=== PATIENT | male | born 1930 | race Caucasian/White ===

== ENCOUNTER 2016-09-19 11:38 | Inpatient (IN) | payer MEDICARE ==
[~2016-09-19] VITALS: Ht 177.8 cm; Wt 72.0 kg
[2016-09-19] VITALS (13 sets, daily range): BP systolic 109–161; BP diastolic 55–76; PULSE 59–91; RESP 9–28; TEMP 97.5–97.8; O2SAT 79–95
[~2016-09-19 11:38] MED LIST: ALLO100 PO; APIX5 PO; CARV12.52 PO; FURO80 PO; HYDR12.56 PO; KCL10 PO; LISI5 PO; OCUV PO; PRAV10 PO; PRED10 PO; SYNT25TA PO; TAMS.4 PO; VITA-13 PO
--- NOTE | 2016-09-19 11:59 | PD ---
HPI Chief Complaint: SOB Time Seen by Provider: 11:58 Travel History International Travel<30 days: No Contact w/Intl Traveler<30days: No History of Present Illness HPI 86-year-old male with a history of atrial fibrillation, CHF, PVD, diabetes, CAD , CKD presents to the emergency department for evaluation of shortness of breath for the past several days. States that the shortness of breath has been worsening. States he has felt weak and tired over the past week as well. 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 He denies any cough or cold symptoms although states he feels he may have pneumonia again. Denies any fever, chills, nausea, vomiting, diarrhea, chest pain, abdominal pain, lightheadedness, dizziness. He denies a history of COPD but admits that he smoked up until 12 years ago. He does not have home oxygen, states that his saturations are usually around 92-96%. [facility] No other complaints. PFSH Past Medical History Atrial Fibrillation: Yes (CARDIOMYOPATHY/DILATED AORTA) Cancer: No Congestive Heart Failure: Yes Coronary Artery Disease: Yes Diabetes: Yes GERD: Yes Glaucoma: Yes (CATARACT) Genitourinary: Yes (BPH ) Herniated Disk: Yes (DJD) Hypertension: Yes Kidney Stones: Yes Musculoskeletal: Yes (DJD OF SPINE) Psychiatric: No Reproductive: No Respiratory: Yes Thyroid Disease: Yes (HYPO) Social History Alcohol Use: No Tobacco Use: No Substance Use: No Allergies-Medications (Allergen,Severity, Reaction): Coded Allergies: Simvastatin (Unverified Adverse Reaction, Unknown, 09/19/16) Reported Meds & Prescriptions Reported Meds & Active Scripts Active Reported Coumadin (Warfarin) 2 Mg Tab 2 Mg PO DAILY Vitamin D-3 (Cholecalciferol) 1,000 Unit Tab 1,000 Units PO DAILY Pravastatin 40 Mg Tab 40 Mg PO DAILY Prednisone 10 Mg Tab 10 Mg PO DAILY Tamsulosin (Tamsulosin HCl) 0.4 Mg Cap 0.4 Mg PO HS Potassium Chloride ER (Potassium Chloride) 10 Meq Cap 10 Meq PO DAILY Allopurinol 100 Mg Tab 100 Mg PO DAILY Synthroid (Levothyroxine Sodium) 25 Mcg Tab 25 Mcg PO DAILY Lasix (Furosemide) 80 Mg Tab 80 Mg PO DAILY Hydrochlorothiazide 12.5 Mg Cap 12.5 Mg PO DAILY Lisinopril 5 Mg Tab 5 Mg PO DAILY Carvedilol 12.5 Mg Tab 12.5 Mg PO BID Review of Systems Except as stated in HPI: all other systems reviewed are Neg Physical Exam Narrative GENERAL: Well-nourished and well-developed male patient with moderate work of breathing but speaking in full sentences. SKIN: Lips are blue, hands and feet with some cyanotic tinting and cool to touch. HEAD: Normocephalic and atraumatic. EYES: No injection, drainage, or hyphema noted. PERRLA. EOMI. ENT: No nasal drainage noted. Oropharynx is clear. NECK: Supple and the trachea is midline. CARDIOVASCULAR: Regular rate and rhythm. RESPIRATORY: Moderate work of breathing, no retractions, speaking in full sentences. Wheezing bilaterally at bases. GASTROINTESTINAL: Abdomen is soft, non-tender, and nondistended. RECTAL EXAM: No masses or tenderness, stool is brown. Performed in the presence of Arleth MELÉNDEZ. MUSCULOSKELETAL: No obvious deformities, swelling, or ecchymosis is present throughout the upper and lower extremities. Patient has full range of motion without any signs of neurovascular compromise. NEUROLOGICAL: Awake, alert, and oriented. Normal speech and gait. Cranial nerves are grossly intact. Data Data Last Documented VS Vital Signs Date Time Temp Pulse Resp B/P Pulse Ox O2 Delivery O2 Flow Rate FiO2 09/19/16 13:12 61 18 161/76 87 BiPAP 09/19/16 12:11 15 09/19/16 11:56 97.6 Orders Complete Blood Count With Diff (09/19/16 11:57) Comprehensive Metabolic Panel (09/19/16 11:57) B-Type Natriuretic Peptide (09/19/16 11:57) Act Partial Throm Time (Ptt) (09/19/16 11:57) Prothrombin Time / Inr (Pt) (09/19/16 11:57) Magnesium (Mg) (09/19/16 11:57) Ckmb (Isoenzyme) Profile (09/19/16 11:57) Troponin I (09/19/16 11:57) Arterial Blood Gas (Abg) (09/19/16 11:57) Influenzae A/B Antigen (09/19/16 11:57) Iv Access Insert/Monitor (09/19/16 11:57) Electrocardiogram (09/19/16 11:57) Ecg Monitoring (09/19/16 11:57) Oximetry (09/19/16 11:57) Oxygen Administration (09/19/16 11:57) Chest, Single Ap (09/19/16 11:57) Sodium Chloride 0.9% Flush (Ns Flush) (09/19/16 12:00) Albuterol Neb (Albuterol Neb) (09/19/16 12:00) CKMB (09/19/16 11:55) CKMB% (09/19/16 11:55) Lactic Acid Sepsis Protocol (09/19/16 13:02) Blood Culture (09/19/16 13:02) Blood Glucose (09/19/16 13:02) Ceftriaxone Inj (Rocephin Inj) (09/19/16 13:15) Azithromycin Inj (Zithromax Inj) (09/19/16 13:15) Furosemide Inj (Lasix Inj) (09/19/16 13:15) Phytonadione Inj (Vitamin K Inj) (09/19/16 13:30) Admit Order (Ed Use Only) (09/19/16 13:27) Labs Laboratory Tests Test 09/19/16 09/19/16 11:55 12:00 White Blood Count 14.5 TH/MM3 Red Blood Count 5.53 MIL/MM3 Hemoglobin 17.5 GM/DL Hematocrit 54.4 % Mean Corpuscular Volume 98.5 FL Mean Corpuscular Hemoglobin 31.7 PG Mean Corpuscular Hemoglobin 32.2 % Concent Red Cell Distribution Width 17.3 % Platelet Count 261 TH/MM3 Mean Platelet Volume 8.4 FL Neutrophils (%) (Auto) % Lymphocytes (%) (Auto) % Monocytes (%) (Auto) % Eosinophils (%) (Auto) % Basophils (%) (Auto) % Neutrophils # (Auto) TH/MM3 Lymphocytes # (Auto) TH/MM3 Monocytes # (Auto) TH/MM3 Eosinophils # (Auto) TH/MM3 Basophils # (Auto) TH/MM3 CBC Comment AUTO DIFF Differential Total Cells 100 Counted Neutrophils % (Manual) 32 % Lymphocytes % 64 % Monocytes % 4 % Neutrophils # (Manual) 4.6 TH/MM3 Differential Comment FINAL DIFF MANUAL Smudge Cells PRESENT Platelet Estimate NORMAL Platelet Morphology Comment NORMAL Red Cell Morphology Comment NORMAL Prothrombin Time GREATER THAN 180.0 SEC Prothromb Time International GREATER THAN Ratio 14.5 RATIO Activated Partial 68.6 SEC Thromboplast Time Sodium Level 143 MEQ/L Potassium Level 5.1 MEQ/L Chloride Level 103 MEQ/L Carbon Dioxide Level 28.1 MEQ/L Anion Gap 12 MEQ/L Blood Urea Nitrogen 65 MG/DL Creatinine 2.42 MG/DL Estimat Glomerular Filtration 26 ML/MIN Rate Random Glucose 117 MG/DL Calcium Level 8.8 MG/DL Magnesium Level 2.4 MG/DL Total Bilirubin 1.3 MG/DL Aspartate Amino Transf 21 U/L (AST/SGOT) Alanine Aminotransferase 17 U/L (ALT/SGPT) Alkaline Phosphatase 129 U/L Total Creatine Kinase 101 U/L Creatine Kinase MB 3.3 NG/ML Troponin I 0.03 NG/ML B-Type Natriuretic Peptide 3058 PG/ML Total Protein 7.4 GM/DL Albumin 3.4 GM/DL Blood Gas Puncture Site RT RADIAL Blood Gas Patient Temperature 98.6 Blood Gas HCO3 23 mmol/L Blood Gas Base Excess -3.3 mmol/L Blood Gas Oxygen Saturation 96 % Arterial Blood pH 7.27 Arterial Blood Partial 51 mmHg Pressure CO2 Arterial Blood Partial 239 mmHG Pressure O2 Arterial Blood Oxygen Content 23.5 Vol % Arterial Blood 2.0 % Carboxyhemoglobin Arterial Blood Methemoglobin 1.6 % Blood Gas Hemoglobin 17.2 G/DL Oxygen Delivery Device NRB Blood Gas Liter Flow 15 L/M Blood Gas Inspired Oxygen 100 % MDM Medical Decision Making Medical Screen Exam Complete: Yes Emergency Medical Condition: Yes Differential Diagnosis Hypoxemic respiratory failure versus acute on chronic respiratory failure versus pneumonia versus ACS versus CHF Narrative Course 86-year-old male presents to the emergency Department from home for evaluation of worsening shortness of breath. Patient is afebrile. His initial oxygen saturation is 81% on room air and his lips are cyanotic. Despite these findings he is able to speak full sentences. He has wheezing of his lungs on exam. Patient is immediately placed on nonrebreather oxygen and cardiac telemetry. IV access is obtained, labs were drawn and sent. Arterial blood gas shows respiratory acidosis with CO2 retention. Patient is placed on bipap and administered albuterol nebs. Chest x-ray shows right-sided pneumonia. CBC shows an elevated white blood cell count of 14.5. CMP shows elevated creatinine of 2.42, BUN 65, GFR 26. This is elevated from previous lab values 2 years ago. Troponin is 0.03. BNP is significantly elevated at 3058. INR is greater than 14.5, PT greater than 180, aPTT 68.6. Patient is administered Rocephin 1 g IV, Zithromax 500 mg IV, Lasix 40 mg IV, and Vitamin K 10 mg IV. His saturation remains around low 80's but this is difficult to determine reliability as he has poor perfusion. He reports his symptoms have improved after nebs and on bipap. He is still mentating well and speaking in full sentences. He will be admitted to the intensivists service for acute respiratory failure, community-acquired pneumonia, CHF exacerbation, supratherapeutic INR. I discussed the case with my attending physician Dr. Rooney who is aware of the patients history, physical examination findings, and treatment plan. [facility] Point of Care Internal Pos. & Neg. Controls: Passed Fecal Specimen Occult Blood: Negative Physician Communication Physician Communication My attending physician Dr. Rooney spoke with Dr. Nix burlapper who agrees to admit the patient to their service. Diagnosis Primary Impression: Acute hypoxemic respiratory failure Additional Impressions: Community acquired pneumonia [id number] kidney injury CHF exacerbation Qualified Code: I50.9 - Acute on chronic congestive heart failure, unspecified congestive heart failure type Supratherapeutic INR Admitting Information Admitting Physician Requests: Admit Tonya Graf Sep 19, 2016 11:58
[2016-09-19] MEDS ORDERED: SODIUM CHLORIDE 0.9% FLUSH 5 ML FLUSH IVF PRN (12:00)
[2016-09-19] MEDS ORDERED: APIX5TAB PO (12:10)
[2016-09-19] MEDS ORDERED: PRAV40TA2 PO (12:10)
[2016-09-19] MEDS ORDERED: HYDR12.57 PO (12:10)
[2016-09-19] MEDS ORDERED: PRED10 PO (12:10)
[2016-09-19] MEDS ORDERED: FURO1TAB61 PO (12:10)
[2016-09-19] MEDS ORDERED: POTA10CA PO (12:10)
[2016-09-19] MEDS ORDERED: TAMS0.4C4 PO (12:10)
[2016-09-19] MEDS ORDERED: SYNT25TA PO (12:10)
[2016-09-19] MEDS ORDERED: ALLO100T PO (12:10)
[2016-09-19] MEDS ORDERED: LISI-519 PO (12:10)
[2016-09-19] MEDS ORDERED: CARV12.52 PO (12:10)
[2016-09-19] MEDS ORDERED: VITA10003 PO (12:10)
[2016-09-19] MEDS: RESP: ALBUTEROL 2.5 MG/3 ML NEB (SCH) INH (12:24)
[2016-09-19 12:27] LABS: HEMATOCRIT 54.4 % (39.0-51.0); MEAN CELL VOLUME 98.5 FL (80.0-100.0); MEAN CORPUSCULAR HEMOGLOBIN 31.7 PG (27.0-34.0); MEAN CORPUSCULAR HGB CONC 32.2 % (32.0-36.0); PLATELET COUNT 261 TH/MM3 (150-450); RED BLOOD COUNT 5.53 MIL/MM3 (4.50-5.90); RED CELL DISTRIBUTION WIDTH 17.3 % (11.6-17.2); WHITE BLOOD COUNT 14.5 TH/MM3 (4.0-11.0)
[2016-09-19 12:30] LABS: HEMO FLAGS AUTO DIFF
[2016-09-19 12:43] LABS: ALT (GPT) 17 U/L (12-78); ANION GAP 12 MEQ/L (5-15); AST (GOT) 21 U/L (15-37); BICARBONATE 28.1 MEQ/L (21.0-32.0); BLOOD UREA NITROGEN 65 MG/DL (7-18); CHLORIDE 103 MEQ/L (98-107); GLOMERULAR FILTRATION RATE 26 ML/MIN (>89); MAGNESIUM 2.4 MG/DL (1.5-2.5); POTASSIUM 5.1 MEQ/L (3.5-5.1); SODIUM (NA) 143 MEQ/L (136-145)
--- NOTE | 2016-09-19 12:46 | RADRPT ---
EXAM DATE/TIME: 09/19/2016 12:04 [facility] COMPARISON: CHEST SINGLE AP, October 05, 2014, 9:50. INDICATIONS : Shortness of breath. MEDICAL HISTORY : Hypertension. Congestive heart failure. Hypertension. SURGICAL HISTORY : Pacemaker. ENCOUNTER: Initial ACUITY: 1 day PAIN SCORE: 0/10 LOCATION: Bilateral chest FINDINGS: A single view of the chest demonstrates right perihilar airspace disease. Heart borderline enlarged. Left-sided defibrillator. The cardiomediastinal contours are unremarkable. Osseous structures are i ntact. CONCLUSION: Right perihilar airspace disease likely pneumonia. Clayton Contreras MD on September 19, 2016 at 12:40 Board Certified Radiologist. This report was verified electronically.
[2016-09-19 12:47] LABS: ALKALINE PHOSPHATASE 129 U/L (45-117); CREATINE KINASE 101 U/L (39-308); TOTAL BILIRUBIN ADULT 1.3 MG/DL (0.2-1.0)
[2016-09-19 12:56] LABS: APTT (PATIENT) 68.6 SEC (24.3-30.1)
[2016-09-19 12:57] LABS: PROTHROMBIN TIME - PATIENT GREATER THAN 180.0 SEC (9.8-11.6)
[2016-09-19 12:59] LABS: CKMB 3.3 NG/ML (0.5-3.6)
[2016-09-19 13:02] LABS: INTERNATIONAL NORMALIZED RATIO GREATER THAN 14.5 RATIO
[2016-09-19] MEDS ORDERED: COUM2TAB PO (13:05)
[2016-09-19 13:06] LABS: NEUTROPHIL # MANUAL DIFF 4.6 TH/MM3 (1.8-7.7); POLYS (SEG NEUTROPHILS) 32 % (16-70); WBC DIFF SAMPLE 100
[2016-09-19 13:08] LABS: SMUDGE CELLS PRESENT PRESENT
[2016-09-19 13:10] LABS: PLATELET ESTIMATE SMEAR NORMAL (NORMAL); PLATELET MORPHOLOGY NORMAL (NORMAL); SCAN/DIFF FINAL DIFF MANUAL
[2016-09-19] MEDS ORDERED: AZITHROMYCIN INJ 500 MG in SODIUM CHLOR 0.9% 250 ML INJ 250 ML IV ONE (13:15)
[2016-09-19] MEDS ORDERED: FUROSEMIDE 40 MG/4 ML VIAL IV PUSH ONE (13:15)
[2016-09-19] MEDS ORDERED: cefTRIAXone INJ 1,000 MG in SODIUM CHLORIDE 0.9% INJ 100 ML IV ONE (13:15)
[2016-09-19 13:24] LABS: BLOOD GAS BASE EXCESS -3.3 mmol/L (-2-2); BLOOD GAS HCO3 23 mmol/L (22-26); BLOOD GAS METHEMOGLOBIN 1.6 % (0-2); BLOOD GAS O2 HGB SATURATION 96 % (90-100); BLOOD GAS OXYGEN CONTENT 23.5 Vol % (12.0-20.0); BLOOD GAS PCO2 51 mmHg (38-42); BLOOD GAS PO2 239 mmHG (61-120); BLOOD GAS TOTAL HGB 17.2 G/DL (12.0-16.0); TEMP CORR TO 98.6
[2016-09-19 13:25] LABS: CRITICAL VALUE YES; DRAW SITE RT RADIAL; FIO2 100 %; LITER FLOW 15 L/M; NUMBER OF ARTERIAL PUNCTURES 1; OXYGEN DEVICE NRB
[2016-09-19 13:26] LABS: STAT YES; ULNAR PULSE Y
[2016-09-19] MEDS ORDERED: PHYTONADIONE INJ 10 MG in SODIUM CHLORIDE 0.9% INJ 50 ML IV ONE (13:30)
--- NOTE | 2016-09-19 13:32 | PD ---
Physical Exam Narrative I, Dr. Rooney, have reviewed the advance practice practitioner's documentation and am in agreement, met with the patient face to face, made the diagnosis, and the medical decision making was done by me. *My assessment and Findings: Acute hypoxic respiratory failure 86yo M with multiple PMH here with sob for a few days. Pt has cold peripheral extremities and cyanotic lips. Pt is AAOx3 and speaking in complete sentences but unable to obtain a good waveform on pulse oximetry. ABG was obtained stat while on 100% nonrebreather. ABG showed respiratory acidosis with pH of 7.26 and pCO2 51.1. pO2 is 239. Met hemoglobin is 1.6. Hemoconcentrated with H/H at 17.5/54.4. WBC elevated at 14.5. Lactic acid normal at 1.9. Pt with acute on chronic kidney injury with creatinine elevated at 2.42. BNP is markedly elevated at 3058. Pt was immediately placed on BIPAP since mental status is good and doing better on BIPAP. Lasix 40mg IV given. Troponin 0.03. INR is elevated at 14.5. Pt admits to taking his coumadin and havent checked his INR. Occult blood negative. Pt was given vitamin K 10mg IV for supratherapuetic INR. CXR showed right perihilar airspace disease likely pneumonia. Pt given ceftriaxone and azithromycin. Discussed with Dr. Nix and accepted to ICU. Data Data Last Documented VS Vital Signs Date Time Temp Pulse Resp B/P Pulse Ox O2 Delivery O2 Flow Rate FiO2 09/19/16 13:12 61 18 161/76 87 BiPAP 09/19/16 12:25 100 09/19/16 12:11 15 09/19/16 11:56 97.6 Orders Complete Blood Count With Diff (09/19/16 11:57) Comprehensive Metabolic Panel (09/19/16 11:57) B-Type Natriuretic Peptide (09/19/16 11:57) Act Partial Throm Time (Ptt) (09/19/16 11:57) Prothrombin Time / Inr (Pt) (09/19/16 11:57) Magnesium (Mg) (09/19/16 11:57) Ckmb (Isoenzyme) Profile (09/19/16 11:57) Troponin I (09/19/16 11:57) Arterial Blood Gas (Abg) (09/19/16 11:57) Influenzae A/B Antigen (09/19/16 11:57) Iv Access Insert/Monitor (09/19/16 11:57) Electrocardiogram (09/19/16 11:57) Ecg Monitoring (09/19/16 11:57) Oximetry (09/19/16 11:57) Oxygen Administration (09/19/16 11:57) Chest, Single Ap (09/19/16 11:57) Sodium Chloride 0.9% Flush (Ns Flush) (09/19/16 12:00) Albuterol Neb (Albuterol Neb) (09/19/16 12:00) CKMB (09/19/16 11:55) CKMB% (09/19/16 11:55) Lactic Acid Sepsis Protocol (09/19/16 13:02) Blood Culture (09/19/16 13:02) Blood Glucose (09/19/16 13:02) Ceftriaxone Inj (Rocephin Inj) (09/19/16 13:15) Azithromycin Inj (Zithromax Inj) (09/19/16 13:15) Furosemide Inj (Lasix Inj) (09/19/16 13:15) Phytonadione Inj (Vitamin K Inj) (09/19/16 13:30) Admit Order (Ed Use Only) (09/19/16 13:27) Labs Laboratory Tests Test 09/19/16 09/19/16 09/19/16 11:55 12:00 13:20 White Blood Count 14.5 TH/MM3 Red Blood Count 5.53 MIL/MM3 Hemoglobin 17.5 GM/DL Hematocrit 54.4 % Mean Corpuscular Volume 98.5 FL Mean Corpuscular Hemoglobin 31.7 PG Mean Corpuscular Hemoglobin 32.2 % Concent Red Cell Distribution Width 17.3 % Platelet Count 261 TH/MM3 Mean Platelet Volume 8.4 FL Neutrophils (%) (Auto) % Lymphocytes (%) (Auto) % Monocytes (%) (Auto) % Eosinophils (%) (Auto) % Basophils (%) (Auto) % Neutrophils # (Auto) TH/MM3 Lymphocytes # (Auto) TH/MM3 Monocytes # (Auto) TH/MM3 Eosinophils # (Auto) TH/MM3 Basophils # (Auto) TH/MM3 CBC Comment AUTO DIFF Differential Total Cells 100 Counted Neutrophils % (Manual) 32 % Lymphocytes % 64 % Monocytes % 4 % Neutrophils # (Manual) 4.6 TH/MM3 Differential Comment FINAL DIFF MANUAL Smudge Cells PRESENT Platelet Estimate NORMAL Platelet Morphology Comment NORMAL Red Cell Morphology Comment NORMAL Prothrombin Time GREATER THAN 180.0 SEC Prothromb Time International GREATER THAN Ratio 14.5 RATIO Activated Partial 68.6 SEC Thromboplast Time Sodium Level 143 MEQ/L Potassium Level 5.1 MEQ/L Chloride Level 103 MEQ/L Carbon Dioxide Level 28.1 MEQ/L Anion Gap 12 MEQ/L Blood Urea Nitrogen 65 MG/DL Creatinine 2.42 MG/DL Estimat Glomerular Filtration 26 ML/MIN Rate Random Glucose 117 MG/DL Calcium Level 8.8 MG/DL Magnesium Level 2.4 MG/DL Total Bilirubin 1.3 MG/DL Aspartate Amino Transf 21 U/L (AST/SGOT) Alanine Aminotransferase 17 U/L (ALT/SGPT) Alkaline Phosphatase 129 U/L Total Creatine Kinase 101 U/L Creatine Kinase MB 3.3 NG/ML Troponin I 0.03 NG/ML B-Type Natriuretic Peptide 3058 PG/ML Total Protein 7.4 GM/DL Albumin 3.4 GM/DL Thyroid Stimulating Hormone 5.160 uIU/ML 3rd Gen Blood Gas Puncture Site RT RADIAL Blood Gas Patient Temperature 98.6 Blood Gas HCO3 23 mmol/L Blood Gas Base Excess -3.3 mmol/L Blood Gas Oxygen Saturation 96 % Arterial Blood pH 7.27 Arterial Blood Partial 51 mmHg Pressure CO2 Arterial Blood Partial 239 mmHG Pressure O2 Arterial Blood Oxygen Content 23.5 Vol % Arterial Blood 2.0 % Carboxyhemoglobin Arterial Blood Methemoglobin 1.6 % Blood Gas Hemoglobin 17.2 G/DL Oxygen Delivery Device NRB Blood Gas Liter Flow 15 L/M Blood Gas Inspired Oxygen 100 % Lactic Acid Level 1.9 mmol/L [facility] Supervised Visit with DOMINIQUE: Yes Interpretation(s) EKG: Afib at 70bpm. Low voltage. Q wave V2, V3, V4, V5. Last Impressions Chest X-Ray 09/19/16 1157 Signed Impressions: Service Date/Time: Monday, September 19, 2016 12:04 - CONCLUSION: Right perihilar airspace disease likely pneumonia. Clayton Contreras MD Renal Ultrasound 09/19/16 0000 Signed Impressions: Service Date/Time: Monday, September 19, 2016 14:57 - CONCLUSION: 1. Right sided renal cysts. 2. Nonobstructing calculus lower pole left kidney as described above. 3. Ascites and right pleural effusion. Clayton Contreras MD Head CT 09/19/16 0000 Signed Impressions: Service Date/Time: Monday, September 19, 2016 15:48 - CONCLUSION: 1. Remote lacunar infarcts. 2. No acute intracranial abnormality. Clayton Contreras MD Laboratory Tests Test 09/19/16 09/19/16 09/19/16 11:55 12:00 13:20 White Blood Count 14.5 TH/MM3 (4.0-11.0) Red Blood Count 5.53 MIL/MM3 (4.50-5.90) Hemoglobin 17.5 GM/DL (13.0-17.0) Hematocrit 54.4 % (39.0-51.0) Mean Corpuscular Volume 98.5 FL (80.0-100.0) Mean Corpuscular Hemoglobin 31.7 PG (27.0-34.0) Mean Corpuscular Hemoglobin 32.2 % Concent (32.0-36.0) Red Cell Distribution Width 17.3 % (11.6-17.2) Platelet Count 261 TH/MM3 (150-450) Mean Platelet Volume 8.4 FL (7.0-11.0) Neutrophils (%) (Auto) % (16.0-70.0) Lymphocytes (%) (Auto) % (9.0-44.0) Monocytes (%) (Auto) % (0.0-8.0) Eosinophils (%) (Auto) % (0.0-4.0) Basophils (%) (Auto) % (0.0-2.0) Neutrophils # (Auto) TH/MM3 (1.8-7.7) Lymphocytes # (Auto) TH/MM3 (1.0-4.8) Monocytes # (Auto) TH/MM3 (0-0.9) Eosinophils # (Auto) TH/MM3 (0-0.4) Basophils # (Auto) TH/MM3 (0-0.2) CBC Comment AUTO DIFF Differential Total Cells 100 Counted Neutrophils % (Manual) 32 % (16-70) Lymphocytes % 64 % (9-44) Monocytes % 4 % (0-8) Neutrophils # (Manual) 4.6 TH/MM3 (1.8-7.7) Differential Comment FINAL DIFF MANUAL Smudge Cells PRESENT Platelet Estimate NORMAL (NORMAL) Platelet Morphology Comment NORMAL (NORMAL) Red Cell Morphology Comment NORMAL (NORMAL) Prothrombin Time GREATER THAN 180.0 SEC (9.8-11.6) Prothromb Time International GREATER THAN Ratio 14.5 RATIO Activated Partial 68.6 SEC Thromboplast Time (24.3-30.1) Sodium Level 143 MEQ/L (136-145) Potassium Level 5.1 MEQ/L (3.5-5.1) Chloride Level 103 MEQ/L (98-107) Carbon Dioxide Level 28.1 MEQ/L (21.0-32.0) Anion Gap 12 MEQ/L (5-15) Blood Urea Nitrogen 65 MG/DL (7-18) Creatinine 2.42 MG/DL (0.60-1.30) Estimat Glomerular Filtration 26 ML/MIN (>89) Rate Random Glucose 117 MG/DL (74-106) Calcium Level 8.8 MG/DL (8.5-10.1) Magnesium Level 2.4 MG/DL (1.5-2.5) Total Bilirubin 1.3 MG/DL (0.2-1.0) Aspartate Amino Transf 21 U/L (15-37) (AST/SGOT) Alanine Aminotransferase 17 U/L (12-78) (ALT/SGPT) Alkaline Phosphatase 129 U/L (45-117) Total Creatine Kinase 101 U/L (39-308) Creatine Kinase MB 3.3 NG/ML (0.5-3.6) Troponin I 0.03 NG/ML (0.02-0.05) B-Type Natriuretic Peptide 3058 PG/ML (0-100) Total Protein 7.4 GM/DL (6.4-8.2) Albumin 3.4 GM/DL (3.4-5.0) Thyroid Stimulating Hormone 5.160 uIU/ML 3rd Gen (0.358-3.740) Blood Gas Puncture Site RT RADIAL Blood Gas Patient Temperature 98.6 Blood Gas HCO3 23 mmol/L (22-26) Blood Gas Base Excess -3.3 mmol/L (-2-2) Blood Gas Oxygen Saturation 96 % (90-100) Arterial Blood pH 7.27 (7.380-7.420) Arterial Blood Partial 51 mmHg (38-42) Pressure CO2 Arterial Blood Partial 239 mmHG Pressure O2 (61-120) Arterial Blood Oxygen Content 23.5 Vol % (12.0-20.0) Arterial Blood 2.0 % (0-4) Carboxyhemoglobin Arterial Blood Methemoglobin 1.6 % (0-2) Blood Gas Hemoglobin 17.2 G/DL (12.0-16.0) Oxygen Delivery Device NRB Blood Gas Liter Flow 15 L/M Blood Gas Inspired Oxygen 100 % Lactic Acid Level 1.9 mmol/L (0.4-2.0) Critical Care Narrative Aggregate critical care time was 50 minutes. Time to perform other separately billable procedures was not included in the critical care time. My time did not include minutes spent treating any other patients simultaneously or on activities that did not directly contribute to the patient's treatment. The services I provided to this patient were to treat and/or prevent clinically significant deterioration that could result in: cardiovascular collapse or . I provided critical care services requiring my management, as noted below: Chart data review, documentation time, medication orders and management, vital sign assessments/reviewing monitor data, ordering and reviewing lab tests, ordering and interpreting/reviewing x-rays and diagnostic studies, care of the patient and discussion of the patient with the admitting physicians. Diagnosis Primary Impression: Acute hypoxemic respiratory failure Additional Impressions: Supratherapeutic INR Community acquired pneumonia [id number] kidney injury CHF exacerbation Qualified Code: I50.9 - Acute on chronic congestive heart failure, unspecified congestive heart failure type Admitting Information Admitting Physician Requests: Admit Dawna Rooney DO Sep 19, 2016 13:32
[2016-09-19] MEDS ORDERED: MISCELLANEOUS NURSING INFORMATION XX SCH (13:45)
[2016-09-19] MEDS ORDERED: CHLORHEXIDINE GLUCONATE 2 % 1 PACK (2 CLOTHS) TOP PRN (13:45)
[2016-09-19] MEDS ORDERED: DEXTROSE 50% IN WATER 50 ML VIAL(D50) IV PUSH PRN (13:45)
[2016-09-19] MEDS ORDERED: GLUCAGON 1 MG/ML VIAL OTHER PRN (13:45)
[2016-09-19] MEDS ORDERED: RESP: ALBUTEROL 2.5 MG/IPRATROPIUM 0.5 MG NEB (PRN) INH (13:45)
[2016-09-19] MEDS ORDERED: cefTRIAXone INJ 1,000 MG in SODIUM CHLORIDE 0.9% INJ 100 ML IV SCH (14:00)
[2016-09-19] MEDS: INSULIN NovoLIN REGULAR SUPPLEMENTAL SCALE SQ SCH ×2 (14:00→20:00)
[2016-09-19 15:06] LABS: BACTERIA, URINE MANY /hpf; BLOOD, URINE LARGE (NEG); COMMENT (UR) CATH-CULTURE IND; CULTURE IF INDICATED CATH CULTURE IND; GLUCOSE,URINE NEG (NEG); HYALINE CAST, URINE 39 /lpf (RARE); KETONE, URINE NEG (NEG); MUCUS URINE MANY /lpf (OCC); NITRITE,URINE NEG (NEG); URINE COLOR DARK-YELLOW (YELLW/STRAW)
[2016-09-19] MEDS: methylPREDNISolone SOD SUCC 40 MG/1 ML VIAL IV PUSH SCH ×2 (15:07→22:03)
[2016-09-19] MEDS: PANTOPRAZOLE SODIUM 40 MG VIAL IV SCH (15:07)
--- NOTE | 2016-09-19 15:20 | MH ---
cc: ANAM NORRIS M.D. DATE OF ADMISSION: 09/19/2016 DATE OF : 1930 HISTORY OF PRESENT ILLNESS The patient is an 86-year-old male with past medical history of chronic atrial fibrillation on Coumadin, CHF, COPD, peripheral vascular disease, diabetes mellitus, chronic kidney disease, cardiomyopathy with EF of 20%, who presented to the ED for worsening shortness of breath for the past several days. He denies any associated symptoms of chest pain, cough or any constitutional symptoms. In addition, the patient denies any nausea, vomiting or abdominal pain. On arrival to the ED the patient was hypoxic with O2 saturation in the 80s. He was subsequently placed on a non-rebreather mask. An ABG was obtained which showed a pH of 7.27, CO2 51, PAO2 239, bicarb of 23 and saturation 96%. His laboratory data was significant for acute kidney injury with creatinine level of 2.42 and BNP of 3058. Also, he was found to have leukocytosis with a WBC of 14.5 and was coagulopathic with an INR greater than 14.5. His chest x-ray in the ER showed right perihilar airspace disease, likely pneumonia. He is in the process of receiving vitamin-K 10 mg IV. In addition, the patient received Rocephin, azithromycin and Lasix 40 mg IV push. The patient is on p.o. prednisone at home. PAST MEDICAL HISTORY 1. CHF. 2. Cardiomyopathy. 3. Atrial fibrillation. 4. Peripheral vascular disease. 5. Diabetes mellitus. 6. Coronary artery disease. 7. Chronic kidney disease. 8. Questionable COPD. 9. Hypothyroidism. 10.History of CLL. FAMILY HISTORY Coronary artery disease runs in the family. SOCIAL HISTORY The patient is retired. Quit smoking 12 years ago. Ex-drinker. ALLERGIES SIMVASTATIN. MEDICATIONS Reported medications include: 1. Prednisone 10 mg daily. 2. Lisinopril. 3. Warfarin. 4. Allopurinol. 5. Coreg. 6. Pravastatin. 7. Lasix. 8. Potassium supplement. 9. Hydrochlorothiazide. 10.Synthroid. 11.Vitamin-D. REVIEW OF SYSTEMS As per HPI. The rest of the review of systems is unremarkable. PHYSICAL EXAMINATION GENERAL: An 86-year-old male lying in bed in mild respiratory distress. VITAL SIGNS: Temperature 97.6, pulse 66, respiratory rate 22, blood pressure 123/62. Saturation on the monitor reading 87%, however, O2 saturation on the blood gas 96%. HEENT: Atraumatic, normocephalic. Pupils equal, round, and reactive to light and accommodation. Extraocular muscles intact. Conjunctiva pink. Non-icteric sclera. Oral mucosa within normal. NECK: Supple. No JVD, adenopathy or thyromegaly. Trachea in the midline. CARDIOVASCULAR: Irregularly irregular. Normal S1, S2. No murmurs, rubs or gallops noted. PULMONARY: Bilateral equal entry. A few coarse breath sounds. ABDOMEN: Soft, nontender, no distension. Positive bowel sounds. EXTREMITIES: No cyanosis, clubbing or edema. SKIN: Cold and clammy. NEUROLOGIC: No focal sensory deficit. LABORATORY DATA Sodium 143, potassium 5.1, chloride 103, CO2 28, BUN 65, creatinine 2.42, glucose 170, lactic acid 1.9. BNP 3058. Troponin 0.03. Albumin 3.4. WBC 14.5, hemoglobin 17, hematocrit 54, platelet count 61. INR greater than 14.5. PT greater than 180. PTT 68.6. RADIOGRAPHIC STUDIES Chest x-ray showed right perihilar airspace disease, likely representing pneumonia. IMPRESSION 1. Acute hypercapnic respiratory failure. 2. Right-sided pneumonia. 3. CHF decompensation. 4. Cardiomyopathy with EF of 25% from echo of August 2014. 5. Acute on chronic kidney disease. 6. Coagulopathy secondary to Coumadin toxicity. 7. Hypothyroidism. 8. Atrial fibrillation. 9. Peripheral vascular disease. 10.History of diabetes mellitus. 11.Coronary artery disease. PLAN/RECOMMENDATIONS 1. Monitor neuro status closely and avoid any sedatives. 2. Will obtain a CT scan of the brain to rule out acute intracranial process in the setting of coagulopathy. 3. Wean down oxygen as tolerated and maintain sats above 92%. 4. Bronchodilators in the form of DuoNeb q.4h., plus q.2h. p.r.n. for shortness of breath. 5. Noninvasive positive pressure ventilation p.r.n. for respiratory distress. 6. Hold p.o. prednisone and place on Solu-Medrol 40 mg IV q.8h. 7. Monitor heart rate and blood pressure closely and maintain MAP greater than 65 mmHg. Lactic acid level measured at 1.9. I will obtain a 2-D echo to evaluate LV function. His last echo from 2 years ago showed EF of 25%. 8. Consult cardiology service. 9. Monitor renal function, I's and O's, and avoid nephrotoxins. Insert Godfrey. Will obtain a renal ultrasound to rule out hydronephrosis. Hold further diuretics. He was given Lasix 40 mg IV push in the ER. 10.Keep n.p.o. for now until respiratory status improves. 11.Continue with antibiotics in the form of Rocephin and azithromycin, and monitor for signs of infection which include fever and WBC. Will obtain a sputum culture with Gram stain and urinalysis with culture if indicated. 12.Sliding scale insulin with Accu-Chek q.6h. for glycemic control if needed. 13.Obtain a baseline TSH level and resume Synthroid 25mcg daily. 14.Monitor CBC and coags closely. He was given vitamin-K 10 mg IV push x1 in the ED. Will repeat PT and INR and monitor for signs of bleeding. 15.GI prophylaxis with Protonix 40 mg daily. 16.DVT prophylaxis with SCDs. 17.Patient with super therapeutic INR. No need for any further anticoagulation. 18.Further recommendations will be based on the hospital course. Critical care time 50 minutes excluding procedures. MD GRIS Rizvi/LOREN /2:22 PM /2:55 PM NELL
[2016-09-19] MEDS: RESP: ALBUTEROL 2.5 MG/IPRATROPIUM 0.5 MG NEB (SCH) INH ×3 (15:49→23:24)
--- NOTE | 2016-09-19 16:15 | RADRPT ---
EXAM DATE/TIME: 09/19/2016 15:48 [facility] COMPARISON: No previous studies available for comparison. INDICATIONS : Feeling sick for one week lips are cyanotic. RADIATION DOSE: 56.78 CTDIvol (mGy) MEDICAL HISTORY : Cardiovascular disease. Hypertension. Diabetic SURGICAL HISTORY : None. ENCOUNTER: Initial ACUITY: 1 week PAIN SCALE: 4/10 LOCATION: cranial TECHNIQUE: Multiple contiguous axial images were obtained of the head. Using automated exposure control and adj ustment of the mA and/or kV according to patient size, radiation dose was kept as low as reasonably a chievable to obtain optimal diagnostic quality images. FINDINGS: CEREBRUM: The ventricles are normal for age. No evidence of midline shift, mass lesion, hemorrhage or acute in farction. Old lacunar infarcts right basal ganglia and right cerebellum No extra-axial fluid collect ions are seen. POSTERIOR FOSSA: The brainstem is intact. The 4th ventricle is midline. The cerebellopontine angle is unremarkable. EXTRACRANIAL: The visualized portion of the orbits is intact. SKULL: The calvaria is intact. No evidence of skull fracture. CONCLUSION: 1. Remote lacunar infarcts. 2. No acute intracranial abnormality. Clayton Contreras MD on September 19, 2016 at 16:12 Board Certified Radiologist. This report was verified electronically.
--- NOTE | 2016-09-19 16:31 | RADRPT ---
EXAM DATE/TIME: 09/19/2016 14:57 [facility] COMPARISON: No previous studies available for comparison. INDICATIONS : Acute kindey injury. MEDICAL HISTORY : Hypothyroidism. Congestive heart failure. Benign prostatic hyperplasia, (BPH) A-Fib. Cardiomyopathy. Dilated aorta. Coronary artery disease. Renal calculi. Degenerative disk disease. GERD. Hypertension. Peripheral vascular disease. Diabetes. SURGICAL HISTORY : Cardiac catheterization. Thoracentesis. ENCOUNTER: Initial ACUITY: 1 day PAIN SCORE: Nonresponsive. LOCATION: Bilateral flank MEASUREMENTS: RIGHT KIDNEY: 10.2 x 6.1 x 6.4 cm LEFT KIDNEY: 10.2 x 4.5 x 5.9 cm FINDINGS: RIGHT KIDNEY: Renal cortex is normal in thickness and echotexture. No hydronephrosis, stone, or mass. Simple cyst upper pole measures 24 x 16 x 17 mm. LEFT KIDNEY: Renal cortex is normal in thickness and echotexture. No hydronephrosis or mass. Simple cysts are se en. Echogenic foci lower pole measure 10 x 15 mm and 9 x 10 mm. BLADDER: Bladder empty and not seen. There is ascites. Right pleural effusion. CONCLUSION: 1. Right sided renal cysts. 2. Nonobstructing calculus lower pole left kidney as described above. 3. Ascites and right pleural effusion. Clayton Contreras MD on September 19, 2016 at 16:27 Board Certified Radiologist. This report was verified electronically.
--- NOTE | 2016-09-19 16:59 | EC ---
Study Study Date:09/19/2016 STUDY CONCLUSIONS SUMMARY - Left ventricle: The cavity size was mildly dilated. Wall thickness was normal. Systolic function was severely reduced by visual assessment. The estimated ejection fraction was in the range of 20% to 25%. Diffuse hypokinesis. - Aortic valve: Transvalvular velocity was increased less than expected, due to low cardiac output. There was mild stenosis. Valve area: 1.13cm^2(VTI). Valve area: 1.03cm^2 (Vmax). - Mitral valve: Mild to moderate regurgitation. - Left atrium: The atrium was mildly dilated. - Right ventricle: The cavity size was moderately dilated. Wall thickness was normal. - Right atrium: The atrium was moderately dilated. - Tricuspid valve: Moderate regurgitation. - Pulmonary arteries: Systolic pressure was moderately to severely increased. PA peak pressure: 63mm Hg (S). If LV function is below 40, please consider prescribing an ACEI or ARB or document rationale for non-use. PROCEDURE DATA STUDY STATUS: Elective. Procedure: Transthoracic echocardiography. Image quality was good. Scanning was performed from the parasternal, apical, and subcostal acoustic windows. Study completion: The patient tolerated the procedure well. Transthoracic echocardiography. M-mode, complete 2D, complete spectral Doppler, and color Doppler. Height: Height: 70in. Weight: Weight: 175.6lb. Body mass index: BMI: 25.3kg/m^2. Body surface area: BSA: 1.98m^2. Patient status: Inpatient. CARDIAC ANATOMY LEFT VENTRICLE: The cavity size was mildly dilated. Wall thickness was normal. Systolic function was severely reduced by visual assessment. The estimated ejection fraction was in the range of 20% to 25%. Diffuse hypokinesis. AORTIC VALVE: Trileaflet; mildly thickened, mildly calcified leaflets. Doppler: Transvalvular velocity was increased less than expected, due to low cardiac output. There was mild stenosis. No regurgitation. Valve area: 1.13cm^2(VTI). Indexed valve area: 0.57cm^2/m^2 (VTI). Valve area: 1.03cm^2 (Vmax). Indexed valve area: 0.52cm^2/m^2 (Vmax). Mean gradient: 6mm Hg (S). AORTA: Aortic root: The aortic root was normal in size. MITRAL VALVE: Structurally normal valve. Doppler: Transvalvular velocity was within the normal range. There was no evidence for stenosis. Mild to moderate regurgitation. Peak gradient: 3mm Hg (D). LEFT ATRIUM: The atrium was mildly dilated. RIGHT VENTRICLE: The cavity size was moderately dilated. Wall thickness was normal. PULMONIC VALVE: Doppler: Transvalvular velocity was within the normal range. There was no evidence for stenosis. No regurgitation. TRICUSPID VALVE: Structurally normal valve. Doppler: Transvalvular velocity was within the normal range. Moderate regurgitation. PULMONARY ARTERY: Systolic pressure was moderately to severely increased. RIGHT ATRIUM: The atrium was moderately dilated. PERICARDIUM: There was no pericardial effusion. SYSTEMIC VEINS: Inferior vena cava: The vessel was dilated. Patient weight: 175.6lb _Ejection fraction:_ 65-75% _Fractional shortening:_ 32% up to 5Kg 5-11.5Kg 11.6-22.9Kg 23-45Kg 45-57Kg Aortic Root 7-13 <17 13-22 17-27 17-27 LA diam 6-13 <23 24-38 33-47 37-40 RVID 10-17 7-15 7-15 7-18 8-17 LVIDd 12-22 <32 24-38 33-47 37-40 LVPW 2-4 3-6 5-7 6-8 7-8 IVS 2-4 3-6 5-7 6-8 7-8 BASIC MEASUREMENTS ADULT NORMAL Left ventricle LV internal dimension, ED, chordal *58.5 mm 43-52 level, PLAX LV internal dimension, ES, chordal *55.7 mm 23-38 level, PLAX Fractional shortening, chordal level, *5 % >29 PLAX LV posterior wall thickness, ED 6.14 mm IVS/LVPW ratio, ED 0.99 <1.3 Ventricular septum Septal thickness, ED 6.07 mm Aorta Root diameter, ED 30 mm Left atrium Anterior-posterior dimension 45 mm Anterior-posterior dimension index *2.27 cm/m^2 <2.2 DOPPLER MEASUREMENTS ADULT NORMAL Main pulmonary artery Pressure, S *63 mm Hg =30 Aortic valve Peak velocity, S 156 cm/s Mean velocity, S 112 cm/s VTI, S 31.2 cm Mean gradient, S 6 mm Hg Valve area, VTI 1.13 cm^2 Valve area index, VTI 0.57 cm^2/m^2 Valve area, Vmax 1.03 cm^2 Valve area index, Vmax 0.52 cm^2/m^2 Mitral valve Peak E-wave velocity 85.6 cm/s Peak gradient, D 3 mm Hg Tricuspid valve Regurgitant peak velocity 369 cm/s Peak RV-RA gradient, S 54 mm Hg Maximal regurgitant velocity 369 cm/s Systemic veins Estimated CVP 10 mm Hg Right ventricle RV pressure, S *64 mm Hg <30 Pulmonic valve Peak velocity, S 41.4 cm/s LEGEND: Mean values are shown as u=mean value. Asterisk (*) cm values outside specified normal range. Prepared and signed by Mat Santos [id number]
[2016-09-19 18:05] LABS: BLOOD GAS BASE EXCESS -3.1 mmol/L (-2-2); BLOOD GAS CARBOXYHEMOGLOBIN 1.6 % (0-4); BLOOD GAS HCO3 22 mmol/L (22-26); BLOOD GAS METHEMOGLOBIN 0.8 % (0-2); BLOOD GAS O2 HGB SATURATION 91 % (90-100); BLOOD GAS OXYGEN CONTENT 21.3 Vol % (12.0-20.0); BLOOD GAS PCO2 41 mmHg (38-42); BLOOD GAS PO2 72 mmHg (61-120); BLOOD GAS TOTAL HGB 16.7 G/DL (12.0-16.0); TEMP CORR TO 98.6
[2016-09-19 18:06] LABS: CRITICAL VALUE NO; DRAW SITE LT RADIAL; FIO2 40 %; NUMBER OF ARTERIAL PUNCTURES 1; OXYGEN DEVICE IPAP15/EPAP8; STAT NO; ULNAR PULSE PRESENT
[2016-09-19 19:46] LABS: INTERNATIONAL NORMALIZED RATIO 4.1 RATIO; PROTHROMBIN TIME - PATIENT 48.7 SEC (9.8-11.6)
[2016-09-20] VITALS (17 sets, daily range): BP systolic 105–122; BP diastolic 55–71; PULSE 67–96; RESP 18–35; TEMP 97.7–98.1; O2SAT 85–96
[2016-09-20] MEDS: INSULIN NovoLIN REGULAR SUPPLEMENTAL SCALE SQ SCH ×4 (02:00→23:17)
[2016-09-20] MEDS: RESP: ALBUTEROL 2.5 MG/IPRATROPIUM 0.5 MG NEB (SCH) INH ×6 (04:00→23:41)
[2016-09-20] MEDS: CHLORHEXIDINE GLUCONATE 2 % 1 PACK (2 CLOTHS) TOP SCH (04:00)
[2016-09-20 04:17] LABS: AUTOMATED NEUTROPHIL # 11.5 TH/MM3 (1.8-7.7); BASOPHIL % 0.1 % (0.0-2.0); HEMATOCRIT 47.8 % (39.0-51.0); LYMPH % 38.6 % (9.0-44.0); LYMPHOCYTE # 7.4 TH/MM3 (1.0-4.8); MEAN CELL VOLUME 97.2 FL (80.0-100.0); MEAN CORPUSCULAR HEMOGLOBIN 31.9 PG (27.0-34.0); MEAN CORPUSCULAR HGB CONC 32.8 % (32.0-36.0); MONO % 1.2 % (0.0-8.0); NEUT % 60.1 % (16.0-70.0); PLATELET COUNT 225 TH/MM3 (150-450); RED BLOOD COUNT 4.92 MIL/MM3 (4.50-5.90); RED CELL DISTRIBUTION WIDTH 16.5 % (11.6-17.2); WHITE BLOOD COUNT 19.2 TH/MM3 (4.0-11.0)
[2016-09-20 04:22] LABS: INTERNATIONAL NORMALIZED RATIO 1.8 RATIO; PROTHROMBIN TIME - PATIENT 20.2 SEC (9.8-11.6)
[2016-09-20] MEDS: methylPREDNISolone SOD SUCC 40 MG/1 ML VIAL IV PUSH SCH ×3 (04:35→23:16)
[2016-09-20 04:36] LABS: ANION GAP 13 MEQ/L (5-15); AST (GOT) 17 U/L (15-37); BICARBONATE 23.6 MEQ/L (21.0-32.0); BLOOD UREA NITROGEN 75 MG/DL (7-18); CHLORIDE 110 MEQ/L (98-107); GLOMERULAR FILTRATION RATE 27 ML/MIN (>89); POTASSIUM 4.4 MEQ/L (3.5-5.1); SODIUM (NA) 147 MEQ/L (136-145)
[2016-09-20] MEDS: LEVOTHYROXINE SODIUM 25 MCG TAB PO SCH (04:36)
[2016-09-20 04:41] LABS: ALKALINE PHOSPHATASE 110 U/L (45-117); ALT (GPT) 14 U/L (12-78); TOTAL BILIRUBIN ADULT 1.2 MG/DL (0.2-1.0)
[2016-09-20 04:44] LABS: HEMO FLAGS AUTO DIFF
[2016-09-20 06:46] LABS: BANDS 4 % (0-6); NEUTROPHIL # MANUAL DIFF 12.1 TH/MM3 (1.8-7.7); POLYS (SEG NEUTROPHILS) 59 % (16-70); WBC DIFF SAMPLE 100
[2016-09-20 06:47] LABS: PLATELET ESTIMATE SMEAR NORMAL (NORMAL); PLATELET MORPHOLOGY NORMAL (NORMAL); SCAN/DIFF FINAL DIFF MANUAL; SMUDGE CELLS PRESENT PRESENT
--- NOTE | 2016-09-20 08:02 | HHI.CCPN ---
Subjective Remarks/Hospital Course The patient is an 86-year-old male with past medical history of chronic atrial fibrillation on Coumadin, CHF, COPD, peripheral vascular disease, diabetes mellitus, chronic kidney disease, cardiomyopathy with EF of 20%, who presented to the ED for worsening shortness of breath for the past several days. He denies any associated symptoms of chest pain, cough or any constitutional symptoms. In addition, the patient denies any nausea, vomiting or abdominal pain. On arrival to the ED the patient was hypoxic with O2 saturation in the 80s. He was subsequently placed on a non-rebreather mask. An ABG was obtained which showed a pH of 7.27, CO2 51, PAO2 239, bicarb of 23 and saturation 96%. His laboratory data was significant for acute kidney injury with creatinine level of 2.42 and BNP of 3058. Also, he was found to have leukocytosis with a WBC of 14.5 and was coagulopathic with an INR greater than 14.5. His chest x- ray in the ER showed right perihilar airspace disease, likely pneumonia. He is in the process of receiving vitamin-K 10 mg IV. In addition, the patient received Rocephin, azithromycin and Lasix 40 mg IV push. The patient is on prednisone at home. 09/20 Patient was on BIPAP 15/ with 50% FIO2 this morning. Awake and alert. Afebrile WBC increased 19 from 14.5 yesterday. Objective Vital Signs Date Time Temp Pulse Resp B/P Pulse Ox O2 Delivery O2 Flow Rate FiO2 09/20/16 06:00 67 09/20/16 04:20 96 40 09/20/16 04:00 97.8 18 118/55 09/19/16 14:42 BiPAP 09/19/16 12:11 15 Result Diagram: 09/20/16 0318 09/20/168 Other Results Laboratory Tests Test 09/19/16 09/19/16 09/19/16 09/19/16 11:55 12:00 13:20 14:45 White Blood Count 14.5 TH/MM3 Red Blood Count 5.53 MIL/MM3 Hemoglobin 17.5 GM/DL Hematocrit 54.4 % Mean Corpuscular Volume 98.5 FL Mean Corpuscular Hemoglobin 31.7 PG Mean Corpuscular Hemoglobin 32.2 % Concent Red Cell Distribution Width 17.3 % Platelet Count 261 TH/MM3 Mean Platelet Volume 8.4 FL Neutrophils (%) (Auto) % Lymphocytes (%) (Auto) % Monocytes (%) (Auto) % Eosinophils (%) (Auto) % Basophils (%) (Auto) % Neutrophils # (Auto) TH/MM3 Lymphocytes # (Auto) TH/MM3 Monocytes # (Auto) TH/MM3 Eosinophils # (Auto) TH/MM3 Basophils # (Auto) TH/MM3 CBC Comment AUTO DIFF Differential Total Cells 100 Counted Neutrophils % (Manual) 32 % Lymphocytes % 64 % Monocytes % 4 % Neutrophils # (Manual) 4.6 TH/MM3 Differential Comment FINAL DIFF MANUAL Smudge Cells PRESENT Platelet Estimate NORMAL Platelet Morphology Comment NORMAL Red Cell Morphology Comment NORMAL Prothrombin Time GREATER THAN 180.0 SEC Prothromb Time International GREATER THAN Ratio 14.5 RATIO Activated Partial 68.6 SEC Thromboplast Time Sodium Level 143 MEQ/L Potassium Level 5.1 MEQ/L Chloride Level 103 MEQ/L Carbon Dioxide Level 28.1 MEQ/L Anion Gap 12 MEQ/L Blood Urea Nitrogen 65 MG/DL Creatinine 2.42 MG/DL Estimat Glomerular Filtration 26 ML/MIN Rate Random Glucose 117 MG/DL Calcium Level 8.8 MG/DL Magnesium Level 2.4 MG/DL Total Bilirubin 1.3 MG/DL Aspartate Amino Transf 21 U/L (AST/SGOT) Alanine Aminotransferase 17 U/L (ALT/SGPT) Alkaline Phosphatase 129 U/L Total Creatine Kinase 101 U/L Creatine Kinase MB 3.3 NG/ML Troponin I 0.03 NG/ML B-Type Natriuretic Peptide 3058 PG/ML Total Protein 7.4 GM/DL Albumin 3.4 GM/DL Thyroid Stimulating Hormone 5.160 uIU/ML 3rd Gen Blood Gas Puncture Site RT RADIAL Blood Gas Patient Temperature 98.6 Blood Gas HCO3 23 mmol/L Blood Gas Base Excess -3.3 mmol/L Blood Gas Oxygen Saturation 96 % Arterial Blood pH 7.27 Arterial Blood Partial 51 mmHg Pressure CO2 Arterial Blood Partial 239 mmHG Pressure O2 Arterial Blood Oxygen Content 23.5 Vol % Arterial Blood 2.0 % Carboxyhemoglobin Arterial Blood Methemoglobin 1.6 % Blood Gas Hemoglobin 17.2 G/DL Oxygen Delivery Device NRB Blood Gas Liter Flow 15 L/M Blood Gas Inspired Oxygen 100 % Lactic Acid Level 1.9 mmol/L Urine Color DARK-YELLOW Urine Turbidity HAZY Urine pH 5.0 Urine Specific [place] 1.016 Urine Protein 30 mg/dL Urine Glucose (UA) NEG mg/dL Urine Ketones NEG mg/dL Urine Occult Blood LARGE Urine Nitrite NEG Urine Bilirubin NEG Urine Urobilinogen 2.0 MG/DL Urine Leukocyte Esterase LARGE Urine RBC 87 /hpf Urine WBC 107 /hpf Urine WBC Clumps FEW Urine Bacteria MANY /hpf Urine Hyaline Casts 39 /lpf Urine Mucus MANY /lpf Microscopic Urinalysis Comment CATH-CULTURE IND Test 09/19/16 09/19/16 09/20/16 17:55 19:05 03:18 Blood Gas Puncture Site LT RADIAL Blood Gas Patient Temperature 98.6 Blood Gas HCO3 22 mmol/L Blood Gas Base Excess -3.1 mmol/L Blood Gas Oxygen Saturation 91 % Arterial Blood pH 7.34 Arterial Blood Partial 41 mmHg Pressure CO2 Arterial Blood Partial 72 mmHg Pressure O2 Arterial Blood Oxygen Content 21.3 Vol % Arterial Blood 1.6 % Carboxyhemoglobin Arterial Blood Methemoglobin 0.8 % Blood Gas Hemoglobin 16.7 G/DL Oxygen Delivery Device [id number] Blood Gas Inspired Oxygen 40 % Prothrombin Time 48.7 SEC 20.2 SEC Prothromb Time International 4.1 RATIO 1.8 RATIO Ratio White Blood Count 19.2 TH/MM3 Red Blood Count 4.92 MIL/MM3 Hemoglobin 15.7 GM/DL Hematocrit 47.8 % Mean Corpuscular Volume 97.2 FL Mean Corpuscular Hemoglobin 31.9 PG Mean Corpuscular Hemoglobin 32.8 % Concent Red Cell Distribution Width 16.5 % Platelet Count 225 TH/MM3 Mean Platelet Volume 8.8 FL Neutrophils (%) (Auto) 60.1 % Lymphocytes (%) (Auto) 38.6 % Monocytes (%) (Auto) 1.2 % Eosinophils (%) (Auto) 0.0 % Basophils (%) (Auto) 0.1 % Neutrophils # (Auto) 11.5 TH/MM3 Lymphocytes # (Auto) 7.4 TH/MM3 Monocytes # (Auto) 0.2 TH/MM3 Eosinophils # (Auto) 0.0 TH/MM3 Basophils # (Auto) 0.0 TH/MM3 CBC Comment AUTO DIFF Differential Total Cells 100 Counted Neutrophils % (Manual) 59 % Band Neutrophils % 4 % Lymphocytes % 36 % Monocytes % 1 % Neutrophils # (Manual) 12.1 TH/MM3 Differential Comment FINAL DIFF MANUAL Smudge Cells PRESENT Platelet Estimate NORMAL Platelet Morphology Comment NORMAL Red Cell Morphology Comment NORMAL Sodium Level 147 MEQ/L Potassium Level 4.4 MEQ/L Chloride Level 110 MEQ/L Carbon Dioxide Level 23.6 MEQ/L Anion Gap 13 MEQ/L Blood Urea Nitrogen 75 MG/DL Creatinine 2.33 MG/DL Estimat Glomerular Filtration 27 ML/MIN Rate Random Glucose 85 MG/DL Calcium Level 8.3 MG/DL Total Bilirubin 1.2 MG/DL Aspartate Amino Transf 17 U/L (AST/SGOT) Alanine Aminotransferase 14 U/L (ALT/SGPT) Alkaline Phosphatase 110 U/L Total Protein 6.0 GM/DL Albumin 2.9 GM/DL Imaging Last Impressions Chest X-Ray 09/19/16 1157 Signed Impressions: Service Date/Time: Monday, September 19, 2016 12:04 - CONCLUSION: Right perihilar airspace disease likely pneumonia. Clayton Contreras MD Renal Ultrasound 09/19/16 0000 Signed Impressions: Service Date/Time: Monday, September 19, 2016 14:57 - CONCLUSION: 1. Right sided renal cysts. 2. Nonobstructing calculus lower pole left kidney as described above. 3. Ascites and right pleural effusion. Clayton Contreras MD Head CT 09/19/16 0000 Signed Impressions: Service Date/Time: Monday, September 19, 2016 15:48 - CONCLUSION: 1. Remote lacunar infarcts. 2. No acute intracranial abnormality. Clayton Contreras MD Objective Remarks GENERAL: Patient is 86 yo lying in be din mild resp distress. SKIN: Warm and dry. HEAD: Normocephalic. EYES: No scleral icterus. No injection or drainage. NECK: Supple, trachea midline. No JVD or lymphadenopathy. CARDIOVASCULAR: Regular rate and rhythm without murmurs, gallops, or rubs. RESPIRATORY: Breath sounds equal bilaterally. No accessory muscle use. GASTROINTESTINAL: Abdomen soft, non-tender, nondistended. MUSCULOSKELETAL: No cyanosis, or edema. Neuro: Awake and alert A/P Assessment and Plan 1. Acute hypercapnic respiratory failure. 2. Right-sided pneumonia. 3. CHF decompensation. 4. Cardiomyopathy with EF of 20-25% 5. Acute on chronic kidney disease. 6. Coagulopathy secondary to Coumadin toxicity. 7. Hypothyroidism. 8. Atrial fibrillation. 9. Peripheral vascular disease. 10.History of diabetes mellitus. 11.Coronary artery disease. 12 UTI PLAN Neuro: Monitor neuro status and avoid sedatives. CT brain: No acute process Pulm: Continue to wean down oxygen as tolerated and maintain sats > 92%. Bronchodilators, NIPPV p.r.n. for respiratory distress. Check CXR On p.o. prednisone at home, continue with Solu-Medrol 40 mg IV q.8h. CV: Monitor HR and BP and maintain MAP >65 mmHg. Lactic acid level: 1.9. Resume Coreg 3.125mg BID Echo showed EF 20-25%, diffuse hypokinesis, mod-severe pulm HTN with PAP 63mmHg Cards on case- discussed with Dr. Santos. : Monitor renal function, I's and O's, and avoid nephrotoxins. Renal- Dr. Cobos. Cr: 2.33 today from 2.42 Renal US: Right sided renal cysts. Nonobstructing calculus lower pole left kidney. On Allopurinol for Gout. GI: Start PO heart healthy diet ID: Continue with abx(Rocephin and azithromycin) and monitor for signs of infection(fever and WBC). Follow up on cultures ( blood, urine) check strep pneumonia and Legionella urinary Ag, sputum cx Endo: SSI with Accu-Chek q.6h. for glycemic control Continue Synthroid 25mcg daily..TSH 5.1 08/19 Heme Monitor CBC and coags .Given vitamin-K 10 mg IV push x1 in the ED for INR 14.5 Repeat INR 1.8 today GI prophylaxis with Protonix 40 mg daily. DVT prophylaxis with SCDs/resume coumadin Level 3 Carley Mora MD Sep 20, 2016 08:02
--- NOTE | 2016-09-20 08:26 | MB ---
cc: MAT SANTOS DATE OF CONSULTATION 09/20/2016 INDICATION Congestive heart failure. HISTORY OF PRESENT ILLNESS This is an 86-year-old gentleman who follows with a social work therapist over at the [facility]. He has been seen in the past by Dr. Dallas and Dr. Camacho back in 2015. 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 He presented to the emergency department with progressive symptoms of shortness of breath in addition to abdominal distension and constipation. His initial BNP was elevated in addition to his creatinine and white blood cell count. In the ER showed some likely pneumonia. He did receive 40 of Lasix in the emergency department. He has no significant edema. He does not state that he has had any weight gain. He does watch his fluid intake and salt intake. His INR was also greater than 14.5. We are consulted for further recommendations given his continued shortness of breath. PAST MEDICAL HISTORY 1. Congestive heart failure. 2. Cardiomyopathy, nonischemic. EF 20%. 3. Atrial fibrillation. 4. Peripheral vascular disease. 5. Diabetes. 6. Mild coronary disease. 7. Chronic kidney disease. 8. COPD. 9. Hypothyroidism FAMILY HISTORY Denies any family history of early cardiac disease or sudden cardiac . SOCIAL HISTORY Quit smoking about 12 years ago. Denies any alcohol or drug use. ALLERGIES SIMVASTATIN. MEDICATIONS 1. Prednisone. 2. Lisinopril. 3. Warfarin. 4. Allopurinol. 5. Coreg. 6. Pravastatin. 7. Lasix. 8. Hydrochlorothiazide. 9. Synthroid. 10. Vitamin D. REVIEW OF SYSTEMS A 12-point review of some was performed, negative unless otherwise noted in the History of Present Illness. PHYSICAL EXAMINATION VITAL SIGNS: Temperature is 97, pulse 67, blood pressure 118/55 mmHg. GENERAL: Alert and oriented x 3. Mild distress. HEENT: Exam shows pupils reactive to light and accommodation. NECK: Jugular veins are mildly distended. No carotid bruits. LUNGS: Clear to auscultation bilaterally with coarse rhonchi throughout. Decreased breath sounds throughout. Mild end-expiratory wheeze. CARDIOVASCULAR EXAM: Regular rate and rhythm, 1/6 systolic murmur. ABDOMINAL EXAM: Distended. EXTREMITIES: No clubbing, cyanosis or edema. Good peripheral pulses. NEUROLOGIC: Cranial nerves intact. Motor and sensory grossly intact. LABORATORY DATA WBC 19.2, hemoglobin 15.7, platelet count 255. INR is 1.8. Sodium 147, potassium 4.4, chloride 110, BUN 75, creatinine is 2.33. TSH 5.16. ASSESSMENT 1. Shortness of breath. 2. Cardiomyopathy, not ischemic. 3. Congestive heart failure. 4. COPD. PLAN The patient's symptoms appear to be multifactorial. He does have a history of known cardiomyopathy. His echocardiogram here shows ejection fraction of 20%. He has mild to moderate valvular heart disease in addition to moderate to severe pulmonary hypertension. I think his more recent decompensation is likely secondary to some infectious process. WBC count is elevated in addition to possible infiltrate. He does not know of any significant weight gain or edema. We are going to be limited in terms of any significant diuresis given his poor renal function. His last heart catheterization in 2014 shows only mild coronary disease. He already has a defibrillator in place. He is on antibiotics for now. We will see if that helps with some of his symptoms. I would not recommend FABIAN inhibitor or hydrochlorothiazide which was in his home regimen given his renal function. Nephrology has been consulted. If we can attempt gentle diuresis, that would be helpful. Also need treatment for his TSH. No beta mirtha given his relative hypotension for now. Mat Santos MD SM/SSB /7:49 AM /8:01 AM
[2016-09-20] MEDS: PANTOPRAZOLE SODIUM 40 MG VIAL IV SCH (09:09)
[2016-09-20] MEDS: CARVEDILOL 3.125 MG TAB PO SCH ×2 (09:12→23:16)
[2016-09-20] MEDS: CHOLECALCIFEROL (VIT D3) 1000 UNIT TAB PO SCH (09:12)
[2016-09-20] MEDS: ALLOPURINOL 100 MG TAB PO SCH (09:12)
--- NOTE | 2016-09-20 09:18 | MB ---
cc: DEMIAN NICKERSON MD DATE OF CONSULTATION 09/19/16 REASON FOR CONSULTATION Elevated BUN and creatinine for evaluation. HISTORY OF PRESENT ILLNESS This is an 86-year-old male with past medical history of atrial fibrillation, ischemic heart disease, congestive heart failure, chronic obstructive pulmonary disease, with low ejection fraction of 20%, chronic kidney disease who came to the hospital with complaint of worsening shortness of breath. I was called to see the patient because of elevated BUN and creatinine. The patient has BUN of 65 and creatinine of 2.4 on presentation. Previously he had creatinine of 1.2-1.4 most of the time in the past and the patient is quite lethargic and has been on BiPAP and not able to give any history. He was seen by Dr. 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 Most of the history was taken from the patient's chart according to which she came in here because of worsening shortness of breath. He has this history of congestive heart failure. There was no history of nausea or vomiting or abdominal pain. He did not have any chest pain. PAST MEDICAL HISTORY 1. Ischemic heart disease, 2. Atrial fibrillation, 3. Congestive heart failure, 4. Peripheral vascular disease, 5. Diabetes mellitus, 6. Chronic kidney disease, 7. Chronic obstructive pulmonary disease, 8. Hypothyroidism, 9. History of chronic lymphocytic anemia REVIEW OF SYSTEMS Cannot be taken since the patient is not able to give any history. SOCIAL HISTORY The patient has past history of smoking, stopped 12 years ago with a past history of alcoholism. FAMILY HISTORY Noncontributory. ALLERGIES SIMVASTATIN MEDICATIONS Currently - 1. Protonix 40 mg IV daily. 2. Synthroid 25 mcg once a day. 3. DuoNeb nebulizer 4. Azithromycin 500 mg q.24 h. 5. Ceftriaxone 1 gram 24-hour. 6. Insulin sliding scale 7. Solu-Medrol 40 mg q. 8-hour 8. DuoNeb nebulizer PHYSICAL EXAMINATION GENERAL: The patient is quite lethargic on BiPap not responding to verbal commands and in moderate respiratory distress VITAL SIGNS: Last blood pressure 109/62 temperature 97.5, oxygen saturation on BiPAP as 89-90%. HEENT: Pupils are constricted. Nonicteric sclerae, conjunctivae normal. NECK: Supple. JVD is slightly elevated. LUNGS: The patient has bilateral decreased air entry with few basilar rales and scattered wheezing. HEART: S1, S2 regular rhythm. ABDOMEN: Distended, soft lax. There is no tenderness. EXTREMITIES: He has 1+ edema LABORATORY DATA WBC count is 14.5, hemoglobin 17.5, platelet count of 61. Sodium 136. Potassium 4.5, chloride 95, bicarb 33.5, BUN 66, creatinine 1.46. This is initial one, the repeat one is showing sodium is 143. Potassium 5.1, chloride 103, bicarb 28.1, BUN 65, creatinine 2.4. Calcium 8.8, magnesium 2.4, total bilirubin is 1.3, AST, ALT normal, alkaline phosphatase 129, BNP is 3058, total protein 7.4. Albumin is 3.4. INR is greater than 14.5. Urinalysis showing large leukocyte esterase, RBC 87, WBC 107. IMAGING STUDIES The patient had chest x-ray done which shows right perihilar air space disease, most likely pneumonia. CT scan of the brain was done which was showing a remote lacunar infarct. ASSESSMENT/PLAN Ultrasound of the kidney was also done which shows that he has both normal size kidneys, right side a renal cyst, non-obstructing calculi in the left lower part of the kidney. ASSESSMENT/PLAN 1. Pneumonia and respiratory failure 2. Acute kidney injury 3. Congestive heart failure with decompensation 4. Coagulopathy with elevated INR. 5. Hypothyroidism 6. Atrial fibrillation RECOMMENDATION The patient will be started on antibiotic. BP is on the lower side right now. The patient has history of low ejection fraction. A repeat echo was done. I will follow the urine output and give Lasix as needed and follow the BUN and creatinine. If he does not respond very well then he possibly will need dialysis. Monitor the urine output and the BUN and creatinine closely. Avoid any nephrotoxins. Thank you for the consultation and I will follow the patient while he is in the hospital. MD SOPHIA De La Fuente/ /7:32 PM /9:07 AM NELL
--- NOTE | 2016-09-20 09:44 | RADRPT ---
EXAM DATE/TIME: 09/20/2016 09:10 [facility] COMPARISON: CHEST SINGLE AP, September 19, 2016, 12:04. INDICATIONS : Shortness of breath. MEDICAL HISTORY : Hypertension. Congestive heart failure SURGICAL HISTORY : Pacemaker. ENCOUNTER: Subsequent ACUITY: 2 days PAIN SCORE: 0/10 LOCATION: Bilateral chest FINDINGS: Pacemaker device is noted with control pack over the left chest. Bibasilar infiltrates and effusions are present. Accounting for rotation, cardiomediastinal contours are grossly stable. CONCLUSION: Worsening aeration Toby Leal MD on September 20, 2016 at 9:41 Board Certified Radiologist. This report was verified electronically.
[2016-09-20] MEDS ORDERED: PNEUMOCOCCAL POLYVALENT INJ 25 MCG/0.5 ML SYR IM ONE (10:00)
[2016-09-20] MEDS: AZITHROMYCIN INJ 500 MG in SODIUM CHLOR 0.9% 250 ML INJ 250 ML IV SCH (13:40)
[2016-09-20] MEDS ORDERED: cefTRIAXone INJ 1,000 MG in SODIUM CHLORIDE 0.9% INJ 100 ML IV SCH (14:00)
[2016-09-20] MEDS ORDERED: BUMETANIDE INJ 1 MG/4 ML VIAL IV PUSH ONE (15:15)
--- NOTE | 2016-09-20 19:05 | HHI.NPPN ---
Subjective History of Present Illness 86-year-old male with past medical history of atrial fibrillation, ischemic heart disease, congestive heart failure, chronic obstructive pulmonary disease, with low ejection fraction of 20%, chronic kidney disease who came to the hospital with complaint of worsening shortness of breath. I was called to see the patient because of elevated BUN and creatinine. The patient has BUN of 65 and creatinine of 2.4 on presentation. Previously he had creatinine of 1.2-1.4 most of the time in the past. Additional Remarks Patient is alert, on BIPAP, in moderate resp. distress. Review of Systems General Constitutional: Fatigue Respiratory Lungs: SOB, Sputum, Wheeze Cardiovascular Cardiac: Edema, GRACIA Objective Data Data 09/19/16 09/20/16 19:00 07:00 Intake Total 60 ml Output Total 320 ml Balance -260 ml Intake Oral 60 ml IV Total 0 ml Output Urine Total 320 ml # Bowel Movements 1 Vital Signs Date Time Temp Pulse Resp B/P Pulse Ox O2 Delivery O2 Flow Rate FiO2 09/20/16 18:00 87 09/20/16 16:00 80 09/20/16 16:00 97.7 74 30 106/62 94 09/20/16 14:31 94 50 09/20/16 14:00 82 09/20/16 12:00 97.9 69 34 105/55 85 09/20/16 12:00 76 09/20/16 12:00 88 Nasal Cannula 6.00 09/20/16 10:00 96 09/20/16 08:30 91 8.00 09/20/16 08:00 71 09/20/16 08:00 97.8 71 35 122/59 94 09/20/16 06:00 67 09/20/16 04:20 96 40 09/20/16 04:00 97.8 68 18 118/55 96 09/20/16 04:00 68 09/20/16 02:00 70 09/20/16 01:10 95 50 09/20/16 00:00 97.7 67 25 117/59 95 09/20/16 00:00 67 09/19/16 22:00 62 09/19/16 20:00 63 09/19/16 20:00 97.8 63 9 121/60 95 09/19/16 19:40 94 40 -: 09/20/16 0318 09/20/16 0318 Microbiology 09/20/16 Gram Stain - Final, Resulted 09/20/16 Sputum Culture, Resulted Pending 09/20/16 Legionella Antigen - Final, Complete PRESUMPTIVE NEGATIVE FOR LEGIONELLA P... 09/20/16 Streptococcus pneumoniae Antigen (M - Final, Complete PRESUMPTIVE NEGATIVE FOR STREPTOCOCCU... Physical Exam General Appearance: Comfortable, Anxious Eyes Eye Exam: Pupils Equal Throat Throat Exam: Oral Mucosa [place] & Moist Neck Neck Exam: Neck Supple Pulmonary Resp Exam: Crackles, Rhonchi, Decreased Bases, Diminished Breath Sounds Cardiology CV Exam: Regular, Normal Sinus Rhythm Gastrointestinal/Abdomen GI Exam: Soft, Non-Tender Extremeties Extremities Exam: Trace Edema Neurologic Neuro Exam: Alert, Awake, Oriented Psychiatric Psych Exam: Appropriate Responses Assessment/Plan Assessment Summary: MIREILLE/Acute Renal Failure, Fluid/Volume Overload, CHF, CKD Stage III Problem List: (1) CHF (congestive heart failure) (2) Elevated INR (3) Acute hypoxemic respiratory failure (4) A-fib (5) Ltdtk-[id number]-dobquvs kidney injury Plan Patient has stable Creatinine. Urine out put is adequate. Off diuretics, got one dose of Bumex. Follow urine out put and BMP. Wean off BIPAP as tolerated. Continue antibiotics. Echo results noted, cardiology following. Problem Qualifiers (1) A-fib: Qualified Code: I48.2 - Chronic atrial fibrillation Tenzin Cobos MD Sep 20, 2016 19:05
--- NOTE | 2016-09-20 22:38 | EKG ---
Date Performed: 09/19/2016 Time Performed: 12:00:19 PTAGE: 86 years EKG: ATRIAL FIBRILLATION VS SR W PACS LOW QRS VOLTAGE IN EXTREMITY LEADS ANTEROLATERAL MYOCARDIA L INFARCTION ABNORMAL ECG Compared to the PREVIOUS TRACING , reg SR no longer present DOCTOR: Reuben Zelaya Interpretating Date/Time 09/20/2016 22:36:56
[2016-09-21] VITALS (18 sets, daily range): BP systolic 85–135; BP diastolic 53–85; PULSE 74–91; RESP 12–25; TEMP 97.5–98.5; O2SAT 90–97
[2016-09-21] MEDS: INSULIN NovoLIN REGULAR SUPPLEMENTAL SCALE SQ SCH ×3 (03:00→20:00)
[2016-09-21] MEDS: CHLORHEXIDINE GLUCONATE 2 % 1 PACK (2 CLOTHS) TOP SCH (04:00)
[2016-09-21] MEDS: RESP: ALBUTEROL 2.5 MG/IPRATROPIUM 0.5 MG NEB (SCH) INH ×6 (04:37→23:58)
--- NOTE | 2016-09-21 05:39 | RADRPT ---
EXAM DATE/TIME: 09/21/2016 03:43 [facility] COMPARISON: CHEST SINGLE AP, September 20, 2016, 9:10. INDICATIONS : Shortness of breath, possible pulmonary disease. MEDICAL HISTORY : Hypertension. Congestive heart failure. SURGICAL HISTORY : Pacemaker. ENCOUNTER: Subsequent ACUITY: 3 days PAIN SCORE: 0/10 LOCATION: Bilateral chest FINDINGS: There is a pacing cysts a.c. device in place from the left subclavian approach. The heart size is upp er limits of normal. There is a lucency at the mid and lower right chest. There some increased densit y at the left base. Some degree of right effusion needs to be suspected. CONCLUSION: Bibasilar areas of consolidation or atelectasis being worse on the right. Some degree of effusion is likely present on the right. Toby Alonso MD on September 21, 2016 at 5:37 Board Certified Radiologist. This report was verified electronically.
[2016-09-21] MEDS: methylPREDNISolone SOD SUCC 40 MG/1 ML VIAL IV PUSH SCH ×3 (06:04→21:44)
[2016-09-21] MEDS: LEVOTHYROXINE SODIUM 25 MCG TAB PO SCH (06:04)
--- NOTE | 2016-09-21 08:19 | PD.CARD.PN ---
Subjective Subjective Remarks breathing improving (Josef Smith) Objective Vital Signs / I&O Vital Signs Date Time Temp Pulse Resp B/P Pulse Ox O2 Delivery O2 Flow Rate FiO2 09/21/16 08:06 90 Nasal Cannula 6.00 09/21/16 06:20 91 Nasal Cannula 5.00 09/21/16 06:00 86 09/21/16 04:37 92 50 09/21/16 04:00 76 09/21/16 04:00 98.0 76 12 112/66 92 09/21/16 02:00 84 09/21/16 01:55 96 40 09/21/16 00:42 96 40 09/21/16 00:42 Bi-Pap 09/21/16 00:00 97.9 83 16 103/62 92 09/21/16 00:00 83 09/20/16 22:00 85 09/20/16 20:00 88 09/20/16 20:00 98.1 88 22 106/71 93 09/20/16 20:00 Nasal Cannula 4.00 09/20/16 19:41 93 Nasal Cannula 6.00 09/20/16 18:00 87 09/20/16 16:00 80 09/20/16 16:00 97.7 74 30 106/62 94 09/20/16 14:31 94 50 09/20/16 14:00 82 09/20/16 12:00 97.9 69 34 105/55 85 09/20/16 12:00 76 09/20/16 12:00 88 Nasal Cannula 6.00 09/20/16 10:00 96 09/20/16 08:30 91 8.00 I/O 09/20/16 09/20/16 09/20/16 09/21/16 09/21/16 09/21/16 07:00 15:00 23:00 07:00 15:00 23:00 Intake Total 60 ml 600 ml Output Total 320 ml 150 ml 250 ml 250 ml Balance -260 ml 450 ml -250 ml -250 ml Intake Oral 60 ml 600 ml IV Total 0 ml Output Urine Total 320 ml 150 ml 250 ml 250 ml # Bowel Movements 1 Physical Exam GENERAL: Well-nourished, well-developed patient in no apparent distress. NECK: No JVD. No carotid bruit. CARDIOVASCULAR: Regular rate and rhythm. S1/S2 no murmur, rub, or gallop. RESPIRATORY: No accessory muscle use. diminished to auscultation. Breath sounds equal bilaterally. GASTROINTESTINAL: Abdomen soft, non-tender, nondistended. MUSCULOSKELETAL: Extremities without clubbing, cyanosis, or edema. Laboratory Laboratory Tests Test 09/20/16 17:50 Nasal Screen MRSA (PCR) NEGATIVE (Josef Smith) Assessment and Plan Problem List: (1) A-fib (2) Ischemic cardiomyopathy Assessment and Plan a-fib - rate controlled cardiomyopathy - rylee BB, maximized with SBP 109 mmHg, no FABIAN-I for now (Josef Smith) Assessment and Plan SOB - multifactorial. pulmonary > cardiac . cardiomyopathy with EF 20%. I/O even. diuretic per neprhrology. try to keep slightly negative. monitor Cr. afib rate controlled. (Mat Santos MD) Josef Smith Sep 21, 2016 08:19 Mat Santos MD Sep 21, 2016 09:49
[2016-09-21] MEDS: CHOLECALCIFEROL (VIT D3) 1000 UNIT TAB PO SCH (09:28)
[2016-09-21] MEDS: PANTOPRAZOLE SODIUM 40 MG VIAL IV SCH (09:28)
[2016-09-21] MEDS: CARVEDILOL 3.125 MG TAB PO SCH ×2 (09:29→21:44)
[2016-09-21] MEDS: ALLOPURINOL 100 MG TAB PO SCH (09:29)
--- NOTE | 2016-09-21 10:50 | HHI.NPPN ---
Subjective History of Present Illness 86-year-old male with past medical history of atrial fibrillation, ischemic heart disease, congestive heart failure, chronic obstructive pulmonary disease, with low ejection fraction of 20%, chronic kidney disease who came to the hospital with complaint of worsening shortness of breath. I was called to see the patient because of elevated BUN and creatinine. The patient has BUN of 65 and creatinine of 2.4 on presentation. Previously he had creatinine of 1.2-1.4 most of the time in the past. Additional Remarks Patient is alert, now with nasal cannula, feeling better. Review of Systems General Constitutional: Fatigue Respiratory Lungs: SOB, Sputum, Wheeze Cardiovascular Cardiac: Edema, GRACIA Objective Data Data 09/20/16 09/21/16 19:00 07:00 Intake Total 600 ml Output Total 150 ml 500 ml Balance 450 ml -500 ml Intake Oral 600 ml Output Urine Total 150 ml 500 ml Vital Signs Date Time Temp Pulse Resp B/P Pulse Ox O2 Delivery O2 Flow Rate FiO2 09/21/16 08:06 90 Nasal Cannula 6.00 09/21/16 06:20 91 Nasal Cannula 5.00 09/21/16 06:00 86 09/21/16 04:37 92 50 09/21/16 04:00 76 09/21/16 04:00 98.0 76 12 112/66 92 09/21/16 02:00 84 09/21/16 01:55 96 40 09/21/16 00:42 96 40 09/21/16 00:42 Bi-Pap 09/21/16 00:00 97.9 83 16 103/62 92 09/21/16 00:00 83 09/20/16 22:00 85 09/20/16 20:00 88 09/20/16 20:00 98.1 88 22 106/71 93 09/20/16 20:00 Nasal Cannula 4.00 09/20/16 19:41 93 Nasal Cannula 6.00 09/20/16 18:00 87 09/20/16 16:00 80 09/20/16 16:00 97.7 74 30 106/62 94 09/20/16 14:31 94 50 09/20/16 14:00 82 09/20/16 12:00 97.9 69 34 105/55 85 09/20/16 12:00 76 09/20/16 12:00 88 Nasal Cannula 6.00 -: 09/20/16 0318 09/20/16 0318 Microbiology 09/20/16 Gram Stain - Final, Resulted 09/20/16 Sputum Culture, Resulted Pending 09/20/16 Legionella Antigen - Final, Complete PRESUMPTIVE NEGATIVE FOR LEGIONELLA P... 09/20/16 Streptococcus pneumoniae Antigen (M - Final, Complete PRESUMPTIVE NEGATIVE FOR STREPTOCOCCU... Physical Exam General Appearance: No Acute Distress, Comfortable Eyes Eye Exam: Pupils Equal Throat Throat Exam: Oral Mucosa [place] & Moist Neck Neck Exam: Neck Supple Pulmonary Resp Exam: Crackles, Rhonchi, Decreased Bases, Diminished Breath Sounds Cardiology CV Exam: Regular, Normal Sinus Rhythm Gastrointestinal/Abdomen GI Exam: Soft, Non-Tender Extremeties Extremities Exam: Trace Edema Neurologic Neuro Exam: Alert, Awake, Oriented Psychiatric Psych Exam: Appropriate Responses Assessment/Plan Assessment Summary: [place]/Acute Renal Failure, Fluid/Volume Overload, CHF, CKD Stage III Problem List: (1) CHF (congestive heart failure) (2) Elevated INR (3) Acute hypoxemic respiratory failure (4) A-fib (5) [id number] kidney injury Plan No new BMP today. Urine out put is adequate. Off diuretics, got one dose of Bumex yesterday. Follow urine out put and BMP. Continue antibiotics. Echo results noted, cardiology following. Add Bumex, and follow BUN and Creatinine. Problem Qualifiers (1) CHF (congestive heart failure): (2) A-fib: Qualified Code: I48.2 - Chronic atrial fibrillation Tenzin Cobos MD Sep 21, 2016 10:50
[2016-09-21] MEDS ORDERED: BUMETANIDE INJ 1 MG/4 ML VIAL IV PUSH ONE (11:00)
[2016-09-21] MEDS: AZITHROMYCIN INJ 500 MG in SODIUM CHLOR 0.9% 250 ML INJ 250 ML IV SCH (13:56)
--- NOTE | 2016-09-21 14:35 | HHI.CCPN ---
Subjective Remarks/Hospital Course The patient is an 86-year-old male with past medical history of chronic atrial fibrillation on Coumadin, CHF, COPD, peripheral vascular disease, diabetes mellitus, chronic kidney disease, cardiomyopathy with EF of 20%, who presented to the ED for worsening shortness of breath for the past several days. He denies any associated symptoms of chest pain, cough or any constitutional symptoms. In addition, the patient denies any nausea, vomiting or abdominal pain. On arrival to the ED the patient was hypoxic with O2 saturation in the 80s. He was subsequently placed on a non-rebreather mask. An ABG was obtained which showed a pH of 7.27, CO2 51, PAO2 239, bicarb of 23 and saturation 96%. His laboratory data was significant for acute kidney injury with creatinine level of 2.42 and BNP of 3058. Also, he was found to have leukocytosis with a WBC of 14.5 and was coagulopathic with an INR greater than 14.5. His chest x- ray in the ER showed right perihilar airspace disease, likely pneumonia. He is in the process of receiving vitamin-K 10 mg IV. In addition, the patient received Rocephin, azithromycin and Lasix 40 mg IV push. The patient is on prednisone at home. 09/20 Patient was on BIPAP 15/5 with 50% FIO2 this morning. Awake and alert. Afebrile WBC increased 19 from 14.5 yesterday. 09/21: Off BiPAP on VM. CXR R> infiltrate and effusion. Bedside US large R effusion. Plan for thoracentesis Objective Vital Signs Date Time Temp Pulse Resp B/P Pulse Ox O2 Delivery O2 Flow Rate FiO2 09/21/16 08:06 90 Nasal Cannula 6.00 09/21/16 06:00 86 09/21/16 04:37 50 09/21/16 04:00 98.0 12 112/66 Intake and Output 09/20/16 09/20/16 09/21/16 08:00 16:00 00:00 Intake Total 60 ml 600 ml Output Total 320 ml 150 ml 250 ml Balance -260 ml 450 ml -250 ml Result Diagram: 09/20/168 09/20/168 Other Results Microbiology Date/Time Procedure Status Source Growth 09/19/16 14:45 Urine Culture - Final Complete Urine Clean Catch Klebsiella Pneumoniae 09/20/16 14:15 Legionella Antigen - Final Complete Urine Catheterized Urine PRESUMPTIVE NEGATIVE FOR LEGIONELLA P... 09/20/16 14:15 Streptococcus pneumoniae Antigen (M - Final Complete Urine Catheterized Urine PRESUMPTIVE NEGATIVE FOR STREPTOCOCCU... Imaging Last Impressions Chest X-Ray 09/19/16 1157 Signed Impressions: Service Date/Time: Monday, September 19, 2016 12:04 - CONCLUSION: Right perihilar airspace disease likely pneumonia. Clayton Contreras MD Renal Ultrasound 09/19/16 0000 Signed Impressions: Service Date/Time: Monday, September 19, 2016 14:57 - CONCLUSION: 1. Right sided renal cysts. 2. Nonobstructing calculus lower pole left kidney as described above. 3. Ascites and right pleural effusion. Clayton Contreras MD Head CT 09/19/16 0000 Signed Impressions: Service Date/Time: Monday, September 19, 2016 15:48 - CONCLUSION: 1. Remote lacunar infarcts. 2. No acute intracranial abnormality. Clayton Contreras MD Objective Remarks GENERAL: Patient is 86 yo lying in be in mild resp distress. SKIN: Warm and dry. HEAD: Normocephalic. EYES: No scleral icterus. No injection or drainage. NECK: Supple, trachea midline. No JVD or lymphadenopathy. CARDIOVASCULAR: Regular rate and rhythm without murmurs, gallops, or rubs. RESPIRATORY: Breath sounds equal bilaterally. No accessory muscle use. Moderate to large R effusion GASTROINTESTINAL: Abdomen soft, non-tender, nondistended. MUSCULOSKELETAL: No cyanosis, or edema. Neuro: Awake and alert. No FND A/P Assessment and Plan 1. Acute hypercapnic respiratory failure. 2. Right-sided pneumonia. Moderate to large R pleural effusion 3. CHF decompensation. 4. Cardiomyopathy with EF of 20-25% 5. Acute on chronic kidney disease. 6. Coagulopathy secondary to Coumadin toxicity. 7. Hypothyroidism. 8. Atrial fibrillation. 9. Peripheral vascular disease. 10.History of diabetes mellitus. 11.Coronary artery disease. 12 UTI PLAN Neuro: Monitor neuro status and avoid sedatives. CT brain: No acute process Pulm: Continue to wean down oxygen as tolerated and maintain sats > 90%. Bronchodilators, NIPPV p.r.n. for respiratory distress. On p.o. prednisone at home, continue with Solu-Medrol 40 mg IV q.8h. Plan for diagnostic and therapeutic thoracentesis CV: Monitor HR and BP and maintain MAP >65 mmHg. Lactic acid level: 1.9. Coreg 3.125mg BID Echo showed EF 20-25%, diffuse hypokinesis, mod-severe pulm HTN with PAP 63mmHg Cards on case- discussed with Dr. Santos. : Monitor renal function, I's and O's, and avoid nephrotoxins. Renal- Dr. Cobos. Cr: 2.33 today from 2.42 Renal US: Right sided renal cysts. Nonobstructing calculus lower pole left kidney. On Allopurinol for Gout. GI: Start PO heart healthy diet ID: Continue with abx(Rocephin and azithromycin) and monitor for signs of infection(fever and WBC). Follow up on cultures ( blood, urine) check strep pneumonia and Legionella urinary Ag, sputum cx Endo: SSI with Accu-Chek q.6h. for glycemic control Continue Synthroid 25mcg daily..TSH 5.1 08/19 Heme: Monitor CBC and coags .Given vitamin-K 10 mg IV push x1 in the ED for INR 14.5 Repeat INR 1.8 09/20 GI prophylaxis with Protonix 40 mg daily. DVT prophylaxis with SCDs/resume Coumadin in 24 hours after thoracentesis Level 3 Nikolas Luis MD Sep 21, 2016 14:35
--- NOTE | 2016-09-21 15:05 | PD.PROCEDR ---
Procedure Note Procedure Procedure Notes: Thoracentesis Indication: Large right pleural effusion A time-out was completed verifying correct patient, procedure, site, positioning , and equipment if applicable. The patient's right side was prepped and draped in a sterile manner after the appropriate infiltration level was confirmed by ultrasound. 1% lidocaine was used anesthetize the surrounding skin. A 10-blade scalpel used to make the incision. The thoracentesis Angio cath was then introduced without difficulty and needle was removed. Sample pleural fluid was collected for further lab study. Catheter was connected to Vacutainer bottle and approximately 1500 ML of straw colored clear pleural fluid was drained. A post-procedure chest x-ray was ordered and the fluid will be sent for several studies. Estimated Blood Loss: <1 ml The patient tolerated the procedure well and there were no immediate complications. Nikolas Luis MD Sep 21, 2016 15:05
--- NOTE | 2016-09-21 15:30 | RADRPT ---
EXAM DATE/TIME: 09/21/2016 15:04 [facility] COMPARISON: CHEST SINGLE AP, September 21, 2016, 3:43. INDICATIONS : Post thoracentesis MEDICAL HISTORY : Hypertension. Congestive heart failure SURGICAL HISTORY : Pacemaker. ENCOUNTER: Initial ACUITY: 3 days PAIN SCORE: 0/10 LOCATION: chest FINDINGS: Portable AP views of the chest demonstrate a normal-sized cardiac silhouette with calcification of th e aorta. Left chest wall cardiac pacing device/AICD is present. The right pleural effusion has resolv ed following thoracentesis. No pneumothorax is visualized. There is a stable small left basilar pleur al-parenchymal opacity. CONCLUSION: 1. No pneumothorax is visualized following recent right thoracentesis. The right pleural effusion has resolved. 2. Stable small left basilar opacity likely representing pleural fluid with associated volume loss an d/or consolidation. Toby Morris MD on September 21, 2016 at 15:27 Board Certified Radiologist. This report was verified electronically.
[2016-09-21 16:09] LABS: TOTAL PROTEIN,PLEURAL FLUID 2.7 GM/DL
[2016-09-21 16:59] LABS: PLEURAL FLUID LYMPHS 46 %
[2016-09-21] MEDS: BUMETANIDE INJ 1 MG/4 ML VIAL IV PUSH SCH (18:14)
[2016-09-21] MEDS: cefTRIAXone INJ 1,000 MG in SODIUM CHLORIDE 0.9% INJ 100 ML IV SCH (18:14)
[2016-09-22] VITALS (12 sets, daily range): BP systolic 108–130; BP diastolic 61–81; PULSE 68–94; RESP 20–22; TEMP 97.7–98.3; O2SAT 87–97
[2016-09-22] MEDS: INSULIN NovoLIN REGULAR SUPPLEMENTAL SCALE SQ SCH ×4 (02:00→20:42)
[2016-09-22] MEDS: CHLORHEXIDINE GLUCONATE 2 % 1 PACK (2 CLOTHS) TOP SCH (04:00)
[2016-09-22] MEDS: methylPREDNISolone SOD SUCC 40 MG/1 ML VIAL IV PUSH SCH ×3 (06:15→20:42)
[2016-09-22] MEDS: LEVOTHYROXINE SODIUM 25 MCG TAB PO SCH (06:15)
[2016-09-22] MEDS: RESP: ALBUTEROL 2.5 MG/IPRATROPIUM 0.5 MG NEB (SCH) INH ×4 (07:43→20:56)
--- NOTE | 2016-09-22 08:07 | PD.CARD.PN ---
Subjective Subjective Remarks breathing improved Objective Vital Signs / I&O Vital Signs Date Time Temp Pulse Resp B/P Pulse Ox O2 Delivery O2 Flow Rate FiO2 09/22/16 07:43 97 Nasal Cannula 6.00 09/22/16 06:00 80 09/22/16 04:00 97.7 73 21 120/66 94 09/22/16 04:00 73 09/22/16 03:58 94 50 09/22/16 02:00 74 09/22/16 00:00 81 09/22/16 00:00 97.8 81 22 124/73 93 09/21/16 22:38 94 50 09/21/16 22:00 86 09/21/16 20:32 92 Partial Rebreather 09/21/16 20:00 91 09/21/16 20:00 97.5 91 25 135/85 97 09/21/16 19:00 88 Nasal Cannula 5.00 09/21/16 18:00 86 09/21/16 16:00 98.5 88 16 120/74 96 09/21/16 16:00 86 09/21/16 16:00 98.2 88 16 85/59 96 09/21/16 14:00 86 09/21/16 12:00 98.2 84 16 86/53 96 09/21/16 12:00 86 09/21/16 10:00 86 09/21/16 08:06 90 Nasal Cannula 6.00 I/O 09/21/16 09/21/16 09/21/16 09/22/16 09/22/16 09/22/16 07:00 15:00 23:00 07:00 15:00 23:00 Intake Total 670 ml 355 ml 42 ml Output Total 250 ml 1900 ml 500 ml 850 ml Balance -250 ml -1230 ml -145 ml -808 ml Intake Oral 420 ml IV Total 250 ml 355 ml 42 ml Output Urine Total 250 ml 400 ml 500 ml 850 ml Drainage Total 1500 ml Physical Exam GENERAL: Well-nourished, well-developed patient in no apparent distress. NECK: No JVD. No carotid bruit. CARDIOVASCULAR: Regular rate and rhythm. S1/S2 no murmur, rub, or gallop. RESPIRATORY: No accessory muscle use. diminished to auscultation. Breath sounds equal bilaterally. GASTROINTESTINAL: Abdomen soft, non-tender, nondistended. MUSCULOSKELETAL: Extremities without clubbing, cyanosis, or edema. Laboratory Laboratory Tests Test 09/21/16 15:15 Pleural Fluid pH 8.0 Pleural Fluid WBC 153 /MM3 Pleural Fluid RBC 280 /MM3 Pleural Fluid Neutrophils 3 % Pleural Fluid Lymphocytes 46 % Pleural Fluid Monocytes 7 % Pleural Fluid Histiocytes 10 % Pleural Fluid Mesothelial 34 % Cells Pleural Fluid Total Protein 2.7 GM/DL Pleural Fluid LDH 127 U/L Pleural Fluid Glucose 212 MG/DL Pleural Fluid Amylase 21 U/L Assessment and Plan Problem List: (1) A-fib (2) Ischemic cardiomyopathy Assessment and Plan a-fib - rate controlled cardiomyopathy - increase carvedilol to 6.25 mg BID Diuresis f/p nephrology Problem Qualifiers (1) A-fib: Qualified Code: I48.2 - Chronic atrial fibrillation Josef Smith Sep 22, 2016 08:07
--- NOTE | 2016-09-22 08:39 | HHI.CCPN ---
Subjective Remarks/Hospital Course PROGRESS NOTE/TRANSFER SUMMARY: The patient is an 86-year-old male with past medical history of chronic atrial fibrillation on Coumadin, CHF, COPD, peripheral vascular disease, diabetes mellitus, chronic kidney disease, cardiomyopathy with EF of 20%, who presented to the ED for worsening shortness of breath for the past several days. He denies any associated symptoms of chest pain, cough or any constitutional symptoms. On arrival to the ED the patient was hypoxic with O2 saturation in the 80s. He was subsequently placed on a non-rebreather mask. An ABG was obtained which showed a pH of 7.27, CO2 51, PAO2 239, bicarb of 23 and saturation 96%. His laboratory data was significant for acute kidney injury with creatinine level of 2.42 and BNP of 3058. Also, he was found to have leukocytosis with a WBC of 14.5 and was coagulopathic with an INR greater than 14.5. His chest x-ray in the ER showed right perihilar airspace disease, likely pneumonia. He received vitamin-K 10 mg IV. In addition, the patient received Rocephin, azithromycin and Lasix 40 mg IV push. The patient is on prednisone at home. 09/20 Patient was on BIPAP 15/5 with 50% FIO2 this morning. Awake and alert. Afebrile WBC increased 19 from 14.5 yesterday. 09/21: Off BiPAP on VM. CXR R> infiltrate and effusion. Bedside US large R effusion. Plan for thoracentesis 09/22: Patient underwent bedside thoracentesis yesterday, 1.5 L of transudative pleural fluid removed. Breathing more comfortably currently on nasal cannula 6 liters. Lab work and chest x-ray pending today Objective Vital Signs Date Time Temp Pulse Resp B/P Pulse Ox O2 Delivery O2 Flow Rate FiO2 09/22/16 07:43 97 Nasal Cannula 6.00 09/22/16 06:00 80 09/22/16 04:00 97.7 21 120/66 09/22/16 03:58 50 Intake and Output 09/21/16 09/21/16 09/22/16 08:00 16:00 00:00 Intake Total 670 ml 355 ml Output Total 250 ml 1900 ml 500 ml Balance -250 ml -1230 ml -145 ml Result Diagram: 09/20/1631709/20/16317 Other Results Microbiology Date/Time Procedure Status Source Growth 09/19/16 14:45 Urine Culture - Final Complete Urine Clean Catch Klebsiella Pneumoniae 09/20/16 13:10 Gram Stain - Final Complete Sputum Expectorated Sputum 09/20/16 13:10 Sputum Culture - Final Complete Sputum Expectorated Sputum LIGHT GROWTH NORMAL RESPIRATORY CINTHIA... 09/20/16 14:15 Legionella Antigen - Final Complete Urine Catheterized Urine PRESUMPTIVE NEGATIVE FOR LEGIONELLA P... 09/20/16 14:15 Streptococcus pneumoniae Antigen (M - Final Complete Urine Catheterized Urine PRESUMPTIVE NEGATIVE FOR STREPTOCOCCU... Imaging Last Impressions Chest X-Ray 09/19/16 1157 Signed Impressions: Service Date/Time: Monday, September 19, 2016 12:04 - CONCLUSION: Right perihilar airspace disease likely pneumonia. Clayton Contreras MD Renal Ultrasound 09/19/16 0000 Signed Impressions: Service Date/Time: Monday, September 19, 2016 14:57 - CONCLUSION: 1. Right sided renal cysts. 2. Nonobstructing calculus lower pole left kidney as described above. 3. Ascites and right pleural effusion. Clayton Contreras MD Head CT 09/19/16 0000 Signed Impressions: Service Date/Time: Monday, September 19, 2016 15:48 - CONCLUSION: 1. Remote lacunar infarcts. 2. No acute intracranial abnormality. Clayton Contreras MD Objective Remarks GENERAL: Patient is 86 yo lying in be in mild resp distress, slightly tachypneic SKIN: Warm and dry. HEAD: Normocephalic. EYES: No scleral icterus. No injection or drainage. NECK: Supple, trachea midline. No JVD or lymphadenopathy. CARDIOVASCULAR: Regular rate and rhythm without murmurs, gallops, or rubs. RESPIRATORY: Breath sounds equal bilaterally. No accessory muscle use. Status post right thoracentesis 09/21/16 with removal of 1.5 L GASTROINTESTINAL: Abdomen soft, non-tender, nondistended. MUSCULOSKELETAL: No cyanosis, or edema. Neuro: Awake and alert. No FND Urinary Catheter: Yes Assessment to: Continue A/P Assessment and Plan 1. Acute hypoxemic and hypercapnic respiratory failure. 2. Right-sided pneumonia. Moderate to large R pleural effusion 3. Decompensated acute on chronic systolic heart failure 4. Cardiomyopathy with EF of 20-25% 5. Acute on chronic kidney disease. 6. Coagulopathy secondary to Coumadin toxicity. 7. Hypothyroidism. 8. Atrial fibrillation. 9. Peripheral vascular disease. 10.History of diabetes mellitus. 11.Coronary artery disease. 12 UTI PLAN Neuro: Monitor neuro status and avoid sedatives. CT brain: No acute process Pulm: Continue to wean down oxygen as tolerated and maintain sats > 90%. Currently on nasal cannula 6 L Bronchodilators, NIPPV p.r.n. for respiratory distress. On p.o. prednisone at home, continue with Solu-Medrol 40 mg IV q.8h. Status post right thoracentesis yesterday 09/21/16 with 1.5 L transudate fluid removed CV: Monitor HR and BP and maintain MAP >65 mmHg. Coreg 3.125mg BID Echo showed EF 20-25%, diffuse hypokinesis, mod-severe pulm HTN with PAP 63mmHg Cards on case- discussed with Dr. Santos. Continue Bumex 1 mg IV every 12 hours : Monitor renal function, I's and O's, and avoid nephrotoxins. Renal- Dr. Cobos. CMP pending Renal US: Right sided renal cysts. Nonobstructing calculus lower pole left kidney. On Allopurinol for Gout. Bumex 1 mg IV every 12 hours GI: Heart healthy, renal diet ID: Continue with abx(Rocephin and azithromycin) and monitor for signs of infection(fever and WBC). Follow up on cultures ( blood, urine) IS negative today Endo: SSI with Accu-Chek q.6h. for glycemic control Continue Synthroid 25mcg daily..TSH 5.1 08/19 Heme: Monitor CBC and coags. s/p vitamin-K 10 mg IV push x1 in the ED for INR 14.5 Repeat INR 1.8 09/20 Resume Coumadin at 1 mg daily. Pharmacy to dose GI prophylaxis with Protonix 40 mg daily. DVT prophylaxis with SCDs/resume Coumadin today Level 2 Consult hospitalist to assume care. Transfer out of ICU. Pulmonary consult Nikolas Luis MD Sep 22, 2016 08:39
[2016-09-22] MEDS: BUMETANIDE INJ 1 MG/4 ML VIAL IV PUSH SCH ×2 (08:40→18:22)
[2016-09-22] MEDS: ALLOPURINOL 100 MG TAB PO SCH (08:41)
[2016-09-22] MEDS: CARVEDILOL 6.25 MG TAB PO SCH ×2 (08:41→20:42)
[2016-09-22] MEDS: PANTOPRAZOLE SODIUM 40 MG VIAL IV SCH (08:41)
[2016-09-22] MEDS: CHOLECALCIFEROL (VIT D3) 1000 UNIT TAB PO SCH (08:41)
[2016-09-22] MEDS: BUDESONIDE-FORMOTEROL 160/4.5 MCG INHALER INH SCH ×2 (09:00→20:42)
[2016-09-22] MEDS: TIOTROPIUM BROMIDE 18 MCG INH INH SCH (09:00)
[2016-09-22 09:11] LABS: AUTOMATED NEUTROPHIL # 11.5 TH/MM3 (1.8-7.7); HEMATOCRIT 46.3 % (39.0-51.0); LYMPH % 46.7 % (9.0-44.0); LYMPHOCYTE # 10.4 TH/MM3 (1.0-4.8); MEAN CORPUSCULAR HEMOGLOBIN 31.4 PG (27.0-34.0); MONO % 1.8 % (0.0-8.0); NEUT % 51.5 % (16.0-70.0); PLATELET COUNT 168 TH/MM3 (150-450); RED BLOOD COUNT 4.73 MIL/MM3 (4.50-5.90); RED CELL DISTRIBUTION WIDTH 16.9 % (11.6-17.2); WHITE BLOOD COUNT 22.3 TH/MM3 (4.0-11.0)
[2016-09-22 09:18] LABS: HEMO FLAGS AUTO DIFF
[2016-09-22 09:37] LABS: ALKALINE PHOSPHATASE 117 U/L (45-117); ALT (GPT) 23 U/L (12-78); ANION GAP 12 MEQ/L (5-15); AST (GOT) 34 U/L (15-37); BICARBONATE 27.4 MEQ/L (21.0-32.0); BLOOD UREA NITROGEN 95 MG/DL (7-18); CHLORIDE 101 MEQ/L (98-107); GLOMERULAR FILTRATION RATE 26 ML/MIN (>89); POTASSIUM 4.1 MEQ/L (3.5-5.1); SODIUM (NA) 140 MEQ/L (136-145); TOTAL BILIRUBIN ADULT 0.7 MG/DL (0.2-1.0)
--- NOTE | 2016-09-22 10:02 | RADRPT ---
EXAM DATE/TIME: 09/22/2016 08:49 [facility] COMPARISON: CHEST SINGLE AP, September 21, 2016, 15:04. INDICATIONS : Respiratory disease. MEDICAL HISTORY : Hypertension. Chronic obstructive pulmonary disease. Diabetes mellitus type II. SURGICAL HISTORY : Pacemaker. ENCOUNTER: Subsequent ACUITY: 1 week PAIN SCORE: 0/10 LOCATION: chest FINDINGS: There is a patchy infiltrate in the right lower lung suggestive of pneumonia. The left lung is clear. The heart is enlarged but stable. There is a pacemaker on the left chest. Otherwise no other signifi cant change compared to the prior study. The bony structures are grossly intact. CONCLUSION: Patchy infiltrate right lower lung suggestive of pneumonia. Ran Valentin MD on September 22, 2016 at 9:59 Board Certified Radiologist. This report was verified electronically.
[2016-09-22 10:27] LABS: INTERNATIONAL NORMALIZED RATIO 1.3 RATIO
[2016-09-22 11:56] LABS: NEUTROPHIL # MANUAL DIFF 11.8 TH/MM3 (1.8-7.7); POLYS (SEG NEUTROPHILS) 53 % (16-70); WBC DIFF SAMPLE 100
[2016-09-22 11:57] LABS: PLATELET ESTIMATE SMEAR NORMAL (NORMAL); PLATELET MORPHOLOGY NORMAL (NORMAL); SCAN/DIFF FINAL DIFF MANUAL
[2016-09-22 11:58] LABS: SMUDGE CELLS PRESENT PRESENT
--- NOTE | 2016-09-22 12:59 | HHI.NPPN ---
Subjective History of Present Illness 86-year-old male with past medical history of atrial fibrillation, ischemic heart disease, congestive heart failure, chronic obstructive pulmonary disease, with low ejection fraction of 20%, chronic kidney disease who came to the hospital with complaint of worsening shortness of breath. I was called to see the patient because of elevated BUN and creatinine. The patient has BUN of 65 and creatinine of 2.4 on presentation. Previously he had creatinine of 1.2-1.4 most of the time in the past. Additional Remarks Patient is alert, breathing is much better, with nasal cannula. Review of Systems General Constitutional: Fatigue Respiratory Lungs: SOB, Sputum, Wheeze Cardiovascular Cardiac: Edema, GRACIA Objective Data Data 09/21/16 09/22/16 19:00 07:00 Intake Total 670 ml 397 ml Output Total 1900 ml 1350 ml Balance -1230 ml -953 ml Intake Oral 420 ml IV Total 250 ml 397 ml Output Urine Total 400 ml 1350 ml Drainage Total 1500 ml Vital Signs Date Time Temp Pulse Resp B/P Pulse Ox O2 Delivery O2 Flow Rate FiO2 09/22/16 08:00 97.9 83 20 118/61 93 09/22/16 08:00 90 Nasal Cannula 5.00 09/22/16 08:00 82 09/22/16 07:43 97 Nasal Cannula 6.00 09/22/16 06:00 80 09/22/16 04:00 97.7 73 21 120/66 94 09/22/16 04:00 73 09/22/16 03:58 94 50 09/22/16 02:00 74 09/22/16 00:00 81 09/22/16 00:00 97.8 81 22 124/73 93 09/21/16 22:38 94 50 09/21/16 22:00 86 09/21/16 20:32 92 Partial Rebreather 09/21/16 20:00 91 09/21/16 20:00 97.5 91 25 135/85 97 09/21/16 19:00 88 Nasal Cannula 5.00 09/21/16 18:00 86 09/21/16 16:00 98.5 88 16 120/74 96 09/21/16 16:00 86 09/21/16 16:00 98.2 88 16 85/59 96 09/21/16 14:00 86 -: 09/22/16 0814 09/22/16 0814 Microbiology 09/21/16 Gram Stain - Final, Resulted 09/21/16 Body Fluid Culture, Resulted Pending 09/21/16 Acid Fast Stain, Received Pending 09/21/16 Mycobacterial Culture, Received Pending 09/21/16 Fungal Smear - Final, Resulted NO FUNGAL ELEMENTS SEEN. 09/21/16 Fungal Culture, Resulted Pending Physical Exam General Appearance: No Acute Distress, Comfortable Eyes Eye Exam: Pupils Equal Throat Throat Exam: Oral Mucosa [place] & Moist Neck Neck Exam: Neck Supple Pulmonary Resp Exam: Crackles, Rhonchi, Decreased Bases, Diminished Breath Sounds Cardiology CV Exam: Regular, Normal Sinus Rhythm Gastrointestinal/Abdomen GI Exam: Soft, Non-Tender Extremeties Extremities Exam: Trace Edema Neurologic Neuro Exam: Alert, Awake, Oriented Psychiatric Psych Exam: Appropriate Responses Assessment/Plan Assessment Summary: [place]/Acute Renal Failure, Fluid/Volume Overload, CHF, CKD Stage III Problem List: (1) CHF (congestive heart failure) (2) Elevated INR (3) Acute hypoxemic respiratory failure (4) A-fib (5) Echea-xv-wjqtjsm kidney injury Plan BUN increased, Creatinine almost same. Urine out put is adequate. Started on Bumex yesterday. Follow urine out put and BMP. Continue antibiotics. Echo results noted, cardiology following. Avoid Nephrotoxins. Problem Qualifiers (1) CHF (congestive heart failure): (2) A-fib: Qualified Code: I48.2 - Chronic atrial fibrillation Tenzin Cobos MD Sep 22, 2016 12:59
[2016-09-22] MEDS: AZITHROMYCIN INJ 500 MG in SODIUM CHLOR 0.9% 250 ML INJ 250 ML IV SCH (14:59)
[2016-09-22] MEDS: WARFARIN SOD 1 MG TAB PO SCH (15:31)
[2016-09-22] MEDS: cefTRIAXone INJ 1,000 MG in SODIUM CHLORIDE 0.9% INJ 100 ML IV SCH (18:21)
--- NOTE | 2016-09-22 19:37 | MB ---
cc: JOSHUA REEVES DATE OF CONSULTATION 09/22/[address] Nix REASON FOR CONSULTATION Evaluation for shortness of breath and pulmonary management PRESENT ILLNESS Mr. Reid lechuga is an 86-year-old male with history of chronic obstructive pulmonary disease, congestive heart failure, cardiomyopathy and AICD placement, chronic kidney disease. He has been having worsening of his shortness of breath over the last three weeks or so to the extent that he can barely walk 20 feet or so. He did not have any cough or sputum production, no fevers or chills. No night sweats. With worsening of his symptoms, he came to the hospital. He had a workup done. He was found to be hypoxic and hypercarbic. The patient was admitted to the intensive care unit. He was on non-rebreather mask and he was treated with BiPAP. Now he is weaned down to 4-6 liters nasal cannula. He feels significantly better. He was also found to have a pleural effusion. He had a thoracentesis done; 1.5 liters of fluid was removed. Fluid is transudative with a protein of 2.7, LDH 127. Cultures are negative. Cytology is pending. PAST MEDICAL HISTORY 1. History of COPD, 2. Cardiomyopathy, 3. Congestive heart failure, 4. Coronary artery disease, 5. Chronic kidney disease 6. 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 Defibrillator placement. MEDICATIONS Currently taking 1. Albuterol Atrovent nebulizer treatment 2. Solu-Medrol 40 mg q. 12-hour. 3. Coumadin 1 mg a day. 4. Coreg 6.25 mg q. 12-hour. 5. Symbicort 160/4.5 one puff twice a day. 6. Spiriva once a day. 7. Rocephin 1 gram a day. 8. Zithromax 500 mg a day. 9. Levothyroxine 25 mcg a day. 9. He is on insulin sliding scale. ALLERGIES SIMVASTATIN SOCIAL HISTORY He has history of smoking which he quit about 14 years ago. He used to drink before. 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 FAMILY HISTORY He is a . His because of Alzheimer's. He lives alone. He has two children who live out of state. He has a stepdaughter who lives in this area. REVIEW OF SYSTEMS He walks only short distance. Does not use any oxygen. No headache or dizziness. No malignancy. No seizure, stroke or epilepsy. PHYSICAL EXAMINATION GENERAL: Pleasant elderly male mildly short of breath. VITAL SIGNS: Blood pressure 118/61, heart rate 83, respirations 20, temperature 98 HEENT: Pupils are equal and react to light. He has bilateral cataracts. Oral mucosa and nasal mucosa normal. NECK: Supple. JVP not raised. CHEST: He has bibasilar rales. CHEST: S1, S2 normal. ABDOMEN: Benign. EXTREMITIES: 1+ pedal edema. FREIGHT SERVICE INSPECTOR: Alert and oriented times three. No focal deficit. IMPRESSION 1. Respiratory insufficiency is improving 2. Congestive heart failure 3. Lung infiltrate. 4. Pleural effusion status post thoracentesis fluid. fluids is transudate 5. COPD. 6. CLL 7. Cardiomyopathy 8. Pulmonary hypertension. He RVSP 64. PLAN We will keep him on supplemental oxygen. The patient is being diuresed. Continue antibiotic. Check the pleural fluid cytology. He is being evaluated by cardiology. He will also need a pulmonary function study and we will evaluate him for possible need for home oxygen therapy. Further treatment will depend on the course in the hospital. Thank you, Dr. Nix, for this consultation. MD KIRILL Solorio/ /5:53 PM /7:00 PM MTDD
[2016-09-23] VITALS (8 sets, daily range): BP systolic 100–131; BP diastolic 58–73; PULSE 76–98; RESP 18–22; TEMP 96.3–98.4; O2SAT 90–97
[2016-09-23] MEDS: INSULIN NovoLIN REGULAR SUPPLEMENTAL SCALE SQ SCH ×4 (02:00→19:41)
[2016-09-23] MEDS: CHLORHEXIDINE GLUCONATE 2 % 1 PACK (2 CLOTHS) TOP SCH (04:00)
[2016-09-23] MEDS: RESP: ALBUTEROL 2.5 MG/IPRATROPIUM 0.5 MG NEB (SCH) INH ×3 (04:02→16:36)
[2016-09-23] MEDS: LEVOTHYROXINE SODIUM 25 MCG TAB PO SCH (04:54)
[2016-09-23 08:05] LABS: INTERNATIONAL NORMALIZED RATIO 1.3 RATIO; PROTHROMBIN TIME - PATIENT 14.7 SEC (9.8-11.6)
[2016-09-23] MEDS: methylPREDNISolone SOD SUCC 40 MG/1 ML VIAL IV PUSH SCH ×2 (08:34→19:47)
[2016-09-23] MEDS: ALLOPURINOL 100 MG TAB PO SCH (08:35)
[2016-09-23] MEDS: PANTOPRAZOLE SODIUM 40 MG VIAL IV SCH (08:35)
[2016-09-23] MEDS: CARVEDILOL 6.25 MG TAB PO SCH ×2 (08:35→19:47)
[2016-09-23] MEDS: BUMETANIDE INJ 1 MG/4 ML VIAL IV PUSH SCH ×2 (08:36→17:22)
[2016-09-23] MEDS: CHOLECALCIFEROL (VIT D3) 1000 UNIT TAB PO SCH (08:36)
[2016-09-23] MEDS: BUDESONIDE-FORMOTEROL 160/4.5 MCG INHALER INH SCH ×2 (08:38→19:44)
[2016-09-23] MEDS: TIOTROPIUM BROMIDE 18 MCG INH INH SCH (09:00)
--- NOTE | 2016-09-23 11:40 | HHI.NPPN ---
Subjective History of Present Illness 86-year-old male with past medical history of atrial fibrillation, ischemic heart disease, congestive heart failure, chronic obstructive pulmonary disease, with low ejection fraction of 20%, chronic kidney disease who came to the hospital with complaint of worsening shortness of breath. I was called to see the patient because of elevated BUN and creatinine. The patient has BUN of 65 and creatinine of 2.4 on presentation. Previously he had creatinine of 1.2-1.4 most of the time in the past. Additional Remarks Patient is alert, breathing is much better, with nasal cannula, has cough and sputum. Review of Systems General Constitutional: Fatigue Respiratory Lungs: SOB, Sputum, Wheeze Cardiovascular Cardiac: Edema, GRACIA Objective Data Data 09/22/16 09/23/16 19:00 07:00 Intake Total 360 ml 519 ml Output Total 1100 ml 1600 ml Balance -740 ml -1081 ml Intake Oral 360 ml 240 ml IV Total 279 ml Output Urine Total 1100 ml 1600 ml # Bowel Movements 0 Vital Signs Date Time Temp Pulse Resp B/P Pulse Ox O2 Delivery O2 Flow Rate FiO2 09/23/16 09:24 90 Nasal Cannula 6.00 09/23/16 08:30 Nasal Cannula 6.00 50 Humidified 09/23/16 08:00 98.4 98 18 131/58 94 09/23/16 00:00 97.8 94 22 123/73 97 09/22/16 22:58 Nasal Cannula 6.00 Humidified 09/22/16 20:58 93 Nasal Cannula 6.00 09/22/16 20:51 98.0 90 22 127/81 94 09/22/16 20:00 90 09/22/16 20:00 94 Nasal Cannula 6.00 09/22/16 20:00 97.8 94 22 123/73 97 09/22/16 16:00 98.3 80 20 108/72 96 09/22/16 16:00 82 09/22/16 12:00 98.0 68 20 130/72 96 09/22/16 12:00 82 -: 09/22/16 0814 09/22/16 0814 Physical Exam General Appearance: No Acute Distress, Comfortable Eyes Eye Exam: Pupils Equal Throat Throat Exam: Oral Mucosa [place] & Moist Neck Neck Exam: Neck Supple Pulmonary Resp Exam: Crackles, Rhonchi, Decreased Bases, Diminished Breath Sounds Cardiology CV Exam: Regular, Normal Sinus Rhythm Gastrointestinal/Abdomen GI Exam: Soft, Non-Tender Extremeties Extremities Exam: Trace Edema Neurologic Neuro Exam: Alert, Awake, Oriented Psychiatric Psych Exam: Appropriate Responses Assessment/Plan Assessment Summary: [place]/Acute Renal Failure, Fluid/Volume Overload, CHF, CKD Stage III Problem List: (1) CHF (congestive heart failure) (2) Elevated INR (3) Acute hypoxemic respiratory failure (4) A-fib (5) Dzhvj-kd-hyupkun kidney injury Plan Urine out put is adequate. On Bumex 1 mg BID. Follow urine out put and BMP. Continue antibiotics. Echo results noted, cardiology following. Avoid Nephrotoxins. No new BMP. Need to restrict salt and fluid intake, explained to the patient. Problem Qualifiers (1) CHF (congestive heart failure): (2) A-fib: Qualified Code: I48.2 - Chronic atrial fibrillation Tenzin Cobos MD Sep 23, 2016 11:40
--- NOTE | 2016-09-23 13:08 | PD.CARD.PN ---
Subjective Subjective Remarks Dyspnea much better. No CP, dizziness, palpitations, PND, orthopnea. Objective Medications Item Value Date Time Warfarin Sodium 1 mg 09/23/16 1600 (Coumadin) ONCE ONCE/PO Warfarin Sodium 1 mg 09/22/16 1600 (Coumadin) DAILY@16/PO 09/22/16 1531 Carvedilol 6.25 mg 09/22/16 0900 (Coreg) Q12HR/PO 09/23/16 0835 Bumetanide 1 mg 09/21/16 1800 (Bumex Inj) BID@,18/IV PUSH 09/23/16 0836 Vital Signs / I&O Vital Signs Date Time Temp Pulse Resp B/P Pulse Ox O2 Delivery O2 Flow Rate FiO2 09/23/16 09:24 90 Nasal Cannula 6.00 09/23/16 08:30 Nasal Cannula 6.00 50 Humidified 09/23/16 08:00 98.4 98 18 131/58 94 09/23/16 00:00 97.8 94 22 123/73 97 09/22/16 22:58 Nasal Cannula 6.00 Humidified 09/22/16 20:58 93 Nasal Cannula 6.00 09/22/16 20:51 98.0 90 22 127/81 94 09/22/16 20:00 90 09/22/16 20:00 94 Nasal Cannula 6.00 09/22/16 20:00 97.8 94 22 123/73 97 09/22/16 16:00 98.3 80 20 108/72 96 09/22/16 16:00 82 I/O 09/22/16 09/22/16 09/22/16 09/23/16 09/23/16 09/23/16 07:00 15:00 23:00 07:00 15:00 23:00 Intake Total 42 ml 360 ml 279 ml 240 ml Output Total 850 ml 1100 ml 1000 ml 600 ml Balance -808 ml -740 ml -721 ml -360 ml Intake Oral 360 ml 240 ml IV Total 42 ml 279 ml 0 ml Output Urine Total 850 ml 1100 ml 1000 ml 600 ml # Bowel Movements 0 Physical Exam GENERAL: Well developed, well nourished. No acute distress. HEENT: Jugular venous pressure 8-9 cm water. CHEST: Diminished breath sounds bases. CARDIAC: Irregular rate and rhythm without S3, S4, or murmur. ABDOMEN: Soft, nontender, no hepatosplenomegaly. Bowel sounds present. EXTREMITIES: No clubbing, cyanosis, or edema. Laboratory Laboratory Tests Test 09/23/16 06:41 Prothrombin Time 14.7 SEC Prothromb Time International 1.3 RATIO Ratio Assessment and Plan Problem List: (1) Non-ischemic cardiomyopathy Assessment and Plan: EF 20-25% by echo. Improving gradually. Good diuresis since admission. No new recommendations at present. Cont beta mirtha. No FABIAN -I with his CRI. (2) A-fib Assessment and Plan: Stable. No HR control issues. Continues on warfarin. INR subtherapeutic. Code Status full code Discussed Condition With patient Problem Qualifiers (1) A-fib: Qualified Code: I48.2 - Chronic atrial fibrillation Elijah Lind MD Sep 23, 2016 13:08
[2016-09-23] MEDS: AZITHROMYCIN INJ 500 MG in SODIUM CHLOR 0.9% 250 ML INJ 250 ML IV SCH (15:24)
[2016-09-23] MEDS ORDERED: WARFARIN SOD 1 MG TAB PO ONE (16:00)
[2016-09-23] MEDS: WARFARIN SOD 1 MG TAB PO SCH (17:23)
[2016-09-23] MEDS: cefTRIAXone INJ 1,000 MG in SODIUM CHLORIDE 0.9% INJ 100 ML IV SCH (17:23)
--- NOTE | 2016-09-23 17:42 | HHI.PR ---
Subjective Remarks {Patient in the bed, doesn't appear in acute distress, however he was noted dessating by the nurse with O2 sat in 80s. He is not compliant with O2. Patient is telling me his O2 sat is fine. Denies chest pain, n/v/d/c.Says he doesn;t feel sob, however he feesl tired. No fever or chills Says he is still coughing whitish sputum. Says he cough up a plastic object and thinks he was mistakenly aspirated but he fels good now. Will order ABG and repeat CXR Objective Vitals Vital Signs Date Time Temp Pulse Resp B/P Pulse Ox O2 Delivery O2 Flow Rate FiO2 09/23/16 16:00 98.2 92 18 106/67 91 09/23/16 09:24 90 Nasal Cannula 6.00 09/23/16 08:30 Nasal Cannula 6.00 50 Humidified 09/23/16 08:00 98.4 98 18 131/58 94 09/23/16 00:00 97.8 94 22 123/73 97 09/22/16 22:58 Nasal Cannula 6.00 Humidified 09/22/16 20:58 93 Nasal Cannula 6.00 09/22/16 20:51 98.0 90 22 127/81 94 09/22/16 20:00 90 09/22/16 20:00 94 Nasal Cannula 6.00 09/22/16 20:00 97.8 94 22 123/73 97 I/O 09/22/16 09/22/16 09/22/16 09/23/16 09/23/16 09/23/16 07:00 15:00 23:00 07:00 15:00 23:00 Intake Total 42 ml 360 ml 279 ml 240 ml 800 ml Output Total 850 ml 1100 ml 1000 ml 600 ml 1650 ml Balance -808 ml -740 ml -721 ml -360 ml -850 ml Intake Oral 360 ml 240 ml 800 ml IV Total 42 ml 279 ml 0 ml 0 ml Output Urine Total 850 ml 1100 ml 1000 ml 600 ml 1650 ml # Bowel Movements 0 1 Result Diagram: 09/22/16 0814 09/22/16 0814 Imaging Last Impressions Chest X-Ray 09/22/16 0000 Signed Impressions: Service Date/Time: Thursday, September 22, 2016 08:49 - CONCLUSION: Patchy infiltrate right lower lung suggestive of pneumonia. Ran Valentin MD Renal Ultrasound 09/19/16 0000 Signed Impressions: Service Date/Time: Monday, September 19, 2016 14:57 - CONCLUSION: 1. Right sided renal cysts. 2. Nonobstructing calculus lower pole left kidney as described above. 3. Ascites and right pleural effusion. Clayton Contreras MD Head CT 09/19/16 0000 Signed Impressions: Service Date/Time: Monday, September 19, 2016 15:48 - CONCLUSION: 1. Remote lacunar infarcts. 2. No acute intracranial abnormality. Clayton Contreras MD Objective Remarks GENERAL: Patient is 86 yo lying in be in mild resp distress, slightly tachypneic on vetimask SKIN: Warm and dry. HEAD: Normocephalic. EYES: No scleral icterus. No injection or drainage. NECK: Supple, trachea midline. No JVD or lymphadenopathy. CARDIOVASCULAR: Regular rate and rhythm without murmurs, gallops, or rubs. RESPIRATORY: Breath sounds decreased bilaterally. Scattered wheezing. No accessory muscle use. Status post right thoracentesis 09/21/16 with removal of 1.5 L GASTROINTESTINAL: Abdomen soft, non-tender, nondistended. MUSCULOSKELETAL: No cyanosis, or edema. Neuro: Awake and alert. No FND A/P Assessment and Plan Acute hypoxemic and hypercapnic respiratory failure. Right-sided pneumonia. Moderate to large R pleural effusion Decompensated acute on chronic systolic heart failure Cardiomyopathy with EF of 20-25% Acute on chronic kidney disease. Coagulopathy secondary to Coumadin toxicity. Hypothyroidism. Atrial fibrillation. Peripheral vascular disease. History of diabetes mellitus. Coronary artery disease. UTI PLAN Neuro: Monitor neuro status and avoid sedatives. CT brain: No acute process Pulm: Continue to wean down oxygen as tolerated and maintain sats > 90%. Currently on nasal cannula 6 L Bronchodilators, NIPPV p.r.n. for respiratory distress. On p.o. prednisone at home, continue with Solu-Medrol 40 mg IV q.8h. Status post right thoracentesis yesterday 09/21/16 with 1.5 L transudate fluid removed CV: Monitor HR and BP and maintain MAP >65 mmHg. Coreg 3.125mg BID Echo showed EF 20-25%, diffuse hypokinesis, mod-severe pulm HTN with PAP 63mmHg Cards on case- discussed with Dr. Santos. Continue Bumex 1 mg IV every 12 hours : Monitor renal function, I's and O's, and avoid nephrotoxins. Renal- Dr. Cobos. CMP pending Renal US: Right sided renal cysts. Nonobstructing calculus lower pole left kidney. On Allopurinol for Gout. Bumex 1 mg IV every 12 hours GI: Heart healthy, renal diet ID: Continue with abx(Rocephin and azithromycin) and monitor for signs of infection(fever and WBC). Follow up on cultures ( blood, urine) IS negative today Endo: SSI with Accu-Chek q.6h. for glycemic control Continue Synthroid 25mcg daily..TSH 5.1 08/19 Heme: Monitor CBC and coags. s/p vitamin-K 10 mg IV push x1 in the ED for INR 14.5 Repeat INR 1.8 09/20 Resume Coumadin at 1 mg daily. Pharmacy to dose GI prophylaxis with Protonix 40 mg daily. DVT prophylaxis with SCDs/resume Coumadin today Discussed with the patient , nurse. Trisha Emanuel MD Sep 23, 2016 17:42
[2016-09-23 18:50] LABS: BLOOD GAS BASE EXCESS 0.1 mmol/L (-2-2); BLOOD GAS CARBOXYHEMOGLOBIN 1.4 % (0-4); BLOOD GAS HCO3 24 mmol/L (22-26); BLOOD GAS METHEMOGLOBIN 0.5 % (0-2); BLOOD GAS O2 HGB SATURATION 94 % (90-100); BLOOD GAS OXYGEN CONTENT 21.2 Vol % (12.0-20.0); BLOOD GAS PCO2 40 mmHg (38-42); BLOOD GAS PO2 85 mmHg (61-120); CRITICAL VALUE NO; DRAW SITE LT RADIAL; LITER FLOW 6 L/M; NUMBER OF ARTERIAL PUNCTURES 1; OXYGEN DEVICE SIMPLE MASK; STAT YES; TEMP CORR TO 98.6; ULNAR PULSE PRESENT
--- NOTE | 2016-09-23 19:09 | RADRPT ---
EXAM DATE/TIME: 09/23/2016 18:40 [facility] COMPARISON: CHEST SINGLE AP, September 22, 2016, 8:49. INDICATIONS : Short of Breath MEDICAL HISTORY : : Hypertension. Chronic obstructive pulmonary disease. Diabetes mellitus type 2 SURGICAL HISTORY : Pacemaker. ENCOUNTER: Subsequent ACUITY: 1 week PAIN SCORE: 0/10 LOCATION: Bilateral chest FINDINGS: A single view of the chest demonstrates cardiomegaly with bilateral perihilar airspace disease. Left basilar airspace disease. Left-sided defibrillator unchanged.. Osseous structures are intact. CONCLUSION: Cardiomegaly with bilateral airspace disease. Clayton Contreras MD on September 23, 2016 at 19:07 Board Certified Radiologist. This report was verified electronically.
[2016-09-24] MEDS: INSULIN NovoLIN REGULAR SUPPLEMENTAL SCALE SQ SCH ×4 (02:00→19:25)
[2016-09-24] MEDS: CHLORHEXIDINE GLUCONATE 2 % 1 PACK (2 CLOTHS) TOP SCH (04:00)
[2016-09-24 04:03] VITALS: O2SAT 99
[2016-09-24] MEDS: RESP: ALBUTEROL 2.5 MG/IPRATROPIUM 0.5 MG NEB (SCH) INH ×4 (04:10→21:32)
[2016-09-24] MEDS: LEVOTHYROXINE SODIUM 25 MCG TAB PO SCH (05:40)
[2016-09-24 06:54] LABS: AUTOMATED NEUTROPHIL # 12.3 TH/MM3 (1.8-7.7); BASOPHIL # 0.2 TH/MM3 (0-0.2); BASOPHIL % 0.7 % (0.0-2.0); HEMATOCRIT 46.2 % (39.0-51.0); LYMPH % 49.7 % (9.0-44.0); LYMPHOCYTE # 13.7 TH/MM3 (1.0-4.8); MEAN CELL VOLUME 96.5 FL (80.0-100.0); MEAN CORPUSCULAR HEMOGLOBIN 30.8 PG (27.0-34.0); MEAN CORPUSCULAR HGB CONC 31.9 % (32.0-36.0); MONO % 5.2 % (0.0-8.0); NEUT % 44.4 % (16.0-70.0); PLATELET COUNT 139 TH/MM3 (150-450); RED BLOOD COUNT 4.79 MIL/MM3 (4.50-5.90); RED CELL DISTRIBUTION WIDTH 16.4 % (11.6-17.2); WHITE BLOOD COUNT 27.6 TH/MM3 (4.0-11.0)
[2016-09-24 06:59] LABS: MAGNESIUM 2.2 MG/DL (1.5-2.5); POTASSIUM 4.4 MEQ/L (3.5-5.1)
[2016-09-24 07:19] LABS: HEMO FLAGS AUTO DIFF; INTERNATIONAL NORMALIZED RATIO 1.3 RATIO; PROTHROMBIN TIME - PATIENT 14.4 SEC (9.8-11.6)
[2016-09-24 08:00] VITALS: BP 116/65; PULSE 70; RESP 18; TEMP 98.4; O2SAT 91
--- NOTE | 2016-09-24 09:09 | HHI.PR ---
Subjective Remarks f/u for SOB. patient has no complaints. He stated that breathing has improved. Denied any SOB. + productive cough that has improved. Denied any fever or chills. Objective Vitals Vital Signs Date Time Temp Pulse Resp B/P Pulse Ox O2 Delivery O2 Flow Rate FiO2 09/24/16 08:00 98.4 70 18 116/65 91 09/24/16 04:03 99 50 09/23/16 23:59 96.3 76 21 124/66 95 09/23/16 22:12 94 40 09/23/16 21:55 92 4.00 09/23/16 21:37 Nasal Cannula 4.00 Humidified 09/23/16 20:00 96.8 80 21 100/60 93 09/23/16 16:00 98.2 92 18 106/67 91 09/23/16 09:24 90 Nasal Cannula 6.00 I/O 09/23/16 09/23/16 09/23/16 09/24/16 09/24/16 09/24/16 07:00 15:00 23:00 07:00 15:00 23:00 Intake Total 240 ml 800 ml 120 ml 90 ml Output Total 600 ml 1650 ml 300 ml 400 ml Balance -360 ml -850 ml -180 ml -310 ml Intake Oral 240 ml 800 ml 120 ml 90 ml IV Total 0 ml 0 ml 0 ml 0 ml Output Urine Total 600 ml 1650 ml 300 ml 400 ml # Bowel Movements 0 1 0 0 Result Diagram: 09/24/16 0556 09/24/16 0556 Other Results Laboratory Tests Test 09/23/16 09/24/16 18:35 05:56 Blood Gas Puncture Site LT RADIAL Blood Gas Patient Temperature 98.6 Blood Gas HCO3 24 Blood Gas Base Excess 0.1 Blood Gas Oxygen Saturation 94 Arterial Blood pH 7.41 Arterial Blood Partial 40 Pressure CO2 Arterial Blood Partial 85 Pressure O2 Arterial Blood Oxygen Content 21.2 Arterial Blood 1.4 Carboxyhemoglobin Arterial Blood Methemoglobin 0.5 Blood Gas Hemoglobin 16.0 Oxygen Delivery Device SIMPLE MASK Blood Gas Liter Flow 6 White Blood Count 27.6 Red Blood Count 4.79 Hemoglobin 14.7 Hematocrit 46.2 Mean Corpuscular Volume 96.5 Mean Corpuscular Hemoglobin 30.8 Mean Corpuscular Hemoglobin 31.9 Concent Red Cell Distribution Width 16.4 Platelet Count 139 Mean Platelet Volume 9.3 Neutrophils (%) (Auto) 44.4 Lymphocytes (%) (Auto) 49.7 Monocytes (%) (Auto) 5.2 Eosinophils (%) (Auto) 0.0 Basophils (%) (Auto) 0.7 Neutrophils # (Auto) 12.3 Lymphocytes # (Auto) 13.7 Monocytes # (Auto) 1.4 Eosinophils # (Auto) 0.0 Basophils # (Auto) 0.2 CBC Comment AUTO DIFF Prothrombin Time 14.4 Prothromb Time International 1.3 Ratio Sodium Level 145 Potassium Level 4.4 Chloride Level 103 Carbon Dioxide Level 34.0 Anion Gap 8 Blood Urea Nitrogen 92 Creatinine 1.89 Estimat Glomerular Filtration 34 Rate Random Glucose 133 Calcium Level 8.4 Magnesium Level 2.2 Date/Time Procedure Status Source Growth 09/21/16 15:15 Gram Stain - Final Resulted Fluid Pleural Fluid 09/21/16 15:15 Body Fluid Culture - Preliminary Resulted Fluid Pleural Fluid NO GROWTH IN 48 HOURS. 09/21/16 15:15 Fungal Smear - Final Resulted Fluid Pleural Fluid NO FUNGAL ELEMENTS SEEN. 09/21/16 15:15 Fungal Culture Resulted Fluid Pleural Fluid Pending 09/21/16 15:15 Acid Fast Stain - Final Resulted Fluid Pleural Fluid NO ACID FAST BACILLI SEEN 09/21/16 15:15 Mycobacterial Culture Resulted Fluid Pleural Fluid Pending 09/20/16 14:15 Legionella Antigen - Final Complete Urine Catheterized Urine PRESUMPTIVE NEGATIVE FOR LEGIONELLA P... 09/20/16 14:15 Streptococcus pneumoniae Antigen (M - Final Complete Urine Catheterized Urine PRESUMPTIVE NEGATIVE FOR STREPTOCOCCU... 09/19/16 14:45 Urine Culture - Final Complete Urine Clean Catch Klebsiella Pneumoniae 09/19/16 13:20 Aerobic Blood Culture - Preliminary Resulted Blood Peripheral NO GROWTH IN 4 DAYS 09/19/16 13:20 Anaerobic Blood Culture - Preliminary Resulted Blood Peripheral NO GROWTH IN 4 DAYS Imaging Last Impressions Chest X-Ray 09/23/16 0000 Signed Impressions: Service Date/Time: Friday, September 23, 2016 18:40 - CONCLUSION: Cardiomegaly with bilateral airspace disease. Clayton Contreras MD Renal Ultrasound 09/19/16 0000 Signed Impressions: Service Date/Time: Monday, September 19, 2016 14:57 - CONCLUSION: 1. Right sided renal cysts. 2. Nonobstructing calculus lower pole left kidney as described above. 3. Ascites and right pleural effusion. Clayton Contreras MD Head CT 09/19/16 0000 Signed Impressions: Service Date/Time: Monday, September 19, 2016 15:48 - CONCLUSION: 1. Remote lacunar infarcts. 2. No acute intracranial abnormality. Clayton Contreras MD Objective Remarks gen NAD Resp distant lung sounds Abd soft NDNT CV RRR. no r/m/g Medications and IVs Reported Meds & Active Scripts Active Reported Coumadin (Warfarin) 2 Mg Tab 2 Mg PO DAILY Vitamin D-3 (Cholecalciferol) 1,000 Unit Tab 1,000 Units PO DAILY Pravastatin 40 Mg Tab 40 Mg PO DAILY Prednisone 10 Mg Tab 10 Mg PO DAILY Tamsulosin (Tamsulosin HCl) 0.4 Mg Cap 0.4 Mg PO HS Potassium Chloride ER (Potassium Chloride) 10 Meq Cap 10 Meq PO DAILY Allopurinol 100 Mg Tab 100 Mg PO DAILY Synthroid (Levothyroxine Sodium) 25 Mcg Tab 25 Mcg PO DAILY Lasix (Furosemide) 80 Mg Tab 80 Mg PO DAILY Hydrochlorothiazide 12.5 Mg Cap 12.5 Mg PO DAILY Lisinopril 5 Mg Tab 5 Mg PO DAILY Carvedilol 12.5 Mg Tab 25 Mg PO BID A/P Assessment and Plan Acute hypoxemic and hypercapnic respiratory failure -due to combination of PNA and CHF. -improving. see treatment as below. Right-sided pneumonia. Moderate to large R pleural effusion -s/p thoracentesis on 09/21 -Continue with abx(Rocephin and azithromycin) and monitor for signs of infection (fever and WBC). -on solumedrol will decrease dosage tomorrow. Decompensated acute on chronic systolic heart failure -in IV bumex 1 mg IV BID. 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 Acute chronic kidney disease -due to CHF -improving. - Monitor renal function, I's and O's, and avoid nephrotoxins. -Renal ff Dr. Cobos. = -Renal US: Right sided renal cysts. Nonobstructing calculus lower pole left kidney. -On Allopurinol for Gout. Bumex 1 mg IV every 12 hour Coagulopathy secondary to Coumadin toxicity -Monitor CBC and coags. s/p vitamin-K 10 mg IV push x1 in the ED for INR 14.5 -resumed at Coumadin at 1 mg daily. Pharmacy to dose UTI Klebsiella -on antibiotics. Atrial fibrillation/Peripheral vascular disease/History of diabetes mellitus/ Coronary artery disease/hypothyroidism -home medication resumed. GI prophylaxis with Protonix 40 mg daily. DVT prophylaxis with SCDs/resume Coumadin today Janet Molina MD Sep 24, 2016 09:09
[2016-09-24] MEDS: ALLOPURINOL 100 MG TAB PO SCH (09:11)
[2016-09-24] MEDS: PANTOPRAZOLE SODIUM 40 MG VIAL IV SCH (09:11)
[2016-09-24] MEDS: methylPREDNISolone SOD SUCC 40 MG/1 ML VIAL IV PUSH SCH ×2 (09:11→19:25)
[2016-09-24] MEDS: BUMETANIDE INJ 1 MG/4 ML VIAL IV PUSH SCH (09:11)
[2016-09-24] MEDS: CHOLECALCIFEROL (VIT D3) 1000 UNIT TAB PO SCH (09:11)
[2016-09-24] MEDS: CARVEDILOL 6.25 MG TAB PO SCH ×2 (09:11→19:25)
[2016-09-24] MEDS: TIOTROPIUM BROMIDE 18 MCG INH INH SCH (09:13)
[2016-09-24] MEDS: BUDESONIDE-FORMOTEROL 160/4.5 MCG INHALER INH SCH ×2 (09:13→19:25)
[2016-09-24 10:00] VITALS: O2SAT 93
[2016-09-24 10:05] LABS: NEUTROPHIL # MANUAL DIFF 10.2 TH/MM3 (1.8-7.7); POLYS (SEG NEUTROPHILS) 37 % (16-70); WBC DIFF SAMPLE 100
[2016-09-24 10:06] LABS: OVALOCYTES 1+ (NORMAL); PLATELET ESTIMATE SMEAR LOW (NORMAL); PLATELET MORPHOLOGY NORMAL (NORMAL); SCAN/DIFF FINAL DIFF MANUAL; SMUDGE CELLS PRESENT PRESENT
--- NOTE | 2016-09-24 10:32 | HHI.NPPN ---
Subjective History of Present Illness 86-year-old male with past medical history of atrial fibrillation, ischemic heart disease, congestive heart failure, chronic obstructive pulmonary disease, with low ejection fraction of 20%, chronic kidney disease who came to the hospital with complaint of worsening shortness of breath. I was called to see the patient because of elevated BUN and creatinine. The patient has BUN of 65 and creatinine of 2.4 on presentation. Previously he had creatinine of 1.2-1.4 most of the time in the past. Additional Remarks Patient is alert, breathing is better, eating well. Review of Systems General Constitutional: Fatigue Respiratory Lungs: SOB, Sputum, Wheeze Cardiovascular Cardiac: Edema, GRACIA Objective Data Data 09/23/16 09/24/16 19:00 07:00 Intake Total 800 ml 210 ml Output Total 1650 ml 700 ml Balance -850 ml -490 ml Intake Oral 800 ml 210 ml IV Total 0 ml 0 ml Output Urine Total 1650 ml 700 ml # Bowel Movements 1 0 Vital Signs Date Time Temp Pulse Resp B/P Pulse Ox O2 Delivery O2 Flow Rate FiO2 09/24/16 08:00 98.4 70 18 116/65 91 09/24/16 04:03 99 50 09/23/16 23:59 96.3 76 21 124/66 95 09/23/16 22:12 94 40 09/23/16 21:55 92 4.00 09/23/16 21:37 Nasal Cannula 4.00 Humidified 09/23/16 20:00 96.8 80 21 100/60 93 09/23/16 16:00 98.2 92 18 106/67 91 -: 09/24/16 0556 09/24/16 0556 Physical Exam General Appearance: No Acute Distress, Comfortable Eyes Eye Exam: Pupils Equal Throat Throat Exam: Oral Mucosa Ragan & Moist Neck Neck Exam: Neck Supple Pulmonary Resp Exam: Crackles, Rhonchi, Decreased Bases, Diminished Breath Sounds Cardiology CV Exam: Regular, Normal Sinus Rhythm Gastrointestinal/Abdomen GI Exam: Soft, Non-Tender Extremeties Extremities Exam: Trace Edema Neurologic Neuro Exam: Alert, Awake, Oriented Psychiatric Psych Exam: Appropriate Responses Assessment/Plan Assessment Summary: MIREILLE/Acute Renal Failure, Fluid/Volume Overload, CHF, CKD Stage III Problem List: (1) CHF (congestive heart failure) (2) Elevated INR (3) Acute hypoxemic respiratory failure (4) A-fib (5) [id number]-[id number] kidney injury Plan Urine out put is adequate. On Bumex 1 mg BID. Follow urine out put and BMP. Continue antibiotics. Echo results noted, cardiology following. Avoid Nephrotoxins. Need to restrict salt and fluid intake, explained to the patient. Creatinine is better, D/C Godfrey's catheter. Problem Qualifiers (1) CHF (congestive heart failure): (2) A-fib: Qualified Code: I48.2 - Chronic atrial fibrillation Tenzin Cobos MD Sep 24, 2016 10:31
[2016-09-24 12:00] VITALS: BP 118/74; PULSE 82; RESP 20; TEMP 98.2; O2SAT 91
--- NOTE | 2016-09-24 12:08 | PD.CARD.PN ---
Subjective Subjective Remarks Denies dyspnea, CP, dizziness, palpitations, PND. Slept well. Objective Medications Item Value Date Time Warfarin Sodium 2.5 mg 09/24/16 1600 (Coumadin) ONCE ONCE/PO Carvedilol 6.25 mg 09/22/16 0900 (Coreg) Q12HR/PO 09/24/16 0911 Bumetanide 1 mg 09/21/16 1800 (Bumex Inj) BID@09,18/IV PUSH 09/24/16 0911 Vital Signs / I&O Vital Signs Date Time Temp Pulse Resp B/P Pulse Ox O2 Delivery O2 Flow Rate FiO2 09/24/16 10:00 93 09/24/16 10:00 93 Nasal Cannula 4.00 09/24/16 09:10 Nasal Cannula 4.00 50 Humidified 09/24/16 08:00 98.4 70 18 116/65 91 09/24/16 04:03 99 50 09/23/16 23:59 96.3 76 21 124/66 95 09/23/16 22:12 94 40 09/23/16 21:55 92 4.00 09/23/16 21:37 Nasal Cannula 4.00 Humidified 09/23/16 20:00 96.8 80 21 100/60 93 09/23/16 16:00 98.2 92 18 106/67 91 I/O 09/23/16 09/23/16 09/23/16 09/24/16 09/24/16 09/24/16 07:00 15:00 23:00 07:00 15:00 23:00 Intake Total 240 ml 800 ml 120 ml 90 ml Output Total 600 ml 1650 ml 300 ml 400 ml Balance -360 ml -850 ml -180 ml -310 ml Intake Oral 240 ml 800 ml 120 ml 90 ml IV Total 0 ml 0 ml 0 ml 0 ml Output Urine Total 600 ml 1650 ml 300 ml 400 ml # Bowel Movements 0 1 0 0 Physical Exam GENERAL: Well developed, well nourished. No acute distress. HEENT: Jugular venous pressure normal. CHEST: Diminished breath sounds bases. CARDIAC: Irregular rate and rhythm without S3, S4, or murmur. ABDOMEN: Soft, nontender, no hepatosplenomegaly. Bowel sounds present. EXTREMITIES: No clubbing, cyanosis, or edema. Laboratory Laboratory Tests Test 09/23/16 09/24/16 18:35 05:56 Blood Gas Puncture Site LT RADIAL Blood Gas Patient Temperature 98.6 Blood Gas HCO3 24 mmol/L Blood Gas Base Excess 0.1 mmol/L Blood Gas Oxygen Saturation 94 % Arterial Blood pH 7.41 Arterial Blood Partial 40 mmHg Pressure CO2 Arterial Blood Partial 85 mmHg Pressure O2 Arterial Blood Oxygen Content 21.2 Vol % Arterial Blood 1.4 % Carboxyhemoglobin Arterial Blood Methemoglobin 0.5 % Blood Gas Hemoglobin 16.0 G/DL Oxygen Delivery Device SIMPLE MASK Blood Gas Liter Flow 6 L/M White Blood Count 27.6 TH/MM3 Red Blood Count 4.79 MIL/MM3 Hemoglobin 14.7 GM/DL Hematocrit 46.2 % Mean Corpuscular Volume 96.5 FL Mean Corpuscular Hemoglobin 30.8 PG Mean Corpuscular Hemoglobin 31.9 % Concent Red Cell Distribution Width 16.4 % Platelet Count 139 TH/MM3 Mean Platelet Volume 9.3 FL Neutrophils (%) (Auto) 44.4 % Lymphocytes (%) (Auto) 49.7 % Monocytes (%) (Auto) 5.2 % Eosinophils (%) (Auto) 0.0 % Basophils (%) (Auto) 0.7 % Neutrophils # (Auto) 12.3 TH/MM3 Lymphocytes # (Auto) 13.7 TH/MM3 Monocytes # (Auto) 1.4 TH/MM3 Eosinophils # (Auto) 0.0 TH/MM3 Basophils # (Auto) 0.2 TH/MM3 CBC Comment AUTO DIFF Differential Total Cells 100 Counted Neutrophils % (Manual) 37 % Lymphocytes % 60 % Monocytes % 3 % Neutrophils # (Manual) 10.2 TH/MM3 Differential Comment FINAL DIFF MANUAL Smudge Cells PRESENT Platelet Estimate LOW Platelet Morphology Comment NORMAL Ovalocytes 1+ Prothrombin Time 14.4 SEC Prothromb Time International 1.3 RATIO Ratio Sodium Level 145 MEQ/L Potassium Level 4.4 MEQ/L Chloride Level 103 MEQ/L Carbon Dioxide Level 34.0 MEQ/L Anion Gap 8 MEQ/L Blood Urea Nitrogen 92 MG/DL Creatinine 1.89 MG/DL Estimat Glomerular Filtration 34 ML/MIN Rate Random Glucose 133 MG/DL Calcium Level 8.4 MG/DL Magnesium Level 2.2 MG/DL Assessment and Plan Problem List: (1) Non-ischemic cardiomyopathy Assessment and Plan: EF 20-25% by echo. Improving gradually. Good diuresis since admission. No new recommendations at present. Cont beta mirtha. No FABIAN -I with his CRI. Can probably change diuretic to po. (2) A-fib Assessment and Plan: Stable. No HR control issues. Continues on warfarin. INR subtherapeutic. Rec increase warfarin dosing. Code Status full code Discussed Condition With patient Problem Qualifiers (1) A-fib: Qualified Code: I48.2 - Chronic atrial fibrillation Elijah Lind MD Sep 24, 2016 12:07
[2016-09-24] MEDS: AZITHROMYCIN INJ 500 MG in SODIUM CHLOR 0.9% 250 ML INJ 250 ML IV SCH (14:06)
[2016-09-24] MEDS ORDERED: WARFARIN SOD 2.5 MG TAB PO ONE (16:00)
[2016-09-24] MEDS: cefTRIAXone INJ 1,000 MG in SODIUM CHLORIDE 0.9% INJ 100 ML IV SCH (17:06)
[2016-09-24 20:00] VITALS: BP 132/72; PULSE 80; RESP 19; TEMP 96.8; O2SAT 93
[2016-09-25] VITALS (8 sets, daily range): BP systolic 106–136; BP diastolic 58–87; PULSE 70–99; RESP 18–21; TEMP 96–96.4; O2SAT 92–99
[2016-09-25] MEDS: CHLORHEXIDINE GLUCONATE 2 % 1 PACK (2 CLOTHS) TOP SCH (03:40)
[2016-09-25] MEDS: INSULIN NovoLIN REGULAR SUPPLEMENTAL SCALE SQ SCH ×4 (03:40→20:20)
[2016-09-25] MEDS: RESP: ALBUTEROL 2.5 MG/IPRATROPIUM 0.5 MG NEB (SCH) INH ×4 (04:07→21:09)
[2016-09-25] MEDS: LEVOTHYROXINE SODIUM 25 MCG TAB PO SCH (05:27)
[2016-09-25 05:29] LABS: HEMATOCRIT 48.1 % (39.0-51.0); MEAN CELL VOLUME 96.8 FL (80.0-100.0); MEAN CORPUSCULAR HEMOGLOBIN 30.5 PG (27.0-34.0); MEAN CORPUSCULAR HGB CONC 31.5 % (32.0-36.0); PLATELET COUNT 130 TH/MM3 (150-450); RED BLOOD COUNT 4.97 MIL/MM3 (4.50-5.90); RED CELL DISTRIBUTION WIDTH 16.3 % (11.6-17.2); WHITE BLOOD COUNT 31.4 TH/MM3 (4.0-11.0)
[2016-09-25 05:36] LABS: INTERNATIONAL NORMALIZED RATIO 1.4 RATIO; PROTHROMBIN TIME - PATIENT 15.4 SEC (9.8-11.6)
[2016-09-25 05:37] LABS: REVIEW FLAG FINAL
[2016-09-25 05:46] LABS: BICARBONATE 29.9 MEQ/L (21.0-32.0); POTASSIUM 4.6 MEQ/L (3.5-5.1)
--- NOTE | 2016-09-25 08:03 | PD.CARD.PN ---
Subjective Subjective Remarks denies chest pain (Josef Smith) Objective Vital Signs / I&O Vital Signs Date Time Temp Pulse Resp B/P Pulse Ox O2 Delivery O2 Flow Rate FiO2 09/25/16 00:02 99 50 09/25/16 00:00 96.0 72 19 118/72 92 09/24/16 21:44 Nasal Cannula 4.00 Humidified 09/24/16 21:35 Nasal Cannula 4.00 09/24/16 20:00 96.8 80 19 132/72 93 09/24/16 12:00 98.2 82 20 118/74 91 09/24/16 10:00 93 09/24/16 10:00 93 Nasal Cannula 4.00 09/24/16 09:10 Nasal Cannula 4.00 50 Humidified 09/24/16 08:00 98.4 70 18 116/65 91 I/O 09/24/16 09/24/16 09/24/16 09/25/16 09/25/16 09/25/16 07:00 15:00 23:00 07:00 15:00 23:00 Intake Total 90 ml 600 ml 340 ml 240 ml Output Total 400 ml 850 ml 150 ml 450 ml Balance -310 ml -250 ml 190 ml -210 ml Intake Oral 90 ml 600 ml 240 ml 240 ml IV Total 0 ml 0 ml 100 ml 0 ml Output Urine Total 400 ml 850 ml 150 ml 450 ml # Bowel Movements 0 1 2 1 Physical Exam GENERAL: Well-nourished, well-developed patient in no apparent distress. NECK: No JVD. No carotid bruit. CARDIOVASCULAR: Regular rate and rhythm. S1/S2 no murmur, rub, or gallop. RESPIRATORY: No accessory muscle use. diminished to auscultation. Breath sounds equal bilaterally. GASTROINTESTINAL: Abdomen soft, non-tender, nondistended. MUSCULOSKELETAL: Extremities without clubbing, cyanosis, or edema. Laboratory Laboratory Tests Test 09/25/16 04:58 White Blood Count 31.4 TH/MM3 Red Blood Count 4.97 MIL/MM3 Hemoglobin 15.2 GM/DL Hematocrit 48.1 % Mean Corpuscular Volume 96.8 FL Mean Corpuscular Hemoglobin 30.5 PG Mean Corpuscular Hemoglobin 31.5 % Concent Red Cell Distribution Width 16.3 % Platelet Count 130 TH/MM3 Mean Platelet Volume 9.5 FL Prothrombin Time 15.4 SEC Prothromb Time International 1.4 RATIO Ratio Sodium Level 141 MEQ/L Potassium Level 4.6 MEQ/L Chloride Level 102 MEQ/L Carbon Dioxide Level 29.9 MEQ/L Anion Gap 9 MEQ/L Blood Urea Nitrogen 91 MG/DL Creatinine 1.88 MG/DL Estimat Glomerular Filtration 34 ML/MIN Rate Random Glucose 185 MG/DL Calcium Level 8.2 MG/DL (Josef Smith) Assessment and Plan Problem List: (1) Non-ischemic cardiomyopathy (2) A-fib Assessment and Plan a-fib - rate controlled, warfarin was stopped, restart at 2 mg daily secondary to ongoing antibiotics cardiomyopathy - continue carvedilol to 6.25 mg BID Diuresis f/b nephrology (Josef Smith) Assessment and Plan appears close to cardiac baseline. known CM continue current regimen FU with [place] fund director will sign off call with further questions no FABIAN due to CKD (Mat Santos MD) Problem Qualifiers (1) A-fib: Qualified Code: I48.2 - Chronic atrial fibrillation Josef Smith Sep 25, 2016 08:03 Mat Santos MD Sep 25, 2016 12:29
[2016-09-25] MEDS: CARVEDILOL 6.25 MG TAB PO SCH (09:00)
[2016-09-25] MEDS: ALLOPURINOL 100 MG TAB PO SCH (09:00)
[2016-09-25] MEDS: methylPREDNISolone SOD SUCC 40 MG/1 ML VIAL IV PUSH SCH (09:16)
[2016-09-25] MEDS: CHOLECALCIFEROL (VIT D3) 1000 UNIT TAB PO SCH (09:17)
[2016-09-25] MEDS: BUMETANIDE 1 MG TAB PO SCH (09:17)
[2016-09-25] MEDS: PANTOPRAZOLE SODIUM 40 MG VIAL IV SCH (09:18)
[2016-09-25] MEDS: BUDESONIDE-FORMOTEROL 160/4.5 MCG INHALER INH SCH ×2 (09:18→20:18)
[2016-09-25] MEDS: TIOTROPIUM BROMIDE 18 MCG INH INH SCH (09:18)
--- NOTE | 2016-09-25 10:38 | HHI.NPPN ---
Subjective History of Present Illness 86-year-old male with past medical history of atrial fibrillation, ischemic heart disease, congestive heart failure, chronic obstructive pulmonary disease, with low ejection fraction of 20%, chronic kidney disease who came to the hospital with complaint of worsening shortness of breath. I was called to see the patient because of elevated BUN and creatinine. The patient has BUN of 65 and creatinine of 2.4 on presentation. Previously he had creatinine of 1.2-1.4 most of the time in the past. Additional Remarks Patient is alert, sitting and eating breakfast, with nasal cannula. Review of Systems General Constitutional: Fatigue Respiratory Lungs: SOB, Sputum, Wheeze Cardiovascular Cardiac: Edema, GRACIA Objective Data Data 09/24/16 09/25/16 19:00 07:00 Intake Total 600 ml 580 ml Output Total 850 ml 600 ml Balance -250 ml -20 ml Intake Oral 600 ml 480 ml IV Total 0 ml 100 ml Output Urine Total 850 ml 600 ml # Bowel Movements 1 3 Vital Signs Date Time Temp Pulse Resp B/P Pulse Ox O2 Delivery O2 Flow Rate FiO2 09/25/16 08:00 96.0 70 18 106/71 94 09/25/16 00:02 99 50 09/25/16 00:00 96.0 72 19 118/72 92 09/24/16 21:44 Nasal Cannula 4.00 Humidified 09/24/16 21:35 Nasal Cannula 4.00 09/24/16 20:00 96.8 80 19 132/72 93 09/24/16 12:00 98.2 82 20 118/74 91 -: 09/25/16 0458 09/25/16 0458 Physical Exam General Appearance: No Acute Distress, Comfortable Eyes Eye Exam: Pupils Equal Throat Throat Exam: Oral Mucosa Rein[place] & Moist Neck Neck Exam: Neck Supple Pulmonary Resp Exam: Crackles, Rhonchi, Decreased Bases, Diminished Breath Sounds Cardiology CV Exam: Regular, Normal Sinus Rhythm Gastrointestinal/Abdomen GI Exam: Soft, Non-Tender Extremeties Extremities Exam: Trace Edema Neurologic Neuro Exam: Alert, Awake, Oriented Psychiatric Psych Exam: Appropriate Responses Assessment/Plan Assessment Summary: [place]/Acute Renal Failure, Fluid/Volume Overload, CHF, CKD Stage III Problem List: (1) CHF (congestive heart failure) (2) Elevated INR (3) Acute hypoxemic respiratory failure (4) A-fib (5) Gnuem-sv-yssouub kidney injury Plan Urine out put is adequate. Creatinine is 1.8, possibly his baseline. Continue antibiotics. Echo results noted, cardiology following. Avoid Nephrotoxins. Need to restrict salt and fluid intake, explained to the patient. Bumex changed to PO. Increase WBC, could be due to steroid. Problem Qualifiers (1) CHF (congestive heart failure): (2) A-fib: Qualified Code: I48.2 - Chronic atrial fibrillation Tenzin Cobos MD Sep 25, 2016 10:38
--- NOTE | 2016-09-25 10:49 | HHI.PR ---
Subjective Remarks f/u for SOB. Patient c/o sore throat due to oxygen. Otherwise no complaints. denied any SOB, CP or cough. Objective Vitals Vital Signs Date Time Temp Pulse Resp B/P Pulse Ox O2 Delivery O2 Flow Rate FiO2 09/25/16 08:00 96.0 70 18 106/71 94 09/25/16 00:02 99 50 09/25/16 00:00 96.0 72 19 118/72 92 09/24/16 21:44 Nasal Cannula 4.00 Humidified 09/24/16 21:35 Nasal Cannula 4.00 09/24/16 20:00 96.8 80 19 132/72 93 09/24/16 12:00 98.2 82 20 118/74 91 I/O 09/24/16 09/24/16 09/24/16 09/25/16 09/25/16 09/25/16 07:00 15:00 23:00 07:00 15:00 23:00 Intake Total 90 ml 600 ml 340 ml 240 ml Output Total 400 ml 850 ml 150 ml 450 ml Balance -310 ml -250 ml 190 ml -210 ml Intake Oral 90 ml 600 ml 240 ml 240 ml IV Total 0 ml 0 ml 100 ml 0 ml Output Urine Total 400 ml 850 ml 150 ml 450 ml # Bowel Movements 0 1 2 1 Result Diagram: 09/25/168 09/25/168 Objective Remarks gen NAD Resp distant lung sounds Abd soft NDNT CV RRR. no r/m/g Medications and IVs Current Medications IV Flush (NS Flush) 2 ml UNSCH PRN IVF FLUSH AFTER USING IV ACCESS Last administered on 09/23/16 19:48; Start 09/19/16 at 12:00 Albuterol Sulfate 2.5 mg 2.5 mg Q15M INH Last administered on 09/19/16 12:24; Start 09/19/16 at 12:00; Stop 09/19/16 at 12:31; Status DC Ceftriaxone Sodium 1000 mg/ Sodium Chloride 100 ml @ 200 mls/hr ONCE ONCE IV Last administered on 09/19/16 13:44; Start 09/19/16 at 13:15; Stop 09/19/16 at 13:44; Status DC Azithromycin/ Sodium Chloride (Zithromax Inj/ NS 250 ml Inj) 250 ml @ 250 mls/ hr ONCE ONCE IV Last administered on 09/19/16 13:44; Start 09/19/16 at 13:15 ; Stop 09/19/16 at 14:14; Status DC Furosemide 40 mg 40 mg ONCE ONCE IV PUSH Last administered on 09/19/16 13:43 ; Start 09/19/16 at 13:15; Stop 09/19/16 at 13:16; Status DC Phytonadione/ Sodium Chloride (Vitamin K Inj/ NS Inj) 51 ml @ 102 mls/hr ONCE ONCE IV Last administered on 09/19/16 14:03; Start 09/19/16 at 13:30; Stop at 13:59; Status DC Pantoprazole Sodium (Protonix Inj) 40 mg DAILY IV Last administered on 09:18; Start 09/19/16 at 13:45 Albuterol/ Ipratropium (Duoneb Neb) 1 ampule Q4HR NEB INH Last administered on 09/22/16 16:34; Start 09/19/16 at 16:00; Stop 09/22/16 at 17:32; Status DC Albuterol/ Ipratropium (Duoneb Neb) 1 ampule Q2HR NEB PRN INH WHEEZING; Start 09/19/16 at 13:45 Miscellaneous Information 1 Q361D XX ; Start 09/19/16 at 13:45 Chlorhexidine Gluconate (Chlorhexidine 2% Cloth) Taper DAILY@04 TOP Last administered on 09/21/16 04:00; Start 09/20/16 at 04:00; Stop 09/16/17 at 03:59 Chlorhexidine Gluconate (Chlorhexidine 2% Cloth) 3 pack UNSCH PRN TOP HYGIENIC CARE; Start 09/19/16 at 13:45 Dextrose (D50w (Vial) Inj) 25 ml UNSCH PRN IV PUSH HYPOGLYCEMIA-SEE COMMENTS; Start 09/19/16 at 13:45 Glucagon (Glucagon Inj) 1 mg UNSCH PRN OTHER HYPOGLYCEMIA-SEE COMMENTS; Start 09/19/16 at 13:45 Insulin Human Regular (NovoLIN R SUPPLEMENTAL SCALE) 1 Q6H SQ Last administered on 09/25/16 03:40; Start 09/19/16 at 14:00 Methylprednisolone Sodium Succinate 40 mg 40 mg Q8HR IV PUSH Last administered on 09/22/16 14:59; Start 09/19/16 at 14:00; Stop 09/22/16 at 17:33; Status DC Ceftriaxone Sodium 1000 mg/ Sodium Chloride 100 ml @ 200 mls/hr Q24H IV ; Start 09/19/16 at 14:00; Stop 09/19/16 at 14:29; Status DC Azithromycin 500 mg/Sodium Chloride 250 ml @ 250 mls/hr Q24H IV Last administered on 09/24/16 14:06; Start 09/20/16 at 14:00 Ceftriaxone Sodium/Sodium Chloride (Rocephin Inj/NS Inj) 100 ml @ 200 mls/hr Q24H IV Last administered on 09/20/16 13:41; Start 09/20/16 at 14:00; Stop at 16:06; Status DC Levothyroxine Sodium (Synthroid) 25 mcg DAILY@0600 PO Last administered on 09/25 05:27; Start 09/20/16 at 06:00 Pneumococcal Polyvalent Vaccine (Pneumovax-23 Inj) 25 mcg ONCE ONCE IM Last administered on 09/20/16 09:12; Start 09/20/16 at 10:00; Stop 09/20/16 at 10:01 ; Status DC Allopurinol (Zyloprim) 100 mg DAILY PO Last administered on 09/25/16 09:00; Start 09/20/16 at 09:00 Cholecalciferol (Vitamin D3) 1,000 units DAILY PO Last administered on 09:17; Start 09/20/16 at 09:00 Carvedilol (Coreg) 3.125 mg Q12HR PO Last administered on 09/21/16 21:44; Start 09/20/16 at 09:00; Stop 09/22/16 at 08:08; Status DC Bumetanide (Bumex Inj) 1 mg ONCE ONCE IV PUSH Last administered on 09/20/16 15:45; Start 09/20/16 at 15:15; Stop 09/20/16 at 15:16; Status DC Bumetanide (Bumex Inj) 1 mg BID@09,18 IV PUSH Last administered on 09/24/16 09 :11; Start 09/21/16 at 18:00; Stop 09/24/16 at 12:08; Status DC Bumetanide 1 mg 1 mg ONCE ONCE IV PUSH Last administered on 09/21/16 13:23; Start 09/21/16 at 11:00; Stop 09/21/16 at 11:01; Status DC Ceftriaxone Sodium/Sodium Chloride (Rocephin Inj/NS Inj) 100 ml @ 200 mls/hr Q24H IV Last administered on 09/24/16 17:06; Start 09/21/16 at 18:00 Carvedilol (Coreg) 6.25 mg Q12HR PO Last administered on 09/24/16 19:25; Start 09/22/16 at 09:00 Warfarin Sodium 1 mg 1 mg DAILY@16 PO Last administered on 09/23/16 17:23; Start 09/22/16 at 16:00; Stop 09/25/16 at 09:06; Status DC Pharmacy Profile Note (Coumadin Consult Pharmacy) 0 ml @ 0 mls/hr UNSCH OTHER ; Start 09/22/16 at 08:30 Patient Medication Teaching (Coumadin Booklet) 1 ONCE ONCE XX Last administered on 09/22/16 16:00; Start 09/22/16 at 16:00; Stop 09/22/16 at 16:01 ; Status DC Budesonide/ Formoterol Fumarate (Symbicort 160-4.5 Inh) 1 puff Q12HR INH Last administered on 09/25/16 09:18; Start 09/22/16 at 09:00 Tiotropium [place] (Spiriva Inh) 18 mcg DAILY INH Last administered on 09:18; Start 09/22/16 at 09:00 Albuterol/ Ipratropium (Duoneb Neb) 1 ampule Q6HR NEB INH Last administered on 09/25/16 04:07; Start 09/22/16 at 22:00 Methylprednisolone Sodium Succinate (SoluMEDROL INJ) 40 mg Q12HR IV PUSH Last administered on 09/25/16 09:16; Start 09/22/16 at 21:00 Warfarin Sodium (Coumadin) 1 mg ONCE ONCE PO Last administered on 09/23/16 17 :23; Start 09/23/16 at 16:00; Stop 09/23/16 at 16:01; Status DC Warfarin Sodium (Coumadin) 2.5 mg ONCE ONCE PO Last administered on 09/24/16 16:57; Start 09/24/16 at 16:00; Stop 09/24/16 at 16:01; Status DC Bumetanide (Bumetanide) 2 mg DAILY PO Last administered on 09/25/16 09:17; Start 09/25/16 at 09:00 Warfarin Sodium (Coumadin) 2 mg DAILY@16 PO ; Start 09/25/16 at 16:00 A/P Assessment and Plan Acute hypoxemic and hypercapnic respiratory failure -due to combination of PNA and CHF. -improving. see treatment as below. Right-sided pneumonia. Moderate to large R pleural effusion -s/p thoracentesis on 09/21 -will d/c rocephin and azithromycin and start doxycycline. -d/c solumedrol and start prednisone. Decompensated acute on chronic systolic heart failure -change to PO bumex since improved drastically. - Coreg 3.125mg BID Echo showed EF 20-25%, diffuse hypokinesis, mod-severe pulm HTN with PAP 63mmHg -moving consultant ff. Acute chronic kidney disease -due to CHF -improving. - Monitor renal function, I's and O's, and avoid nephrotoxins. -Renal ff Dr. Cobos. -Renal US: Right sided renal cysts. Nonobstructing calculus lower pole left kidney. -On Allopurinol for Gout. change to PO bumex. Coagulopathy secondary to Coumadin toxicity -Monitor CBC and coags. s/p vitamin-K 10 mg IV push x1 in the ED for INR 14.5 - Pharmacy to dose UTI Klebsiella -on antibiotics. pansensitive. Atrial fibrillation/Peripheral vascular disease/History of diabetes mellitus/ Coronary artery disease/hypothyroidism -home medication resumed. GI prophylaxis with Protonix 40 mg daily. DVT prophylaxis with SCDs/resume Coumadin today Dispo: will d/c IV meds since patient clincally is doing well and see if he continues to do well on PO medication. Patient most likely will need to be d/c to SNF. d/w his nurse and case management. Janet Molina MD Sep 25, 2016 10:49
[2016-09-25] MEDS: predniSONE 20 MG TAB PO SCH ×2 (12:00→20:17)
[2016-09-25] MEDS: DOXYCYCLINE HYCLATE 100 MG TAB PO SCH ×2 (12:00→20:17)
[2016-09-25] MEDS: WARFARIN SOD 2 MG TAB PO SCH (16:54)
--- NOTE | 2016-09-25 18:43 | HHI.PR ---
Subjective Remarks 86 YOWM with COPD,CHF,CMP On NC, mild sob Cough, small amount of sp no fever Objective Vital Signs Vital Signs Date Time Temp Pulse Resp B/P Pulse Ox O2 Delivery O2 Flow Rate FiO2 09/25/16 16:00 96.2 88 20 136/58 92 09/25/16 12:00 96.0 99 18 126/87 92 09/25/16 10:45 94 Nasal Cannula 4.00 09/25/16 08:00 96.0 70 18 106/71 94 09/25/16 00:02 99 50 09/25/16 00:00 96.0 72 19 118/72 92 09/24/16 21:44 Nasal Cannula 4.00 Humidified 09/24/16 21:35 Nasal Cannula 4.00 09/24/16 20:00 96.8 80 19 132/72 93 I/O 09/24/16 09/24/16 09/24/16 09/25/16 09/25/16 09/25/16 07:00 15:00 23:00 07:00 15:00 23:00 Intake Total 90 ml 600 ml 340 ml 240 ml 480 ml Output Total 400 ml 850 ml 150 ml 450 ml 500 ml Balance -310 ml -250 ml 190 ml -210 ml -20 ml Intake Oral 90 ml 600 ml 240 ml 240 ml 480 ml IV Total 0 ml 0 ml 100 ml 0 ml Output Urine Total 400 ml 850 ml 150 ml 450 ml 500 ml # Bowel Movements 0 1 2 1 Result Diagram: 09/25/16 0458 09/25/16 0458 Objective Remarks GENERAL: Elderly male mild sob SKIN: Warm and dry. HEAD: Normocephalic. EYES: No scleral icterus. No injection or drainage. NECK: Supple, trachea midline. No JVD or lymphadenopathy. CARDIOVASCULAR: Regular rate and rhythm without murmurs, gallops, or rubs. RESPIRATORY: Breath sounds equal bilaterally. No accessory muscle use. GASTROINTESTINAL: Abdomen soft, non-tender, nondistended. MUSCULOSKELETAL: No cyanosis, or edema. BACK: Nontender without obvious deformity. No CVA tenderness. A/P Assessment and Plan COPD Basal infilt CHF CMP PHTN CLL PLAN: Cont Abx Doxy Aerosol nebs Symbicort 2 puffs bid Diurease with Bumex Wean 02 Daniel Pacheco MD Sep 25, 2016 18:42
[2016-09-25] MEDS: CARVEDILOL 3.125 MG TAB PO SCH (20:17)
[2016-09-26] VITALS (8 sets, daily range): BP systolic 133–150; BP diastolic 66–77; PULSE 78–103; RESP 17–20; TEMP 96.2–97; O2SAT 92–99
[2016-09-26] MEDS: INSULIN NovoLIN REGULAR SUPPLEMENTAL SCALE SQ SCH ×4 (02:00→21:58)
[2016-09-26] MEDS: RESP: ALBUTEROL 2.5 MG/IPRATROPIUM 0.5 MG NEB (SCH) INH ×4 (03:32→21:07)
[2016-09-26] MEDS: CHLORHEXIDINE GLUCONATE 2 % 1 PACK (2 CLOTHS) TOP SCH (04:00)
[2016-09-26 05:29] LABS: MEAN CELL VOLUME 95.9 FL (80.0-100.0); MEAN CORPUSCULAR HEMOGLOBIN 31.3 PG (27.0-34.0); MEAN CORPUSCULAR HGB CONC 32.6 % (32.0-36.0); PLATELET COUNT 140 TH/MM3 (150-450); RED BLOOD COUNT 5.11 MIL/MM3 (4.50-5.90); RED CELL DISTRIBUTION WIDTH 16.5 % (11.6-17.2); WHITE BLOOD COUNT 41.2 TH/MM3 (4.0-11.0)
[2016-09-26 05:34] LABS: INTERNATIONAL NORMALIZED RATIO 1.7 RATIO; PROTHROMBIN TIME - PATIENT 19.7 SEC (9.8-11.6)
[2016-09-26 05:35] LABS: REVIEW FLAG FINAL
[2016-09-26] MEDS: LEVOTHYROXINE SODIUM 25 MCG TAB PO SCH (05:57)
[2016-09-26 06:00] LABS: BICARBONATE 29.8 MEQ/L (21.0-32.0); POTASSIUM 4.8 MEQ/L (3.5-5.1)
[2016-09-26] MEDS: CARVEDILOL 3.125 MG TAB PO SCH ×2 (08:28→21:51)
[2016-09-26] MEDS: DOXYCYCLINE HYCLATE 100 MG TAB PO SCH ×2 (08:29→21:51)
[2016-09-26] MEDS: BUMETANIDE 1 MG TAB PO SCH (08:29)
[2016-09-26] MEDS: predniSONE 20 MG TAB PO SCH ×2 (08:29→21:51)
[2016-09-26] MEDS: CHOLECALCIFEROL (VIT D3) 1000 UNIT TAB PO SCH (08:29)
[2016-09-26] MEDS: PANTOPRAZOLE SODIUM 40 MG VIAL IV SCH (08:31)
[2016-09-26] MEDS: TIOTROPIUM BROMIDE 18 MCG INH INH SCH (08:32)
[2016-09-26] MEDS: ALLOPURINOL 100 MG TAB PO SCH (08:32)
[2016-09-26] MEDS: BUDESONIDE-FORMOTEROL 160/4.5 MCG INHALER INH SCH ×2 (08:32→21:52)
--- NOTE | 2016-09-26 10:56 | HHI.NPPN ---
Subjective History of Present Illness 86-year-old male with past medical history of atrial fibrillation, ischemic heart disease, congestive heart failure, chronic obstructive pulmonary disease, with low ejection fraction of 20%, chronic kidney disease who came to the hospital with complaint of worsening shortness of breath. I was called to see the patient because of elevated BUN and creatinine. The patient has BUN of 65 and creatinine of 2.4 on presentation. Previously he had creatinine of 1.2-1.4 most of the time in the past. Additional Remarks Patient is alert, no SOB, has trouble passing the urine and it is dribbling. Review of Systems General Constitutional: Fatigue Respiratory Lungs: SOB, Sputum, Wheeze Cardiovascular Cardiac: Edema, GRACIA Objective Data Data 09/25/16 09/26/16 19:00 07:00 Intake Total 480 ml 480 ml Output Total 500 ml 800 ml Balance -20 ml -320 ml Intake Oral 480 ml 480 ml IV Total 0 ml Output Urine Total 500 ml 800 ml # Bowel Movements 1 Vital Signs Date Time Temp Pulse Resp B/P Pulse Ox O2 Delivery O2 Flow Rate FiO2 09/26/16 09:53 92 09/26/16 09:53 92 Nasal Cannula 3.00 09/26/16 08:35 Nasal Cannula 3.00 Humidified 09/26/16 08:17 96.2 78 18 142/74 92 09/26/16 00:00 96.8 84 20 144/66 95 09/25/16 21:13 92 Nasal Cannula 4.00 09/25/16 20:00 96.4 80 21 118/60 93 09/25/16 16:00 96.2 88 20 136/58 92 09/25/16 12:00 96.0 99 18 126/87 92 -: 09/26/16 0515 09/26/16 0515 Physical Exam General Appearance: No Acute Distress, Comfortable Eyes Eye Exam: Pupils Equal Throat Throat Exam: Oral Mucosa [place] & Moist Neck Neck Exam: Neck Supple Pulmonary Resp Exam: Crackles, Rhonchi, Decreased Bases, Diminished Breath Sounds Cardiology CV Exam: Regular, Normal Sinus Rhythm Gastrointestinal/Abdomen GI Exam: Soft, Non-Tender Extremeties Extremities Exam: Trace Edema Neurologic Neuro Exam: Alert, Awake, Oriented Psychiatric Psych Exam: Appropriate Responses Assessment/Plan Assessment Summary: [place]/Acute Renal Failure, Fluid/Volume Overload, CHF, CKD Stage III Problem List: (1) CHF (congestive heart failure) (2) Elevated INR (3) Acute hypoxemic respiratory failure (4) A-fib (5) [id number] kidney injury Plan Urine out put is adequate. Creatinine is 1.8, possibly his baseline. Continue antibiotics. Echo results noted, cardiology following. Avoid Nephrotoxins. Need to restrict salt and fluid intake, explained to the patient. Bumex changed to PO. Increase WBC, could be due to steroid. Bladder scan and possibly need Godfrey's catheter. Problem Qualifiers (1) CHF (congestive heart failure): (2) A-fib: Qualified Code: I48.2 - Chronic atrial fibrillation Tenzin Cobos MD Sep 26, 2016 10:56
--- NOTE | 2016-09-26 10:58 | HHI.PR ---
Subjective Remarks f/u for SOB patient denied any SOB but complains of not urinating enough. He stated he is dribbling urine. + mild burning with urination. Denied any nocturia. remains afebrile. no cough. Objective Vitals Vital Signs Date Time Temp Pulse Resp B/P Pulse Ox O2 Delivery O2 Flow Rate FiO2 09/26/16 09:53 92 09/26/16 09:53 92 Nasal Cannula 3.00 09/26/16 08:35 Nasal Cannula 3.00 Humidified 09/26/16 08:17 96.2 78 18 142/74 92 09/26/16 00:00 96.8 84 20 144/66 95 09/25/16 21:13 92 Nasal Cannula 4.00 09/25/16 20:00 96.4 80 21 118/60 93 09/25/16 16:00 96.2 88 20 136/58 92 09/25/16 12:00 96.0 99 18 126/87 92 I/O 09/25/16 09/25/16 09/25/16 09/26/16 09/26/16 09/26/16 07:00 15:00 23:00 07:00 15:00 23:00 Intake Total 240 ml 480 ml 240 ml 240 ml Output Total 450 ml 500 ml 300 ml 500 ml Balance -210 ml -20 ml -60 ml -260 ml Intake Oral 240 ml 480 ml 240 ml 240 ml IV Total 0 ml 0 ml Output Urine Total 450 ml 500 ml 300 ml 500 ml # Bowel Movements 1 1 0 Result Diagram: 09/26/1615 09/26/16 0515 Objective Remarks gen NAD Resp distant lung sounds with decrease BS in the RLL. Abd soft NDNT CV RRR. no r/m/g Medications and IVs Current Medications IV Flush (NS Flush) 2 ml UNSCH PRN IVF FLUSH AFTER USING IV ACCESS Last administered on 09/23/16 19:48; Start 09/19/16 at 12:00 Albuterol Sulfate 2.5 mg 2.5 mg Q15M INH Last administered on 09/19/16 12:24; Start 09/19/16 at 12:00; Stop 09/19/16 at 12:31; Status DC Ceftriaxone Sodium 1000 mg/ Sodium Chloride 100 ml @ 200 mls/hr ONCE ONCE IV Last administered on 09/19/16 13:44; Start 09/19/16 at 13:15; Stop 09/19/16 at 13:44; Status DC Azithromycin/ Sodium Chloride (Zithromax Inj/ NS 250 ml Inj) 250 ml @ 250 mls/ hr ONCE ONCE IV Last administered on 09/19/16 13:44; Start 09/19/16 at 13:15 ; Stop 09/19/16 at 14:14; Status DC Furosemide 40 mg 40 mg ONCE ONCE IV PUSH Last administered on 09/19/16 13:43 ; Start 09/19/16 at 13:15; Stop 09/19/16 at 13:16; Status DC Phytonadione/ Sodium Chloride (Vitamin K Inj/ NS Inj) 51 ml @ 102 mls/hr ONCE ONCE IV Last administered on 09/19/16 14:03; Start 09/19/16 at 13:30; Stop at 13:59; Status DC Pantoprazole Sodium (Protonix Inj) 40 mg DAILY IV Last administered on 08:31; Start 09/19/16 at 13:45 Albuterol/ Ipratropium (Duoneb Neb) 1 ampule Q4HR NEB INH Last administered on 09/22/16 16:34; Start 09/19/16 at 16:00; Stop 09/22/16 at 17:32; Status DC Albuterol/ Ipratropium (Duoneb Neb) 1 ampule Q2HR NEB PRN INH WHEEZING; Start 09/19/16 at 13:45 Miscellaneous Information 1 Q361D XX ; Start 09/19/16 at 13:45 Chlorhexidine Gluconate (Chlorhexidine 2% Cloth) Taper DAILY@04 TOP Last administered on 09/21/16 04:00; Start 09/20/16 at 04:00; Stop 09/16/17 at 03:59 Chlorhexidine Gluconate (Chlorhexidine 2% Cloth) 3 pack UNSCH PRN TOP HYGIENIC CARE; Start 09/19/16 at 13:45 Dextrose (D50w (Vial) Inj) 25 ml UNSCH PRN IV PUSH HYPOGLYCEMIA-SEE COMMENTS; Start 09/19/16 at 13:45 Glucagon (Glucagon Inj) 1 mg UNSCH PRN OTHER HYPOGLYCEMIA-SEE COMMENTS; Start 09/19/16 at 13:45 Insulin Human Regular (NovoLIN R SUPPLEMENTAL SCALE) 1 Q6H SQ Last administered on 09/25/16 20:20; Start 09/19/16 at 14:00 Methylprednisolone Sodium Succinate 40 mg 40 mg Q8HR IV PUSH Last administered on 09/22/16 14:59; Start 09/19/16 at 14:00; Stop 09/22/16 at 17:33; Status DC Ceftriaxone Sodium 1000 mg/ Sodium Chloride 100 ml @ 200 mls/hr Q24H IV ; Start 09/19/16 at 14:00; Stop 09/19/16 at 14:29; Status DC Azithromycin 500 mg/Sodium Chloride 250 ml @ 250 mls/hr Q24H IV Last administered on 09/24/16 14:06; Start 09/20/16 at 14:00; Stop 09/25/16 at 10:45 ; Status DC Ceftriaxone Sodium/Sodium Chloride (Rocephin Inj/NS Inj) 100 ml @ 200 mls/hr Q24H IV Last administered on 09/20/16 13:41; Start 09/20/16 at 14:00; Stop at 16:06; Status DC Levothyroxine Sodium (Synthroid) 25 mcg DAILY@0600 PO Last administered on 09/26 05:57; Start 09/20/16 at 06:00 Pneumococcal Polyvalent Vaccine (Pneumovax-23 Inj) 25 mcg ONCE ONCE IM Last administered on 09/20/16 09:12; Start 09/20/16 at 10:00; Stop 09/20/16 at 10:01 ; Status DC Allopurinol (Zyloprim) 100 mg DAILY PO Last administered on 09/26/16 08:32; Start 09/20/16 at 09:00 Cholecalciferol (Vitamin D3) 1,000 units DAILY PO Last administered on 08:29; Start 09/20/16 at 09:00 Carvedilol (Coreg) 3.125 mg Q12HR PO Last administered on 09/21/16 21:44; Start 09/20/16 at 09:00; Stop 09/22/16 at 08:08; Status DC Bumetanide (Bumex Inj) 1 mg ONCE ONCE IV PUSH Last administered on 09/20/16 15:45; Start 09/20/16 at 15:15; Stop 09/20/16 at 15:16; Status DC Bumetanide (Bumex Inj) 1 mg BID@09,18 IV PUSH Last administered on 09/24/16 09 :11; Start 09/21/16 at 18:00; Stop 09/24/16 at 12:08; Status DC Bumetanide 1 mg 1 mg ONCE ONCE IV PUSH Last administered on 09/21/16 13:23; Start 09/21/16 at 11:00; Stop 09/21/16 at 11:01; Status DC Ceftriaxone Sodium/Sodium Chloride (Rocephin Inj/NS Inj) 100 ml @ 200 mls/hr Q24H IV Last administered on 09/24/16 17:06; Start 09/21/16 at 18:00; Stop at 10:46; Status DC Carvedilol (Coreg) 6.25 mg Q12HR PO Last administered on 09/24/16 19:25; Start 09/22/16 at 09:00; Stop 09/25/16 at 12:28; Status DC Warfarin Sodium 1 mg 1 mg DAILY@16 PO Last administered on 09/23/16 17:23; Start 09/22/16 at 16:00; Stop 09/25/16 at 09:06; Status DC Pharmacy Profile Note (Coumadin Consult Pharmacy) 0 ml @ 0 mls/hr UNSCH OTHER ; Start 09/22/16 at 08:30 Patient Medication Teaching (Coumadin Booklet) 1 ONCE ONCE XX Last administered on 09/22/16 16:00; Start 09/22/16 at 16:00; Stop 09/22/16 at 16:01 ; Status DC Budesonide/ Formoterol Fumarate (Symbicort 160-4.5 Inh) 1 puff Q12HR INH Last administered on 09/26/16 08:32; Start 09/22/16 at 09:00 Tiotropium [place] (Spiriva Inh) 18 mcg DAILY INH Last administered on 08:32; Start 09/22/16 at 09:00 Albuterol/ Ipratropium (Duoneb Neb) 1 ampule Q6HR NEB INH Last administered on 09/26/16 09:51; Start 09/22/16 at 22:00 Methylprednisolone Sodium Succinate (SoluMEDROL INJ) 40 mg Q12HR IV PUSH Last administered on 09/25/16 09:16; Start 09/22/16 at 21:00; Stop 09/25/16 at 10:46 ; Status DC Warfarin Sodium (Coumadin) 1 mg ONCE ONCE PO Last administered on 09/23/16 17 :23; Start 09/23/16 at 16:00; Stop 09/23/16 at 16:01; Status DC Warfarin Sodium (Coumadin) 2.5 mg ONCE ONCE PO Last administered on 09/24/16 16:57; Start 09/24/16 at 16:00; Stop 09/24/16 at 16:01; Status DC Bumetanide (Bumetanide) 2 mg DAILY PO Last administered on 09/26/16 08:29; Start 09/25/16 at 09:00 Warfarin Sodium (Coumadin) 2 mg DAILY@16 PO Last administered on 09/25/16 16: 54; Start 09/25/16 at 16:00 Prednisone (Deltasone) 20 mg BID PO Last administered on 09/26/16 08:29; Start 09/25/16 at 12:00 Doxycycline Hyclate (Vibratab) 100 mg Q12HR PO Last administered on 09/26/16 08:29; Start 09/25/16 at 12:00 Carvedilol (Coreg) 3.125 mg Q12HR PO Last administered on 09/26/16 08:28; Start 09/25/16 at 21:00 A/P Assessment and Plan Acute hypoxemic and hypercapnic respiratory failure -due to combination of PNA and CHF. -improving. see treatment as below. -patient clinically doing well but due to decrease BS on RLL which maybe due to effort will get CXR. ? dysuria -patient c/o not making enough urine but looking at outpatient he is making adequate urine. -will get UA. Right-sided pneumonia. Moderate to large R pleural effusion -s/p thoracentesis on 09/21 - d/bridger rocephin and azithromycin and on doxycycline. -d/c solumedrol and on prednisone. Decompensated acute on chronic systolic heart failure -onPO bumex. improved drastically. 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 Acute chronic kidney disease -due to CHF -improving. - Monitor renal function, I's and O's, and avoid nephrotoxins. -Renal ff Dr. Cobos. -Renal US: Right sided renal cysts. Nonobstructing calculus lower pole left kidney. -On Allopurinol for Gout. change to PO bumex. Coagulopathy secondary to Coumadin toxicity -Monitor CBC and coags. s/p vitamin-K 10 mg IV push x1 in the ED for INR 14.5 - Pharmacy to dose UTI Klebsiella -on antibiotics. pansensitive. Atrial fibrillation/Peripheral vascular disease/History of diabetes mellitus/ Coronary artery disease/hypothyroidism -home medication resumed. GI prophylaxis with Protonix 40 mg daily. DVT prophylaxis with SCDs/resume Coumadin today Dispo: Doing well on PO medication. pending placement to SNF. Janet Molina MD Sep 26, 2016 10:58
--- NOTE | 2016-09-26 12:58 | RADRPT ---
EXAM DATE/TIME: 09/26/2016 11:34 [facility] COMPARISON: Prior study 09/23/16, use for comparison. INDICATIONS: Shortness of breath. MEDICAL HISTORY: Cardiovascular disease. Hypertension. Diabetic SURGICAL HISTORY: Pacemaker. ENCOUNTER: Subsequent ACUITY: 1 week PAIN SCORE: 0/10 LOCATION: Bilateral chest FINDINGS: A single view of the chest demonstrates there is worsening consolidation in the right lower lobe. It is a combination of air space disease and a moderate sized pleural effusion. Right apex is clear. Left lung is clear. Left subclavian pacer in good position. Heart remains enlarged. CONCLUSION: Worse consolidation right lower lobe since previous film. A combination of pleural effusion and air space disease. Mat Maurice MD on September 26, 2016 at 12:49 Board Certified Radiologist. This report was verified electronically.
[2016-09-26 13:02] LABS: BLOOD, URINE MOD (NEG); COMMENT (UR) CULT NOT INDICATED; CULTURE IF INDICATED CULT NOT INDICATED; GLUCOSE,URINE NEG (NEG); HYALINE CAST, URINE 12 /lpf (RARE); KETONE, URINE NEG (NEG); MUCUS URINE FEW /lpf (OCC); NITRITE,URINE NEG (NEG); URINE COLOR YELLOW (YELLW/STRAW)
[2016-09-26] MEDS: WARFARIN SOD 2 MG TAB PO SCH (15:18)
--- NOTE | 2016-09-26 19:49 | HHI.PR ---
Subjective Remarks 86 YOWM with COPD,CHF,CMP On NC, mild sob Cough, small amount of sp no fever Breathing better Objective Vital Signs Vital Signs Date Time Temp Pulse Resp B/P Pulse Ox O2 Delivery O2 Flow Rate FiO2 09/26/16 16:04 96.8 103 17 150/77 92 09/26/16 15:36 99 Nasal Cannula 3.00 09/26/16 12:30 97.0 88 19 133/70 92 09/26/16 12:12 Nasal Cannula 3.00 Humidified 09/26/16 09:53 92 09/26/16 09:53 92 Nasal Cannula 3.00 09/26/16 08:35 Nasal Cannula 3.00 Humidified 09/26/16 08:17 96.2 78 18 142/74 92 09/26/16 00:00 96.8 84 20 144/66 95 09/25/16 21:13 92 Nasal Cannula 4.00 09/25/16 20:00 96.4 80 21 118/60 93 I/O 09/25/16 09/25/16 09/25/16 09/26/16 09/26/16 09/26/16 07:00 15:00 23:00 07:00 15:00 23:00 Intake Total 240 ml 480 ml 240 ml 240 ml 960 ml Output Total 450 ml 500 ml 300 ml 500 ml 510 ml Balance -210 ml -20 ml -60 ml -260 ml 450 ml Intake Oral 240 ml 480 ml 240 ml 240 ml 960 ml IV Total 0 ml 0 ml Output Urine Total 450 ml 500 ml 300 ml 500 ml 510 ml # Bowel Movements 1 1 0 2 Result Diagram: 09/26/16 0515 09/26/1615 Objective Remarks GENERAL: Elderly male mild sob SKIN: Warm and dry. HEAD: Normocephalic. EYES: No scleral icterus. No injection or drainage. NECK: Supple, trachea midline. No JVD or lymphadenopathy. CARDIOVASCULAR: Regular rate and rhythm without murmurs, gallops, or rubs. RESPIRATORY: Breath sounds equal bilaterally. No accessory muscle use. GASTROINTESTINAL: Abdomen soft, non-tender, nondistended. MUSCULOSKELETAL: No cyanosis, or edema. BACK: Nontender without obvious deformity. No CVA tenderness. A/P Assessment and Plan COPD Basal infilt CHF CMP PHTN CLL PLAN: Cont Abx Doxy Aerosol nebs Symbicort 2 puffs bid Diurease with Bumex Wean 02 Pred 20 mg bid. Daniel Pacheco MD Sep 26, 2016 19:49
[2016-09-27] VITALS: BP 124/62; PULSE 81; RESP 19; TEMP 96.8; O2SAT 94
[2016-09-27] MEDS: INSULIN NovoLIN REGULAR SUPPLEMENTAL SCALE SQ SCH ×5 (02:00→20:00)
[2016-09-27] MEDS: CHLORHEXIDINE GLUCONATE 2 % 1 PACK (2 CLOTHS) TOP SCH (02:43)
[2016-09-27 05:43] LABS: AUTOMATED NEUTROPHIL # 14.5 TH/MM3 (1.8-7.7); HEMATOCRIT 46.4 % (39.0-51.0); LYMPH % 64.2 % (9.0-44.0); LYMPHOCYTE # 27.8 TH/MM3 (1.0-4.8); MEAN CELL VOLUME 95.5 FL (80.0-100.0); MEAN CORPUSCULAR HEMOGLOBIN 31.5 PG (27.0-34.0); MONO % 2.4 % (0.0-8.0); NEUT % 33.4 % (16.0-70.0); PLATELET COUNT 143 TH/MM3 (150-450); RED BLOOD COUNT 4.86 MIL/MM3 (4.50-5.90); RED CELL DISTRIBUTION WIDTH 16.3 % (11.6-17.2); WHITE BLOOD COUNT 43.3 TH/MM3 (4.0-11.0)
[2016-09-27 05:49] LABS: HEMO FLAGS AUTO DIFF
[2016-09-27 05:51] LABS: INTERNATIONAL NORMALIZED RATIO 1.7 RATIO; PROTHROMBIN TIME - PATIENT 18.7 SEC (9.8-11.6)
[2016-09-27 06:13] LABS: BICARBONATE 31.7 MEQ/L (21.0-32.0)
[2016-09-27] MEDS: LEVOTHYROXINE SODIUM 25 MCG TAB PO SCH (06:49)
[2016-09-27] MEDS: DOXYCYCLINE HYCLATE 100 MG TAB PO SCH ×2 (07:47→21:41)
[2016-09-27] MEDS: CHOLECALCIFEROL (VIT D3) 1000 UNIT TAB PO SCH (07:47)
[2016-09-27] MEDS: CARVEDILOL 3.125 MG TAB PO SCH ×2 (07:47→21:41)
[2016-09-27] MEDS: predniSONE 20 MG TAB PO SCH ×2 (07:47→21:41)
[2016-09-27] MEDS: BUMETANIDE 1 MG TAB PO SCH (07:48)
[2016-09-27] MEDS: TIOTROPIUM BROMIDE 18 MCG INH INH SCH (07:48)
[2016-09-27] MEDS: ALLOPURINOL 100 MG TAB PO SCH (07:48)
[2016-09-27] MEDS: BUDESONIDE-FORMOTEROL 160/4.5 MCG INHALER INH SCH ×2 (07:48→21:43)
[2016-09-27] MEDS: PANTOPRAZOLE SODIUM 40 MG VIAL IV SCH (07:49)
[2016-09-27 08:00] VITALS: BP 131/77; PULSE 73; RESP 18; TEMP 97.7; O2SAT 95
[2016-09-27 08:24] LABS: BANDS 1 % (0-6); NEUTROPHIL # MANUAL DIFF 10.8 TH/MM3 (1.8-7.7); POLYS (SEG NEUTROPHILS) 24 % (16-70); WBC DIFF SAMPLE 100
[2016-09-27 08:25] LABS: OVALOCYTES 1+ (NORMAL); PLATELET ESTIMATE SMEAR NORMAL (NORMAL); PLATELET MORPHOLOGY NORMAL (NORMAL); SCAN/DIFF FINAL DIFF MANUAL; SMUDGE CELLS PRESENT PRESENT
[2016-09-27 09:26] VITALS: O2SAT 95
--- NOTE | 2016-09-27 10:09 | HHI.PR ---
Subjective Remarks f/u for SOB Patient denied any SOB. + cough with yellow sputum. He stated he feels like he still has sputum in his left LL. Otherwise he has no complaints. Continues to remain afebrile. Objective Vitals Vital Signs Date Time Temp Pulse Resp B/P Pulse Ox O2 Delivery O2 Flow Rate FiO2 09/27/16 08:00 97.7 73 18 131/77 95 09/27/16 07:52 Nasal Cannula 4.00 Humidified 09/27/16 00:00 96.8 81 19 124/62 94 09/26/16 20:00 96.8 88 20 138/72 95 09/26/16 19:00 95 Nasal Cannula 3.00 09/26/16 16:04 96.8 103 17 150/77 92 09/26/16 15:36 99 Nasal Cannula 3.00 09/26/16 12:30 97.0 88 19 133/70 92 09/26/16 12:12 Nasal Cannula 3.00 Humidified I/O 09/26/16 09/26/16 09/26/16 09/27/16 09/27/16 09/27/16 07:00 15:00 23:00 07:00 15:00 23:00 Intake Total 240 ml 960 ml 480 ml 240 ml Output Total 500 ml 510 ml 1300 ml 800 ml Balance -260 ml 450 ml -820 ml -560 ml Intake Oral 240 ml 960 ml 480 ml 240 ml Output Urine Total 500 ml 510 ml 1300 ml 800 ml # Bowel Movements 0 2 0 0 Result Diagram: 09/27/16 0455 09/27/16 0455 Objective Remarks gen NAD Resp distant lung sounds with decrease BS in the RLL. Abd soft NDNT CV RRR. no r/m/g Medications and IVs Current Medications IV Flush (NS Flush) 2 ml UNSCH PRN IVF FLUSH AFTER USING IV ACCESS Last administered on 09/23/16 19:48; Start 09/19/16 at 12:00 Albuterol Sulfate 2.5 mg 2.5 mg Q15M INH Last administered on 09/19/16 12:24; Start 09/19/16 at 12:00; Stop 09/19/16 at 12:31; Status DC Ceftriaxone Sodium 1000 mg/ Sodium Chloride 100 ml @ 200 mls/hr ONCE ONCE IV Last administered on 09/19/16 13:44; Start 09/19/16 at 13:15; Stop 09/19/16 at 13:44; Status DC Azithromycin/ Sodium Chloride (Zithromax Inj/ NS 250 ml Inj) 250 ml @ 250 mls/ hr ONCE ONCE IV Last administered on 09/19/16 13:44; Start 09/19/16 at 13:15 ; Stop 09/19/16 at 14:14; Status DC Furosemide 40 mg 40 mg ONCE ONCE IV PUSH Last administered on 09/19/16 13:43 ; Start 09/19/16 at 13:15; Stop 09/19/16 at 13:16; Status DC Phytonadione/ Sodium Chloride (Vitamin K Inj/ NS Inj) 51 ml @ 102 mls/hr ONCE ONCE IV Last administered on 09/19/16 14:03; Start 09/19/16 at 13:30; Stop at 13:59; Status DC Pantoprazole Sodium (Protonix Inj) 40 mg DAILY IV Last administered on 07:49; Start 09/19/16 at 13:45 Albuterol/ Ipratropium (Duoneb Neb) 1 ampule Q4HR NEB INH Last administered on 09/22/16 16:34; Start 09/19/16 at 16:00; Stop 09/22/16 at 17:32; Status DC Albuterol/ Ipratropium (Duoneb Neb) 1 ampule Q2HR NEB PRN INH WHEEZING; Start 09/19/16 at 13:45 Miscellaneous Information 1 Q361D XX ; Start 09/19/16 at 13:45 Chlorhexidine Gluconate (Chlorhexidine 2% Cloth) Taper DAILY@04 TOP Last administered on 09/21/16 04:00; Start 09/20/16 at 04:00; Stop 09/16/17 at 03:59 Chlorhexidine Gluconate (Chlorhexidine 2% Cloth) 3 pack UNSCH PRN TOP HYGIENIC CARE; Start 09/19/16 at 13:45 Dextrose (D50w (Vial) Inj) 25 ml UNSCH PRN IV PUSH HYPOGLYCEMIA-SEE COMMENTS; Start 09/19/16 at 13:45 Glucagon (Glucagon Inj) 1 mg UNSCH PRN OTHER HYPOGLYCEMIA-SEE COMMENTS; Start 09/19/16 at 13:45 Insulin Human Regular (NovoLIN R SUPPLEMENTAL SCALE) 1 Q6H SQ Last administered on 09/26/16 21:58; Start 09/19/16 at 14:00 Methylprednisolone Sodium Succinate 40 mg 40 mg Q8HR IV PUSH Last administered on 09/22/16 14:59; Start 09/19/16 at 14:00; Stop 09/22/16 at 17:33; Status DC Ceftriaxone Sodium 1000 mg/ Sodium Chloride 100 ml @ 200 mls/hr Q24H IV ; Start 09/19/16 at 14:00; Stop 09/19/16 at 14:29; Status DC Azithromycin 500 mg/Sodium Chloride 250 ml @ 250 mls/hr Q24H IV Last administered on 09/24/16 14:06; Start 09/20/16 at 14:00; Stop 09/25/16 at 10:45 ; Status DC Ceftriaxone Sodium/Sodium Chloride (Rocephin Inj/NS Inj) 100 ml @ 200 mls/hr Q24H IV Last administered on 09/20/16 13:41; Start 09/20/16 at 14:00; Stop at 16:06; Status DC Levothyroxine Sodium (Synthroid) 25 mcg DAILY@0600 PO Last administered on 06:49; Start 09/20/16 at 06:00 Pneumococcal Polyvalent Vaccine (Pneumovax-23 Inj) 25 mcg ONCE ONCE IM Last administered on 09/20/16 09:12; Start 09/20/16 at 10:00; Stop 09/20/16 at 10:01 ; Status DC Allopurinol (Zyloprim) 100 mg DAILY PO Last administered on 09/27/16 07:48; Start 09/20/16 at 09:00 Cholecalciferol (Vitamin D3) 1,000 units DAILY PO Last administered on 07:47; Start 09/20/16 at 09:00 Carvedilol (Coreg) 3.125 mg Q12HR PO Last administered on 09/21/16 21:44; Start 09/20/16 at 09:00; Stop 09/22/16 at 08:08; Status DC Bumetanide (Bumex Inj) 1 mg ONCE ONCE IV PUSH Last administered on 09/20/16 15:45; Start 09/20/16 at 15:15; Stop 09/20/16 at 15:16; Status DC Bumetanide (Bumex Inj) 1 mg BID@09,18 IV PUSH Last administered on 09/24/16 09 :11; Start 09/21/16 at 18:00; Stop 09/24/16 at 12:08; Status DC Bumetanide 1 mg 1 mg ONCE ONCE IV PUSH Last administered on 09/21/16 13:23; Start 09/21/16 at 11:00; Stop 09/21/16 at 11:01; Status DC Ceftriaxone Sodium/Sodium Chloride (Rocephin Inj/NS Inj) 100 ml @ 200 mls/hr Q24H IV Last administered on 09/24/16 17:06; Start 09/21/16 at 18:00; Stop at 10:46; Status DC Carvedilol (Coreg) 6.25 mg Q12HR PO Last administered on 09/24/16 19:25; Start 09/22/16 at 09:00; Stop 09/25/16 at 12:28; Status DC Warfarin Sodium 1 mg 1 mg DAILY@16 PO Last administered on 09/23/16 17:23; Start 09/22/16 at 16:00; Stop 09/25/16 at 09:06; Status DC Pharmacy Profile Note (Coumadin Consult Pharmacy) 0 ml @ 0 mls/hr UNSCH OTHER ; Start 09/22/16 at 08:30 Patient Medication Teaching (Coumadin Booklet) 1 ONCE ONCE XX Last administered on 09/22/16 16:00; Start 09/22/16 at 16:00; Stop 09/22/16 at 16:01 ; Status DC Budesonide/ Formoterol Fumarate (Symbicort 160-4.5 Inh) 1 puff Q12HR INH Last administered on 09/27/16 07:48; Start 09/22/16 at 09:00 Tiotropium [place] (Spiriva Inh) 18 mcg DAILY INH Last administered on 07:48; Start 09/22/16 at 09:00 Albuterol/ Ipratropium (Duoneb Neb) 1 ampule Q6HR NEB INH Last administered on 09/26/16 21:07; Start 09/22/16 at 22:00; Stop 09/26/16 at 22:00; Status DC Methylprednisolone Sodium Succinate (SoluMEDROL INJ) 40 mg Q12HR IV PUSH Last administered on 09/25/16 09:16; Start 09/22/16 at 21:00; Stop 09/25/16 at 10:46 ; Status DC Warfarin Sodium (Coumadin) 1 mg ONCE ONCE PO Last administered on 09/23/16 17 :23; Start 09/23/16 at 16:00; Stop 09/23/16 at 16:01; Status DC Warfarin Sodium (Coumadin) 2.5 mg ONCE ONCE PO Last administered on 09/24/16 16:57; Start 09/24/16 at 16:00; Stop 09/24/16 at 16:01; Status DC Bumetanide (Bumetanide) 2 mg DAILY PO Last administered on 09/27/16 07:48; Start 09/25/16 at 09:00 Warfarin Sodium (Coumadin) 2 mg DAILY@16 PO Last administered on 09/26/16 15: 18; Start 09/25/16 at 16:00 Prednisone (Deltasone) 20 mg BID PO Last administered on 09/27/16 07:47; Start 09/25/16 at 12:00 Doxycycline Hyclate (Vibratab) 100 mg Q12HR PO Last administered on 09/27/16 07 :47; Start 09/25/16 at 12:00 Carvedilol (Coreg) 3.125 mg Q12HR PO Last administered on 09/27/16 07:47; Start 09/25/16 at 21:00 Warfarin Sodium (Coumadin) 0.5 mg ONCE PO ; Start 09/27/16 at 16:00; Stop at 21:00 A/P Assessment and Plan Acute hypoxemic and hypercapnic respiratory failure -due to combination of PNA and CHF. -improving. see treatment as below. -repeat cxr on 09/27 showed increased right pleural effusion. Clinically patient continues to do well so will continues to monitor. ? dysuria -UA not impressive. -continues to monitor. Right-sided pneumonia. Moderate to large R pleural effusion -s/p thoracentesis on 09/21 - d/c rocephin and azithromycin -on doxycycline. -d/c solumedrol now on prednisone. 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 improved drastically. 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 Acute chronic kidney disease -due to CHF -improving. - Monitor renal function, I's and O's, and avoid nephrotoxins. -Renal ff Dr. Cobos. -Renal US: Right sided renal cysts. Nonobstructing calculus lower pole left kidney. -On Allopurinol for Gout. on PO bumex. Coagulopathy secondary to Coumadin toxicity -Monitor CBC and coags. s/p vitamin-K 10 mg IV push x1 in the ED for INR 14.5 - Pharmacy to dose. INR is 1.7 today. UTI Klebsiella -on antibiotics. pansensitive. Atrial fibrillation/Peripheral vascular disease/History of diabetes mellitus/ Coronary artery disease/hypothyroidism -home medication resumed. GI prophylaxis with Protonix 40 mg daily. DVT prophylaxis with SCDs/on coumadin. Dispo: Doing well on PO medication. pending placement to SNF. Janet Molina MD Sep 27, 2016 10:09
--- NOTE | 2016-09-27 10:17 | HHI.NPPN ---
Subjective History of Present Illness 86-year-old male with past medical history of atrial fibrillation, ischemic heart disease, congestive heart failure, chronic obstructive pulmonary disease, with low ejection fraction of 20%, chronic kidney disease who came to the hospital with complaint of worsening shortness of breath. I was called to see the patient because of elevated BUN and creatinine. The patient has BUN of 65 and creatinine of 2.4 on presentation. Previously he had creatinine of 1.2-1.4 most of the time in the past. Additional Remarks Patient is alert, no SOB,now with Godfrey's catheter, abd. pain is better. Review of Systems General Constitutional: Fatigue Respiratory Lungs: SOB, Sputum, Wheeze Cardiovascular Cardiac: Edema, GRACIA Objective Data Data 09/26/16 09/27/16 19:00 07:00 Intake Total 960 ml 720 ml Output Total 510 ml 2100 ml Balance 450 ml -1380 ml Intake Oral 960 ml 720 ml Output Urine Total 510 ml 2100 ml # Bowel Movements 2 0 Vital Signs Date Time Temp Pulse Resp B/P Pulse Ox O2 Delivery O2 Flow Rate FiO2 09/27/16 08:00 97.7 73 18 131/77 95 09/27/16 07:52 Nasal Cannula 4.00 Humidified 09/27/16 00:00 96.8 81 19 124/62 94 09/26/16 20:00 96.8 88 20 138/72 95 09/26/16 19:00 95 Nasal Cannula 3.00 09/26/16 16:04 96.8 103 17 150/77 92 09/26/16 15:36 99 Nasal Cannula 3.00 09/26/16 12:30 97.0 88 19 133/70 92 09/26/16 12:12 Nasal Cannula 3.00 Humidified -: 09/27/16 0455 09/27/16 0455 Physical Exam General Appearance: No Acute Distress, Comfortable Eyes Eye Exam: Pupils Equal Throat Throat Exam: Oral Mucosa Bertha & Moist Neck Neck Exam: Neck Supple Pulmonary Resp Exam: Crackles, Rhonchi, Decreased Bases, Diminished Breath Sounds Cardiology CV Exam: Regular, Normal Sinus Rhythm Gastrointestinal/Abdomen GI Exam: Soft, Non-Tender Extremeties Extremities Exam: Trace Edema Neurologic Neuro Exam: Alert, Awake, Oriented Psychiatric Psych Exam: Appropriate Responses Assessment/Plan Assessment Summary: [place]/Acute Renal Failure, Fluid/Volume Overload, CHF, CKD Stage III Problem List: (1) CHF (congestive heart failure) (2) Elevated INR (3) Acute hypoxemic respiratory failure (4) A-fib (5) [id number] kidney injury Plan Urine out put is adequate. Creatinine is improving , now 1.5, possibly his baseline. Continue antibiotics. Echo results noted, cardiology following. Avoid Nephrotoxins. Need to restrict salt and fluid intake, explained to the patient. Bumex changed to PO. Increase WBC, could be due to steroid. Had Godfrey's catheter, will add Flomax. Will need to follow with urology after D/C. Problem Qualifiers (1) CHF (congestive heart failure): (2) A-fib: Qualified Code: I48.2 - Chronic atrial fibrillation Tenzin Cobos MD Sep 27, 2016 10:17
[2016-09-27] MEDS: WARFARIN SOD 2 MG TAB PO SCH (15:25)
[2016-09-27 16:00] VITALS: BP 133/77; PULSE 75; RESP 17; TEMP 96.6; O2SAT 95
[2016-09-27] MEDS ORDERED: WARFARIN SOD 1 MG TAB PO SCH (16:00)
--- NOTE | 2016-09-27 19:36 | HHI.PR ---
Subjective Remarks 86 YOWM with COPD,CHF,CMP On NC, mild sob Cough, small amount of sp no fever Breathing better no new complaint Objective Vital Signs Vital Signs Date Time Temp Pulse Resp B/P Pulse Ox O2 Delivery O2 Flow Rate FiO2 09/27/16 16:00 96.6 75 17 133/77 95 09/27/16 09:26 95 Nasal Cannula 2.00 09/27/16 08:00 97.7 73 18 131/77 95 09/27/16 07:52 Nasal Cannula 4.00 Humidified 09/27/16 00:00 96.8 81 19 124/62 94 09/26/16 20:00 96.8 88 20 138/72 95 I/O 09/26/16 09/26/16 09/26/16 09/27/16 09/27/16 09/27/16 07:00 15:00 23:00 07:00 15:00 23:00 Intake Total 240 ml 960 ml 480 ml 240 ml 480 ml Output Total 500 ml 510 ml 1300 ml 800 ml 875 ml Balance -260 ml 450 ml -820 ml -560 ml -395 ml Intake Oral 240 ml 960 ml 480 ml 240 ml 480 ml Output Urine Total 500 ml 510 ml 1300 ml 800 ml 875 ml # Bowel Movements 0 2 0 0 0 Result Diagram: 09/27/16 0455 09/27/16 0455 Objective Remarks GENERAL: Elderly male mild sob SKIN: Warm and dry. HEAD: Normocephalic. EYES: No scleral icterus. No injection or drainage. NECK: Supple, trachea midline. No JVD or lymphadenopathy. CARDIOVASCULAR: Regular rate and rhythm without murmurs, gallops, or rubs. RESPIRATORY: Breath sounds equal bilaterally. No accessory muscle use. GASTROINTESTINAL: Abdomen soft, non-tender, nondistended. MUSCULOSKELETAL: No cyanosis, or edema. BACK: Nontender without obvious deformity. No CVA tenderness. A/P Assessment and Plan COPD Basal infilt CHF CMP PHTN CLL PLAN: Cont Abx Doxy Aerosol nebs Symbicort 2 puffs bid Diurease with Bumex Wean 02 Pred 20 mg bid. Daniel Pacheco MD Sep 27, 2016 19:36
[2016-09-28] VITALS: BP 96/57; PULSE 79; RESP 17; TEMP 95.8; O2SAT 92
[2016-09-28] MEDS: INSULIN NovoLIN REGULAR SUPPLEMENTAL SCALE SQ SCH ×4 (02:00→20:00)
[2016-09-28] MEDS: CHLORHEXIDINE GLUCONATE 2 % 1 PACK (2 CLOTHS) TOP SCH ×2 (02:19→21:14)
[2016-09-28] MEDS: LEVOTHYROXINE SODIUM 25 MCG TAB PO SCH (05:05)
[2016-09-28 06:34] LABS: INTERNATIONAL NORMALIZED RATIO 1.6 RATIO; PROTHROMBIN TIME - PATIENT 18.1 SEC (9.8-11.6)
[2016-09-28 08:00] VITALS: BP 138/79; PULSE 86; RESP 17; TEMP 97.1; O2SAT 96
--- NOTE | 2016-09-28 08:41 | HHI.PR ---
Subjective Remarks States that he does not want oxygen or home health care when he goes home. He does not feel like he needs oxygen. He has 3 different walkers at home and does not need any further equipment. He states that he walked with a respiratory therapist this morning and had a 96%. He wants to be discharged home nail. He hates sitting in the hospital. He denies any shortness of breath or coughing. He states that he did not have problems urinating prior to coming in the hospital. He denies any abdominal pain. He has not had any chest pain. Objective Vitals Vital Signs Date Time Temp Pulse Resp B/P Pulse Ox O2 Delivery O2 Flow Rate FiO2 09/28/16 00:00 95.8 79 17 96/57 92 09/27/16 21:00 Nasal Cannula 3.00 Humidified 09/27/16 16:00 96.6 75 17 133/77 95 09/27/16 09:26 95 Nasal Cannula 2.00 I/O 09/27/16 09/27/16 09/27/16 09/28/16 09/28/16 09/28/16 07:00 15:00 23:00 07:00 15:00 23:00 Intake Total 240 ml 480 ml 120 ml 240 ml Output Total 800 ml 875 ml 950 ml 700 ml Balance -560 ml -395 ml -830 ml -460 ml Intake Oral 240 ml 480 ml 120 ml 240 ml Output Urine Total 800 ml 875 ml 950 ml 700 ml # Bowel Movements 0 0 1 1 Result Diagram: 09/27/16 0455 09/27/16 0455 Other Results Item Value Date Time Prothromb Time International Ratio 1.6 RATIO 09/28/16 0515 Objective Remarks GENERAL: This is a well-nourished, well-developed patient, in no apparent distress. CARDIOVASCULAR: Regular rate and rhythm RESPIRATORY: Few right sided crackles GASTROINTESTINAL: Abdomen soft, non-tender, obese, nondistended. Normal active bowel sounds MUSCULOSKELETAL: Extremities without clubbing, cyanosis, trace edema NEURO: Alert & Oriented x4 to person, place, time, situation. Moves all ext x4 A/P Assessment and Plan Acute hypoxemic and hypercapnic respiratory failure- due to combination of community-acquired pneumonia and acute on chronic systolic congestive heart failurecurrently on 3 L of oxygen. Patient tells me that he walked in the hallway with respiratory and had a 96% room air however prior per therapist's notes, patient had refused to participate and walk. Patient is extremely inconsistent with what he is willing to do. He is motivated to be discharged and has refused to go to a fpc facility or have home health care. He is also refusing to get home oxygen. He is extremely difficult patient to manage as he tells conflicting stories and declines assistance in getting the right resources for discharge planning such as home health fdc O2. We spoke extensively the criteria for discharge today. If he is not willing to participate, he is aware I cannot safely discharge him to home without any oxygen or home health care. Previous klebsiella urinary tract infectionthis has been treated per repeat urinalysis on 09/26 was negative. Urinary retention with Godfrey insertion.- Bladder training and consider Godfrey removal. Unfortunately, patient declines any home health care is willing to go home with Godfrey catheter. Will consider a trial of voiding and possible urology consultation. Right-sided community-acquired pneumonia. Moderate to large R pleural effusion patient is status post treatment with Rocephin and azithromycin. Currently on doxycycline. Pulmonary currently following. Transition from IV Solu-Medrol to prednisone. -s/p thoracentesis on 09/21 Decompensated acute on chronic systolic heart failurecontinue by mouth Bumex and Coreg 3.125 mg by mouth twice a day. Currently CHF compensated. Echo showed EF 20-25%, diffuse hypokinesis, mod-severe pulm HTN with PAP 63mmHg -nurse behavioral health care service has signed off. Acute on chronic kidney disease stage III and now with urinary retention -improving. - Monitor renal function, I's and O's, and avoid nephrotoxins. -Renal, Dr. Cobos following patient. -Renal US: Right sided renal cysts. Nonobstructing calculus lower pole left kidney. -On Allopurinol for Gout. on PO bumex. Coagulopathy secondary to Coumadin toxicityassess now resolved. -Monitor CBC and coags. s/p vitamin-K 10 mg IV push x1 in the ED for INR 14.5 - Pharmacy to dose. INR is 1.6 today. Atrial fibrillation/Peripheral vascular disease/History of diabetes mellitus/ Coronary artery disease/hypothyroidism - chronic and stable, home medication resumed. GI prophylaxis with Protonix 40 mg daily. DVT prophylaxis with SCDs/on coumadin. Discharge Planning Difficult dispositions patient has refused both home health care fpc facility. He has even refused to do a walk fit tested day with respiratory therapy to get a room air O2. Patient only wants to be discharged straight to home and it has refused to do all that is required for safe discharge planning. I spoke with him extensively at bedside the criteria he needs to meet for safe discharge home. Laxmi Zuluaga MD Sep 28, 2016 08:41
[2016-09-28] MEDS: TAMSULOSIN HCL 0.4 MG CAP PO SCH (08:59)
[2016-09-28] MEDS: BUDESONIDE-FORMOTEROL 160/4.5 MCG INHALER INH SCH ×2 (09:00→21:12)
[2016-09-28] MEDS: CARVEDILOL 3.125 MG TAB PO SCH ×2 (09:00→21:00)
[2016-09-28] MEDS: DOXYCYCLINE HYCLATE 100 MG TAB PO SCH ×2 (09:00→21:11)
[2016-09-28] MEDS: TIOTROPIUM BROMIDE 18 MCG INH INH SCH (09:00)
[2016-09-28] MEDS: ALLOPURINOL 100 MG TAB PO SCH (09:00)
[2016-09-28] MEDS: BUMETANIDE 1 MG TAB PO SCH (09:00)
[2016-09-28] MEDS: PANTOPRAZOLE SOD 20 MG DELAYED RELEASE TAB PO SCH (09:01)
[2016-09-28] MEDS: CHOLECALCIFEROL (VIT D3) 1000 UNIT TAB PO SCH (09:04)
--- NOTE | 2016-09-28 11:23 | HHI.NPPN ---
Subjective History of Present Illness 86-year-old male with past medical history of atrial fibrillation, ischemic heart disease, congestive heart failure, chronic obstructive pulmonary disease, with low ejection fraction of 20%, chronic kidney disease who came to the hospital with complaint of worsening shortness of breath. I was called to see the patient because of elevated BUN and creatinine. The patient has BUN of 65 and creatinine of 2.4 on presentation. Previously he had creatinine of 1.2-1.4 most of the time in the past. Additional Remarks Patient is alert, no SOB,now with Godfrey's catheter, no complain, getting the PT. Review of Systems General Constitutional: Fatigue Respiratory Lungs: SOB, Sputum, Wheeze Cardiovascular Cardiac: Edema, GRACIA Objective Data Data 09/27/16 09/28/16 19:00 07:00 Intake Total 480 ml 360 ml Output Total 875 ml 1650 ml Balance -395 ml -1290 ml Intake Oral 480 ml 360 ml Output Urine Total 875 ml 1650 ml # Bowel Movements 0 2 Vital Signs Date Time Temp Pulse Resp B/P Pulse Ox O2 Delivery O2 Flow Rate FiO2 09/28/16 08:00 97.1 86 17 138/79 96 09/28/16 00:00 95.8 79 17 96/57 92 09/27/16 21:00 Nasal Cannula 3.00 Humidified 09/27/16 16:00 96.6 75 17 133/77 95 -: 09/27/16 0455 09/27/16 0455 Physical Exam General Appearance: No Acute Distress, Comfortable Eyes Eye Exam: Pupils Equal Throat Throat Exam: Oral Mucosa Kief & Moist Neck Neck Exam: Neck Supple Pulmonary Resp Exam: Crackles, Rhonchi, Decreased Bases, Diminished Breath Sounds Cardiology CV Exam: Regular, Normal Sinus Rhythm Gastrointestinal/Abdomen GI Exam: Soft, Non-Tender Extremeties Extremities Exam: Trace Edema Neurologic Neuro Exam: Alert, Awake, Oriented Psychiatric Psych Exam: Appropriate Responses Assessment/Plan Assessment Summary: [place]/Acute Renal Failure, Fluid/Volume Overload, CHF, CKD Stage III Problem List: (1) CHF (congestive heart failure) (2) Elevated INR (3) Acute hypoxemic respiratory failure (4) A-fib (5) Hywvi-uv-eurhcwr kidney injury Plan Urine out put is adequate. Creatinine was 1.5 yesterday, possibly his baseline. Continue antibiotics. Echo results noted, cardiology following. Avoid Nephrotoxins. Need to restrict salt and fluid intake, explained to the patient. Bumex changed to PO. Increase WBC, could be due to steroid. Had Godfrey's catheter, will add Flomax. Will need to follow with urology after D/C. Can be discharged from Nephrology, he will follow with Nephrology in [place]. Problem Qualifiers (1) CHF (congestive heart failure): (2) A-fib: Qualified Code: I48.2 - Chronic atrial fibrillation Tenzin Cobos MD Sep 28, 2016 11:23
[2016-09-28 12:00] VITALS: BP 139/76; PULSE 72; RESP 18; TEMP 97; O2SAT 93
[2016-09-28 12:53] VITALS: O2SAT 93
[2016-09-28] MEDS: WARFARIN SOD 2 MG TAB PO SCH (15:36)
[2016-09-28 16:00] VITALS: BP 125/77; PULSE 76; RESP 17; TEMP 96.8; O2SAT 92
[2016-09-28] MEDS ORDERED: WARFARIN SOD 1 MG TAB PO SCH (16:00)
--- NOTE | 2016-09-28 18:28 | HHI.PR ---
Subjective Remarks 86 YOWM with COPD,CHF,CMP On NC, mild sob Cough, small amount of sp no fever Breathing better no new complaint had difficulty urinating, " i am peeing good now" Objective Vital Signs Vital Signs Date Time Temp Pulse Resp B/P Pulse Ox O2 Delivery O2 Flow Rate FiO2 09/28/16 16:00 96.8 76 17 125/77 92 09/28/16 12:53 93 Nasal Cannula 3.00 09/28/16 12:00 97.0 72 18 139/76 93 09/28/16 08:00 97.1 86 17 138/79 96 09/28/16 00:00 95.8 79 17 96/57 92 09/27/16 21:00 Nasal Cannula 3.00 Humidified I/O 09/27/16 09/27/16 09/27/16 09/28/16 09/28/16 09/28/16 07:00 15:00 23:00 07:00 15:00 23:00 Intake Total 240 ml 480 ml 120 ml 240 ml 840 ml Output Total 800 ml 875 ml 950 ml 700 ml 250 ml Balance -560 ml -395 ml -830 ml -460 ml 590 ml Intake Oral 240 ml 480 ml 120 ml 240 ml 840 ml Output Urine Total 800 ml 875 ml 950 ml 700 ml 250 ml # Bowel Movements 0 0 1 1 3 Result Diagram: 09/27/16 0455 09/27/16 0455 Objective Remarks GENERAL: Elderly male mild sob SKIN: Warm and dry. HEAD: Normocephalic. EYES: No scleral icterus. No injection or drainage. NECK: Supple, trachea midline. No JVD or lymphadenopathy. CARDIOVASCULAR: Regular rate and rhythm without murmurs, gallops, or rubs. RESPIRATORY: Breath sounds equal bilaterally. No accessory muscle use. GASTROINTESTINAL: Abdomen soft, non-tender, nondistended. MUSCULOSKELETAL: No cyanosis, or edema. BACK: Nontender without obvious deformity. No CVA tenderness. A/P Assessment and Plan COPD Basal infilt CHF CMP PHTN CLL PLAN: Cont Abx Doxy Aerosol nebs Symbicort 2 puffs bid Wean 02 Pred 20 mg bid. dc plans underway. Daniel Pacheco MD Sep 28, 2016 18:28
[2016-09-28 20:48] VITALS: BP 98/50; PULSE 71; RESP 22; TEMP 96.9; O2SAT 97
[2016-09-29 00:10] VITALS: BP 110/60; PULSE 62; RESP 20; TEMP 96.9; O2SAT 97
[2016-09-29] MEDS: INSULIN NovoLIN REGULAR SUPPLEMENTAL SCALE SQ SCH ×4 (02:00→20:00)
[2016-09-29 05:05] LABS: AUTOMATED NEUTROPHIL # 9.3 TH/MM3 (1.8-7.7); BASOPHIL % 0.1 % (0.0-2.0); EOSINOPHIL # 0.1 TH/MM3 (0-0.4); EOSINOPHIL % 0.2 % (0.0-4.0); HEMATOCRIT 49.1 % (39.0-51.0); INTERNATIONAL NORMALIZED RATIO 1.7 RATIO; LYMPH % 77.6 % (9.0-44.0); LYMPHOCYTE # 38.6 TH/MM3 (1.0-4.8); MEAN CORPUSCULAR HEMOGLOBIN 31.3 PG (27.0-34.0); MEAN CORPUSCULAR HGB CONC 32.6 % (32.0-36.0); MONO % 3.3 % (0.0-8.0); NEUT % 18.8 % (16.0-70.0); PLATELET COUNT 161 TH/MM3 (150-450); PROTHROMBIN TIME - PATIENT 18.8 SEC (9.8-11.6); RED BLOOD COUNT 5.11 MIL/MM3 (4.50-5.90); RED CELL DISTRIBUTION WIDTH 16.3 % (11.6-17.2); WHITE BLOOD COUNT 49.7 TH/MM3 (4.0-11.0)
[2016-09-29] MEDS: LEVOTHYROXINE SODIUM 25 MCG TAB PO SCH (05:06)
[2016-09-29 05:10] LABS: HEMO FLAGS AUTO DIFF
[2016-09-29 08:00] VITALS: BP 121/64; PULSE 73; RESP 14; TEMP 95.3; O2SAT 95
[2016-09-29 08:08] LABS: NEUTROPHIL # MANUAL DIFF 8.9 TH/MM3 (1.8-7.7); POLYS (SEG NEUTROPHILS) 18 % (16-70); WBC DIFF SAMPLE 100
[2016-09-29 08:11] LABS: PLATELET ESTIMATE SMEAR NORMAL (NORMAL); SCAN/DIFF FINAL DIFF MANUAL; SMUDGE CELLS PRESENT PRESENT
[2016-09-29 08:13] LABS: OVALOCYTES 1+ (NORMAL); PLATELET MORPHOLOGY NORMAL (NORMAL)
[2016-09-29] MEDS: ALLOPURINOL 100 MG TAB PO SCH (09:00)
[2016-09-29] MEDS: TIOTROPIUM BROMIDE 18 MCG INH INH SCH (09:00)
[2016-09-29] MEDS: BUMETANIDE 1 MG TAB PO SCH (09:04)
[2016-09-29] MEDS: predniSONE 20 MG TAB PO SCH (09:05)
[2016-09-29] MEDS: PANTOPRAZOLE SOD 20 MG DELAYED RELEASE TAB PO SCH (09:05)
[2016-09-29] MEDS: CHOLECALCIFEROL (VIT D3) 1000 UNIT TAB PO SCH (09:05)
[2016-09-29] MEDS: DOXYCYCLINE HYCLATE 100 MG TAB PO SCH ×2 (09:05→21:32)
[2016-09-29] MEDS: CARVEDILOL 3.125 MG TAB PO SCH ×2 (09:05→21:00)
[2016-09-29] MEDS: TAMSULOSIN HCL 0.4 MG CAP PO SCH (09:05)
[2016-09-29] MEDS: BUDESONIDE-FORMOTEROL 160/4.5 MCG INHALER INH SCH ×2 (09:06→21:37)
[2016-09-29 12:00] VITALS: BP 138/83; PULSE 84; RESP 12; TEMP 95.4; O2SAT 91
--- NOTE | 2016-09-29 15:46 | HHI.PR ---
Subjective Remarks Patient states that he is still declining oxygen or any type of equipment nor any type of placement for home. He promises to at least walk with respiratory therapist today to determine his room air walk fit test. Objective Vitals Vital Signs Date Time Temp Pulse Resp B/P Pulse Ox O2 Delivery O2 Flow Rate FiO2 09/29/16 13:51 Nasal Cannula 2.00 09/29/16 12:00 95.4 84 12 138/83 91 09/29/16 08:00 95.3 73 14 121/64 95 09/29/16 00:10 96.9 62 20 110/60 97 09/28/16 20:48 96.9 71 22 98/50 97 09/28/16 16:00 96.8 76 17 125/77 92 I/O 09/28/16 09/28/16 09/28/16 09/29/16 09/29/16 09/29/16 07:00 15:00 23:00 07:00 15:00 23:00 Intake Total 240 ml 840 ml 480 ml 280 ml Output Total 700 ml 250 ml 600 ml 400 ml Balance -460 ml 590 ml -120 ml -120 ml Intake Oral 240 ml 840 ml 480 ml 280 ml Output Urine Total 700 ml 250 ml 600 ml 400 ml # Voids 3 # Bowel Movements 1 3 1 3 Result Diagram: 09/29/16 0401 09/27/16 0455 Other Results Item Value Date Time Prothrombin Time 18.8 SEC H 09/29/16 0401 Objective Remarks GENERAL: This is a well-nourished, well-developed patient, in no apparent distress. CARDIOVASCULAR: Regular rate and rhythm RESPIRATORY: Few right sided crackles, otherwise clear GASTROINTESTINAL: Abdomen soft, non-tender, obese, nondistended. Normal active bowel sounds MUSCULOSKELETAL: Extremities without clubbing, cyanosis, trace edema NEURO: Alert & Oriented x4 to person, place, time, situation. Moves all ext x4 A/P Assessment and Plan Acute hypoxemic and hypercapnic respiratory failure- due to combination of community-acquired pneumonia and acute on chronic systolic congestive heart failurecurrently on 2 L of oxygen. Previously Patient tells me that he walked in the hallway with respiratory and had a 96% room air however prior per therapist's notes, patient had refused to participate and walk. Patient is extremely inconsistent with what he is willing to do. He is motivated to be discharged and has refused to go to a shelter facility or have home health care. He is also refusing to get home oxygen. He is extremely difficult patient to manage as he tells conflicting stories and declines assistance in getting the right resources for discharge planning such as home health [facility] O2. We spoke extensively the criteria for discharge today. If he is not willing to participate, he is aware I cannot safely discharge him to home without any oxygen or home health care. He finally reluctantly did completed walk fit test. This time it is 89% on room air. Patient will need to have more improvements on this if he is safe to be discharged without oxygen to home. Previous klebsiella urinary tract infectionthis has been treated per repeat urinalysis on 09/26 was negative. Urinary retention with Godfrey insertion.- Now patient had complained bladder training and patellar removal. Right-sided community-acquired pneumonia. Moderate to large R pleural effusion patient is status post treatment with Rocephin and azithromycin. Currently on doxycycline. Pulmonary currently following. Transition from IV Solu-Medrol to prednisone. -s/p thoracentesis on 09/21 Leukocytosislevel trending up higher patient seems stable and no signs of decompensation, will repeat another level in the morning, decreasing prednisone Decompensated acute on chronic systolic heart failurecontinue by mouth Bumex and Coreg 3.125 mg by mouth twice a day. Currently CHF compensated. Echo showed EF 20-25%, diffuse hypokinesis, mod-severe pulm HTN with PAP 63mmHg -business services associate service has signed off. Acute on chronic kidney disease stage III and now with urinary retention -improving. - Monitor renal function, I's and O's, and avoid nephrotoxins. -Renal, Dr. Cobos following patient. -Renal US: Right sided renal cysts. Nonobstructing calculus lower pole left kidney. -On Allopurinol for Gout. on PO bumex. Coagulopathy secondary to Coumadin toxicityassess now resolved. -Monitor CBC and coags. s/p vitamin K 10 mg IV push x1 in the ED for INR 14.5 - Pharmacy to dose. INR is 1.7 today. Atrial fibrillation/Peripheral vascular disease/History of diabetes mellitus/ Coronary artery disease/hypothyroidism - chronic and stable, home medication resumed. GI prophylaxis with Protonix 40 mg daily. DVT prophylaxis with SCDs/on coumadin. Discharge Planning Difficult dispositions patient has refused both home health care shelter facility. He has finally agreed to do a walk fit tested day with respiratory therapy to get a room air O2 which is 89% today. Patient only wants to be discharged straight to home and it has refused to do all that is required for safe discharge planning. I spoke with him extensively at bedside the criteria he needs to meet for safe discharge home. Will reattempt another walk fit test in the morning, if sats are stable on room air , may be discharged to home Laxmi Zuluaga MD Sep 29, 2016 15:46
[2016-09-29] MEDS: WARFARIN SOD 2 MG TAB PO SCH (15:56)
[2016-09-29 16:00] VITALS: BP 108/67; PULSE 58; RESP 14; TEMP 96; O2SAT 93
[2016-09-29] MEDS ORDERED: WARFARIN SOD 1 MG TAB PO SCH (16:00)
--- NOTE | 2016-09-29 17:37 | HHI.PR ---
Subjective Remarks 86 YOWM with COPD,CHF,CMP On NC, mild sob Cough, small amount of sp no fever Breathing better no new complaint Objective Vital Signs Vital Signs Date Time Temp Pulse Resp B/P Pulse Ox O2 Delivery O2 Flow Rate FiO2 09/29/16 16:00 96.0 58 14 108/67 93 09/29/16 13:51 Nasal Cannula 2.00 09/29/16 12:00 95.4 84 12 138/83 91 09/29/16 08:00 95.3 73 14 121/64 95 09/29/16 00:10 96.9 62 20 110/60 97 09/28/16 20:48 96.9 71 22 98/50 97 I/O 09/28/16 09/28/16 09/28/16 09/29/16 09/29/16 09/29/16 07:00 15:00 23:00 07:00 15:00 23:00 Intake Total 240 ml 840 ml 480 ml 280 ml 720 ml Output Total 700 ml 250 ml 600 ml 400 ml 200 ml Balance -460 ml 590 ml -120 ml -120 ml 520 ml Intake Oral 240 ml 840 ml 480 ml 280 ml 720 ml Output Urine Total 700 ml 250 ml 600 ml 400 ml 200 ml # Voids 3 2 # Bowel Movements 1 3 1 3 4 Result Diagram: 09/29/16 0401 09/27/16 0455 Objective Remarks GENERAL: Elderly male mild sob SKIN: Warm and dry. HEAD: Normocephalic. EYES: No scleral icterus. No injection or drainage. NECK: Supple, trachea midline. No JVD or lymphadenopathy. CARDIOVASCULAR: Regular rate and rhythm without murmurs, gallops, or rubs. RESPIRATORY: Breath sounds equal bilaterally. No accessory muscle use. GASTROINTESTINAL: Abdomen soft, non-tender, nondistended. MUSCULOSKELETAL: No cyanosis, or edema. BACK: Nontender without obvious deformity. No CVA tenderness. A/P Assessment and Plan COPD Basal infilt CHF CMP PHTN CLL PLAN: Cont Abx Doxy Aerosol nebs Symbicort 2 puffs bid Wean 02 Pred 20 mg bid. dc plans underway. Available prn over weekend. Daniel Pacheco MD Sep 29, 2016 17:36
[2016-09-29 20:36] VITALS: BP 105/52; PULSE 82; RESP 21; TEMP 98.9; O2SAT 93
[2016-09-30 00:25] VITALS: BP 125/67; PULSE 90; RESP 21; TEMP 96.2; O2SAT 92
[2016-09-30] MEDS: INSULIN NovoLIN REGULAR SUPPLEMENTAL SCALE SQ SCH ×3 (02:00→14:00)
[2016-09-30] MEDS: CHLORHEXIDINE GLUCONATE 2 % 1 PACK (2 CLOTHS) TOP SCH (04:00)
[2016-09-30] MEDS: LEVOTHYROXINE SODIUM 25 MCG TAB PO SCH (05:49)
[2016-09-30 05:59] LABS: AUTOMATED NEUTROPHIL # 11.1 TH/MM3 (1.8-7.7); BASOPHIL # 0.1 TH/MM3 (0-0.2); BASOPHIL % 0.2 % (0.0-2.0); EOSINOPHIL # 0.1 TH/MM3 (0-0.4); EOSINOPHIL % 0.1 % (0.0-4.0); HEMATOCRIT 47.5 % (39.0-51.0); LYMPH % 77.1 % (9.0-44.0); LYMPHOCYTE # 42.6 TH/MM3 (1.0-4.8); MEAN CORPUSCULAR HEMOGLOBIN 30.8 PG (27.0-34.0); MEAN CORPUSCULAR HGB CONC 32.1 % (32.0-36.0); MONO % 2.5 % (0.0-8.0); NEUT % 20.1 % (16.0-70.0); PLATELET COUNT 168 TH/MM3 (150-450); RED BLOOD COUNT 4.95 MIL/MM3 (4.50-5.90); RED CELL DISTRIBUTION WIDTH 16.5 % (11.6-17.2); WHITE BLOOD COUNT 55.3 TH/MM3 (4.0-11.0)
[2016-09-30 06:04] LABS: HEMO FLAGS AUTO DIFF
[2016-09-30 06:14] LABS: INTERNATIONAL NORMALIZED RATIO 1.7 RATIO; PROTHROMBIN TIME - PATIENT 19.7 SEC (9.8-11.6)
[2016-09-30 08:00] VITALS: BP 132/66; PULSE 73; RESP 18; TEMP 96.4; O2SAT 92
[2016-09-30] MEDS: BUDESONIDE-FORMOTEROL 160/4.5 MCG INHALER INH SCH (09:00)
[2016-09-30] MEDS: ALLOPURINOL 100 MG TAB PO SCH (09:00)
[2016-09-30] MEDS: TIOTROPIUM BROMIDE 18 MCG INH INH SCH (09:00)
[2016-09-30] MEDS: TAMSULOSIN HCL 0.4 MG CAP PO SCH (09:20)
[2016-09-30] MEDS: PANTOPRAZOLE SOD 20 MG DELAYED RELEASE TAB PO SCH (09:20)
[2016-09-30] MEDS: CHOLECALCIFEROL (VIT D3) 1000 UNIT TAB PO SCH (09:20)
[2016-09-30] MEDS: predniSONE 20 MG TAB PO SCH (09:20)
[2016-09-30] MEDS: DOXYCYCLINE HYCLATE 100 MG TAB PO SCH (09:20)
[2016-09-30] MEDS: CARVEDILOL 3.125 MG TAB PO SCH (09:20)
[2016-09-30] MEDS: BUMETANIDE 1 MG TAB PO SCH (09:21)
[2016-09-30 09:36] LABS: BANDS 2 % (0-6); EOSINOPHILS 1 % (0-4); NEUTROPHIL # MANUAL DIFF 3.3 TH/MM3 (1.8-7.7); POLYS (SEG NEUTROPHILS) 4 % (16-70); SMUDGE CELLS PRESENT PRESENT; WBC DIFF SAMPLE 100
[2016-09-30 09:38] LABS: PLATELET ESTIMATE SMEAR NORMAL (NORMAL); PLATELET MORPHOLOGY NORMAL (NORMAL); SCAN/DIFF FINAL DIFF MANUAL
[2016-09-30] MEDS ORDERED: CARV6.252 PO (11:13)
[2016-09-30] MEDS ORDERED: DOXY100T PO (11:13)
[2016-09-30] MEDS ORDERED: PRED10 PO (11:13)
[2016-09-30] MEDS ORDERED: PANT20 PO (11:13)
[2016-09-30] MEDS ORDERED: IPRASOL INH (11:13)
[2016-09-30] MEDS ORDERED: FURO40TA PO (11:13)
[2016-09-30] MEDS ORDERED: SYMB160A INH (11:13)
[2016-09-30] MEDS ORDERED: BUME1TAB PO (11:24)
--- NOTE | 2016-09-30 11:28 | HHI.DS ---
Discharge Summary Admission Date Sep 19, 2016 at 13:29 Discharge Date: Sep 30, 2016 Admitting Diagnosis CHF exacerbation, supratherapeutic INR (1) CHF (congestive heart failure) ICD Code: I50.9 (2) CAP (community acquired pneumonia) ICD Code: J18.9 (3) Elevated INR ICD Code: R79.1 Procedures Thoracentesis. Brief History - From Admission The patient is an 86-year-old male with past medical history of chronic atrial fibrillation on Coumadin, CHF, COPD, peripheral vascular disease, diabetes mellitus, chronic kidney disease, cardiomyopathy with EF of 20%, who presented to the ED for worsening shortness of breath for the past several days. He denies any associated symptoms of chest pain, cough or any constitutional symptoms. In addition, the patient denies any nausea, vomiting or abdominal pain. On arrival to the ED the patient was hypoxic with O2 saturation in the 80s. He was subsequently placed on a non-rebreather mask. An ABG was obtained which showed a pH of 7.27, CO2 51, PAO2 239, bicarb of 23 and saturation 96%. His laboratory data was significant for acute kidney injury with creatinine level of 2.42 and BNP of 3058. Also, he was found to have leukocytosis with a WBC of 14.5 and was coagulopathic with an INR greater than 14.5. His chest x-ray in the ER showed right perihilar airspace disease, likely pneumonia. He is in the process of receiving vitamin-K 10 mg IV. In addition, the patient received Rocephin, azithromycin and Lasix 40 mg IV push. The patient is on p.o. prednisone at home. CBC/BMP: 09/30/16 0440 09/27/16 0455 Significant Findings Laboratory Tests Test 09/28/16 09/29/16 09/30/16 05:15 04:01 04:40 Prothrombin Time 18.1 SEC 18.8 SEC 19.7 SEC (9.8-11.6) (9.8-11.6) (9.8-11.6) White Blood Count 49.7 TH/MM3 55.3 TH/MM3 (4.0-11.0) (4.0-11.0) Lymphocytes (%) (Auto) 77.6 % 77.1 % (9.0-44.0) (9.0-44.0) Neutrophils # (Auto) 9.3 TH/MM3 11.1 TH/MM3 (1.8-7.7) (1.8-7.7) Lymphocytes # (Auto) 38.6 TH/MM3 42.6 TH/MM3 (1.0-4.8) (1.0-4.8) Monocytes # (Auto) 1.7 TH/MM3 1.4 TH/MM3 (0-0.9) (0-0.9) Lymphocytes % 80 % (9-44) 93 % (9-44) Neutrophils # (Manual) 8.9 TH/MM3 (1.8-7.7) Ovalocytes 1+ (NORMAL) Neutrophils % (Manual) 4 % (16-70) Imaging Last Impressions Chest X-Ray 09/26/16 0000 Signed Impressions: Service Date/Time: Monday, September 26, 2016 11:34 - CONCLUSION: Worse consolidation right lower lobe since previous film. A combination of pleural effusion and air space disease. Mat Maurice MD Renal Ultrasound 09/19/16 0000 Signed Impressions: Service Date/Time: Monday, September 19, 2016 14:57 - CONCLUSION: 1. Right sided renal cysts. 2. Nonobstructing calculus lower pole left kidney as described above. 3. Ascites and right pleural effusion. Clayton Contreras MD Head CT 09/19/16 0000 Signed Impressions: Service Date/Time: Monday, September 19, 2016 15:48 - CONCLUSION: 1. Remote lacunar infarcts. 2. No acute intracranial abnormality. Clayton Contreras MD PE at Discharge GENERAL: Patient lying in bed. Appears controlled. On 1/2 L nasal cannula saturating 95%. SKIN: Warm and dry. HEAD: Normocephalic. EYES: No scleral icterus. No injection or drainage. NECK: Supple, trachea midline. No JVD. CARDIOVASCULAR: Regular rate and rhythm without murmurs, gallops, or rubs. RESPIRATORY: Breath sounds equal bilaterally. No accessory muscle use. GASTROINTESTINAL: Abdomen soft, non-tender, nondistended. MUSCULOSKELETAL: No cyanosis, or edema. Moves all extremities. BACK: Nontender without obvious deformity. No CVA tenderness. Pt update on day of discharge She says he feels very well. Denies any chest pain or shortness of breath. Says he feels like going home. Hospital Course Acute hypoxemic and hypercapnic respiratory failure- due to combination of community-acquired pneumonia and acute on chronic systolic congestive heart failurecurrently on 2 L of oxygen. Previously Patient tells me that he walked in the hallway with respiratory and had a 96% room air however prior per therapist's notes, patient had refused to participate and walk. Patient is extremely inconsistent with what he is willing to do. He is motivated to be discharged and has refused to go to a long term facility or have home health care. He is also refusing to get home oxygen. He is extremely difficult patient to manage as he tells conflicting stories and declines assistance in getting the right resources for discharge planning such as home health senior care O2. We spoke extensively the criteria for discharge today. If he is not willing to participate, he is aware I cannot safely discharge him to home without any oxygen or home health care. He finally reluctantly did completed walk fit test. This time it is 89% on room air. Patient will need to have more improvements on this if he is safe to be discharged without oxygen to home. Again completed home oxygen evaluation on 09/30. Previous klebsiella urinary tract infectionthis has been treated per repeat urinalysis on 09/26 was negative. Urinary retention with Godfrey insertion.- Now patient had complained bladder training and patellar removal. Patient respiratory status improved greatly with diuresis on by mouth Bumex. Cardiology, pulmonology were consulted. He was treated with doxycycline, and we 'll continue this to complete treatment course. He will be continued on Bumex, daily weights close follow-up with primary care, cardiology as outpatient. For problem-based summary for most recent progress note, please see below. //Right-sided community-acquired pneumonia. Moderate to large R pleural effusion patient is status post treatment with Rocephin and azithromycin. Currently on doxycycline. Pulmonary currently following. Transition from IV Solu-Medrol to prednisone. -s/p thoracentesis on 09/21 -likely from CHF. -Patient will continue on doxycycline to complete treatment course. We'll need to follow-up with pulmonology at [facility]. //Leukocytosis -acute on chronic. -Patient will need to follow-up with hematology as outpatient. //Decompensated acute on chronic systolic heart failurecontinue by mouth Bumex and Coreg 3.125 mg by mouth twice a day. Currently CHF compensated. Echo showed EF 20-25%, diffuse hypokinesis, mod-severe pulm HTN with PAP 63mmHg -[employer] table [employer]er service has signed off. -Daily weights, fluid restriction of 800 mL daily. Follow-up with cardiology at [facility]. //Acute on chronic kidney disease stage III and now with urinary retention -improving. - Monitor renal function, I's and O's, and avoid nephrotoxins. -Renal, Dr. Cobos following patient. -Renal US: Right sided renal cysts. Nonobstructing calculus lower pole left kidney. -On Allopurinol for Gout. on PO bumex. -Follow up with nephrology at [facility]. //Coagulopathy secondary to Coumadin toxicityassess now resolved. -Monitor CBC and coags. s/p vitamin K 10 mg IV push x1 in the ED for INR 14.5 - Pharmacy to dose. INR is 1.7 today. //Atrial fibrillation/Peripheral vascular disease/History of diabetes mellitus/ Coronary artery disease/hypothyroidism - chronic and stable, home medication resumed. -Supratherapeutic INR on admission. We'll continue to milligrams warfarin daily. Close follow-up and monitoring with primary care. Patient conveys understanding. //Prophylaxis GI prophylaxis with Protonix 40 mg daily. DVT prophylaxis with SCDs/on coumadin. Pt Condition on Discharge: Good Discharge Disposition: Disch w/ Home Health Serv Discharge Time: > 30 minutes Discharge Instructions DIET: Follow Instructions for: As Tolerated, No Restrictions Additional Diet Instructions: measure weight daily. If weight increases by more than 3 pounds in 2 days, or more than 5 pounds in a week, please contact your primary care doctor, as this emi indicated fluid overload. Fluid Restrictions: 1800ml Activities you can perform: Regular-No Restrictions Follow up Referrals: Cardiology - 1 Week with [facility] PCP Follow-up - [facility] Pulmonology - [facility] New Medications: Carvedilol (Carvedilol) 6.25 Mg Tab 6.25 MG PO BID #60 Ref 0 TAB Budesonide-Formoterol Inh (Symbicort Inh) 160-4.5 Mcg/Act Aero 1 PUFF INH Q12HR COPD #1 BOX Bumetanide (Bumetanide) 1 Mg Tab 2 MG PO DAILY CHF #30 TAB Doxycycline Hyclate (Doxycycline Hyclate) 100 Mg Tab 100 MG PO Q12HR pneumonia #18 TAB Ipratropium-Albuterol Neb (Duoneb) 0.5-2.5 Mg/3 Ml Neb 1 AMPULE INH Q2HR NEB PRN WHEEZING Days 30 ML Pantoprazole (Protonix) 20 Mg Tab 20 MG PO DAILY prevent ulcer #30 TAB Changed Medications: Prednisone (Prednisone) 10 Mg Tab 10 MG PO DAILY 20mg daily for 3 days; 10mg daily until followup with pulmonology. COPD #33 Ref 0 TAB (Medication details modified) Continued Medications: Allopurinol (Allopurinol) 100 Mg Tab 100 MG PO DAILY Gout #30 Ref 0 TAB Cholecalciferol (Vitamin D-3) 1,000 Unit Tab 1000 UNITS PO DAILY #30 Ref 0 TAB Furosemide (Lasix) 80 Mg Tab 80 MG PO DAILY #30 Ref 0 TAB Hydrochlorothiazide (Hydrochlorothiazide) 12.5 Mg Cap 12.5 MG PO DAILY #30 Ref 0 CAP Levothyroxine (Synthroid) 25 Mcg Tab 25 MCG PO DAILY Thyroid #30 Ref 0 TAB Pravastatin (Pravastatin) 40 Mg Tab 40 MG PO DAILY Cholesterol Management #30 Ref 0 TAB Tamsulosin (Tamsulosin) 0.4 Mg Cap 0.4 MG PO HS Manage Prostate Problems #30 Ref 0 CAP Warfarin (Coumadin) 2 Mg Tab 2 MG PO DAILY Prevent Blood Clot #30 Ref 0 TAB Discontinued Medications: Carvedilol (Carvedilol) 12.5 Mg Tab 25 MG PO BID #60 Ref 0 TAB Lisinopril (Lisinopril) 5 Mg Tab 5 MG PO DAILY Blood Pressure Management #30 Ref 0 TAB Potassium Chloride ER (Potassium Chloride ER) 10 Meq Cap 10 MEQ PO DAILY Electrolyte Replacement #30 Ref 0 CAP Yusef Mcfarland MD Sep 30, 2016 11:28
--- NOTE | 2016-09-30 11:31 | HHI.FF ---
Face to Face Verification Diagnosis: (1) CHF (congestive heart failure) (2) A-fib (3) CHF exacerbation (4) Supratherapeutic INR Physical Therapy Order: Evaluate and Treat Home Health Nursing Order: Medical education Nursing assessment with vital signs Instructions: Home health nurse for medication management. Patient also need to be instructed on daily weights, fluid restrictions. Home Health Aide Order: To Assist In: Bathing and personal care I have seen patient Yrn Jr Reid on 09/30/16. My clinical findings support the need for the requested home health care services because: Deconditioned w/ increased weakness I certify that my clinical findings support that this patient is homebound because: Unsafe to leave home unassisted Yusef Mcfarland MD Sep 30, 2016 11:31
[2016-09-30 12:00] VITALS: BP 121/63; PULSE 73; RESP 17; TEMP 96; O2SAT 94
[2016-09-30] MEDS ORDERED: WARFARIN SOD 2 MG TAB PO ONE (16:00)
== END 2016-09-30 15:05 | disposition home or self-care (01) | DRG 189 ==
LOC: NEPE 11:38 → NEDA 13:29 → HIME 16:05 → N07B 09-22 21:26
PROVIDERS: ADMIT Internal Medicine; ATTEND Internal Medicine
PROC: 5A09557 Assistance with Respiratory Ventilation, Greater than 96 Consecutive Hours, Continuous Positive Airway Pressure (ICD-10-PCS; principal; 2016-09-19)
PROC: 0W993ZX Drainage of Right Pleural Cavity, Percutaneous Approach, Diagnostic (ICD-10-PCS; 2016-09-21)
DX: J96.02 Acute respiratory failure with hypercapnia (principal); J96.01 Acute respiratory failure with hypoxia; J44.0 Chronic obstructive pulmonary disease with (acute) lower respiratory infection; J18.9 Pneumonia, unspecified organism; I50.23 Acute on chronic systolic (congestive) heart failure; N17.9 Acute kidney failure, unspecified; C91.10 Chronic lymphocytic leukemia of B-cell type not having achieved remission; N18.3 Chronic kidney disease, stage 3 (moderate); J90 Pleural effusion, not elsewhere classified; B96.1 Klebsiella pneumoniae [K. pneumoniae] as the cause of diseases classified elsewhere; I42.9 Cardiomyopathy, unspecified; N39.0 Urinary tract infection, site not specified; I48.2 Chronic atrial fibrillation; E11.51 Type 2 diabetes mellitus with diabetic peripheral angiopathy without gangrene; R79.1 Abnormal coagulation profile; T45.511A Poisoning by anticoagulants, accidental (unintentional), initial encounter; E03.9 Hypothyroidism, unspecified; I25.10 Atherosclerotic heart disease of native coronary artery without angina pectoris; R33.9 Retention of urine, unspecified; I12.9 Hypertensive chronic kidney disease with stage 1 through stage 4 chronic kidney disease, or unspecified chronic kidney disease; N40.0 Benign prostatic hyperplasia without lower urinary tract symptoms; Z79.52 Long term (current) use of systemic steroids; Z95.810 Presence of automatic (implantable) cardiac defibrillator; I27.2 Other secondary pulmonary hypertension; M10.9 Gout, unspecified; Z87.891 Personal history of nicotine dependence; Z23 Encounter for immunization
CPT/HCPCS: 32554; 36600; 70450; 71010; 76775; 76937; 80048; 80053; 81001; 82150; 82550; 82552; 82805; 82945; 82948; 83605; 83615; 83735; 83880; 83986; 84157; 84443; 84484; 85007; 85027; 85610; 85730; 87015; 87040; 87070; 87077; 87086; 87102; 87116; 87186; 87205; 87206; 87449; 87641; 88112; 89051; 90471; 90732; 93005; 93306; 94002; 94003; 94620; 94640; 94664; C9113; G0009; J0456; J0696; J1940; J2920; J3430; J7050; J7512; J7613